=== PATIENT | male | born 1950 ===

== ENCOUNTER 2017-04-28 12:01 | Inpatient (IN) | payer MEDICARE ==
[2017-04-28] MEDS ORDERED: Ipratropium 0.02% Inhal Soln (0.5 mg/2.5 ml) UD IH STA ×2 (12:28)
[2017-04-28] MEDS ORDERED: Levalbuterol 1.25 MG/3 ML Inhal Soln UD IH STA ×2 (12:28)
[2017-04-28] MEDS ORDERED: guaiFENesin 200 mg/10 ml Syrup UD PO STA (12:29)
--- NOTE | 2017-04-28 12:30 | ED PDOC ---
Arrival/HPI - General Chief Complaint: Shortness Of Breath Time Seen by Provider: 04/28/17 12:03 Historian: Patient - History of Present Illness Narrative History of Present Illness (Text): 04/28/17 12:26 Benny Chavez is a 66 year old male, with a history of ESRD on dialysis MWF, hypertension, Colon CA in remission, diabetes and CABG, presents to the emergency department complaining of 1 month duration of shortness of breath and wheezing. Patient is also complaining of productive cough. He reports he was evaluated by PMD for similar symptoms by PMD and was started on antibiotics for bronchitis. His symptoms are now worse over the past few days. Reports of minimal symptomatic relief following medication. Denies any fever, chills, headache, chest pain, abdominal pain, nausea, vomiting, diarrhea, or any other complaints at this time. Time/Duration: Other (1 month ) Symptom Onset: Gradual Symptom Course: Unchanged Activities at Onset: Light Context: Home Past Medical History - Provider Review Nursing Documentation Reviewed: Yes - Cardiac Hx Hypertension: Yes Hx Pacemaker: Yes - Renal Hx Dialysis: Yes (M-W-F) - Endocrine/Metabolic Hx Diabetes Mellitus Type 2: Yes - Hematological/Oncological Hx Cancer: Yes (colon) - Musculoskeletal/Rheumatological Hx Unsteady Gait: Yes - Psychiatric Hx Substance Use: No - Surgical History Hx Open Heart Surgery: Yes Other/Comment: Pacemaker/defib, colon removal(1 F) - Anesthesia Hx Anesthesia: Yes Hx Anesthesia Reactions: No Hx Malignant Hyperthermia: No Family/Social History - Physician Review Nursing Documentation Reviewed: Yes Family/Social History: No Known Family HX Smoking Status: Never Smoked Hx Alcohol Use: No Hx Substance Use: No Allergies/Home Meds Allergies/Adverse Reactions: Allergies No Known Allergies Allergy (Verified 04/28/17 12:13) Home Medications: Home Meds Medication Instructions Recorded Confirmed Amiodarone HCl [Pacerone] 200 mg PO BID 04/28/17 04/28/17 Apixaban [Eliquis] 2.5 mg PO BID 04/28/17 04/28/17 Aspirin [Ecotrin] 81 mg PO DAILY 04/28/17 04/28/17 Azithromycin [Zithromax] 250 mg PO DAILY 04/28/17 04/28/17 Cinacalcet [Sensipar] 90 mg PO BID 04/28/17 04/28/17 Enalapril Maleate [Vasotec] 10 mg PO TID 04/28/17 04/28/17 Insulin Lispro Protamin/Lispro 10 units SC TID 04/28/17 04/28/17 [Humalog Mix 75-25 Kwikpen] Metoprolol Succinate [Toprol XL] 50 mg PO DAILY 04/28/17 04/28/17 Sevelamer Carbonate [Renvela] 7 tab PO TID 04/28/17 04/28/17 Zolpidem [Ambien] 10 mg PO DAILY 04/28/17 04/28/17 Review of Systems - Physician Review All systems were reviewed & negative as marked: Yes - Review of Systems Constitutional: Normal. absent: Fatigue, Fevers Respiratory: SOB, Cough, Sputum, Wheezing Cardiovascular: Normal. absent: Chest Pain, Palpitations Gastrointestinal: Normal. absent: Abdominal Pain, Diarrhea, Nausea, Vomiting Neurological: Normal. absent: Headache, Dizziness Psychiatric: Normal Physical Exam Vital Signs Reviewed: Yes Vital Signs Temp Pulse Resp BP Pulse Ox 04/28/17 14:23 73 20 122/66 98 04/28/17 12:41 99.2 F 04/28/17 12:02 99.1 F 67 22 144/74 99 Temperature: Afebrile Blood Pressure: Normal Pulse: Regular Respiratory Rate: Normal Appearance: Positive for: Uncomfortable Pain Distress: None Mental Status: Positive for: Alert and Oriented X 3 - Systems Exam Head: Present: Atraumatic, Normocephalic Pupils: Present: PERRL Conjunctiva: Present: Normal Mouth: Present: Moist Mucous Membranes Pharnyx: Present: Normal. No: ERYTHEMA, EXUDATE, TONSILS ENLARGED Neck: Present: Normal Range of Motion. No: JVD Respiratory/Chest: Present: Wheezes (Diffuse wheezing ), Tachypneic. No: Respiratory Distress, Accessory Muscle Use Cardiovascular: Present: Regular Rate and Rhythm, Normal S1, S2. No: Murmurs Abdomen: Present: Normal Bowel Sounds. No: Tenderness, Distention, Peritoneal Signs Upper Extremity: Present: Normal Inspection, Other (+ Bruit Left AV graft ). No : Cyanosis, Edema Lower Extremity: Present: Normal Inspection, Neurovascularly Intact, Capillary Refill < 2 s. No: Edema, CALF TENDERNESS, Swelling Neurological: Present: GCS=15, CN II-XII Intact, Speech Normal, Motor Func Grossly Intact, Normal Sensory Function Skin: Present: Warm, Dry, Normal Color. No: Rashes Psychiatric: Present: Alert, Oriented x 3, Normal Insight, Normal Concentration Medical Decision Making ED Course and Treatment: 04/28/17 12:33 Impression: A 66 year old male complaining of shortness of breath and wheezing for past month. Differential Diagnosis include but are not limited to: Asthmatic Bronchitis vs. Pneumonia vs. GERD vs. Lung mass vs. CHF Plan: -- Labs -- Chest X-ray -- Robitussin -- Atrovent -- Xopenex -- Solumedrol -- Blood Culture -- Procalcitonin -- Reassess and disposition Progress Notes: EKG interpreted by me: 04/28/17 13:20 Chest X-ray interpreted by radiologist: FINDINGS: LUNGS: No active pulmonary disease. PLEURA: No significant pleural effusion identified, no pneumothorax apparent. CARDIOVASCULAR: Mild cardiomegaly. Sternal wires are present. OSSEOUS STRUCTURES: No significant abnormalities. VISUALIZED UPPER ABDOMEN: Normal. OTHER FINDINGS: Dual lead pacemaker on the right IMPRESSION: No active disease. 04/28/17 13:47 Case discussed with who agrees with the plan to observe patient at telemetry for asthmatic bronchitis. Accepts patient under his service with Dr. Daniels on consult. 04/28/17 14:[address] Small is on the blue list, so the patient will now be admitted to Dr. Lauren's service, with whom the case was discussed. - Lab Interpretations Lab Results: 04/28/17 12:15 04/28/17 12:15 Lab Results 04/28/17 12:15: Sodium 133, Chloride 94 L, Potassium 5.7 H*, Carbon Dioxide 23, Anion Gap 22 H, BUN 46 H, Creatinine 8.5 H*, Est GFR ( Amer) 8, Est GFR ( Non-Af Amer) 6, Random Glucose 99, Calcium 10.2, Phosphorus 5.7 H, Magnesium 2.2 , Total Bilirubin 1.3, AST 32, ALT 34, Alkaline Phosphatase 92, Lactate Dehydrogenase 464, Total Creatine Kinase 305 H, CK-MB (CK-2) 4.7 H, CK-MB (CK-2 ) % Cancelled, Troponin I 0.05, Total Protein 6.9, Albumin 4.0, Globulin 2.9, Albumin/Globulin Ratio 1.4, Lipase 128 04/28/17 12:15: pO2 133 H, VBG pH 7.32, VBG pCO2 50.0, VBG HCO3 25.8, VBG Total CO2 27.3, VBG O2 Sat (Calc) 97.3 H, VBG Base Excess -0.9 L, VBG Potassium 6.4 H* , Sodium 130.0 L, Chloride 96.0 L, Glucose 99, Lactate 1.3, FiO2 21.0, Venous Blood Potassium 6.4 H* 04/28/17 12:15: PT 10.6, INR 0.98, APTT 27.2 04/28/17 12:15: WBC 6.9, RBC 3.67, Hgb 10.9 L, Hct 33.5 L, MCV 91.3, MCH 29.7, MCHC 32.5, RDW 14.1, Plt Count 174, MPV 9.2, Gran % 62.4, Lymph % (Auto) 23.0, Glynn % (Auto) 9.6 H, Eos % (Auto) 4.4, Baso % (Auto) 0.6, Gran # 4.28, Lymph # 1.6, Glynn # 0.7 H, Eos # 0.3, Baso # 0.04, ESR 16 H - RAD Interpretation Radiology Orders: 04/28/17 12:30 CHEST PORTABLE [RAD] Stat - EKG Interpretation EKG Interpretation (Text): 04/28/17 14:36 Wide QRS @ 72 with left axis deviation with LVH; LAD; QRS is 194 Interpreted by ED Physician: Yes Type: 12 lead EKG Comparison: No previous EKG avail. - Medication Orders Current Medication Orders: Levofloxacin/Dextrose (Levaquin 750mg) 750 mg in 150 mls @ 100 mls/hr IVPB STAT STA Stop: 04/28/17 15:16 Last Admin: 04/28/17 13:53 Dose: 100 mls/hr Discontinued Medications Alprazolam (Xanax) 0.25 mg PO STAT STA PRN Reason: Protocol Stop: 04/28/17 13:42 Last Admin: 04/28/17 13:53 Dose: 0.25 mg Guaifenesin (Robitussin) 400 mg PO ONCE STA Stop: 04/28/17 12:30 Last Admin: 04/28/17 12:56 Dose: 400 mg Ipratropium [place] (Atrovent) 0.5 mg IH STAT STA Stop: 04/28/17 12:29 Last Admin: 04/28/17 13:12 Dose: 0.5 mg Ipratropium [place] (Atrovent) 0.5 mg IH STAT STA Stop: 04/28/17 12:29 Last Admin: 04/28/17 12:56 Dose: 0.5 mg Levalbuterol HCl (Xopenex) 1.25 mg IH STAT STA Stop: 04/28/17 12:29 Last Admin: 04/28/17 13:12 Dose: 1.25 mg Levalbuterol HCl (Xopenex) 1.25 mg IH STAT STA Stop: 04/28/17 12:29 Last Admin: 04/28/17 12:57 Dose: 1.25 mg Methylprednisolone (Solu-Medrol) 125 mg IVP STAT STA Stop: 04/28/17 12:29 Last Admin: 04/28/17 12:57 Dose: 125 mg Pantoprazole Sodium (Protonix Inj) 40 mg IVP ONCE STA Stop: 04/28/17 13:49 Last Admin: 04/28/17 13:53 Dose: 40 mg - Scribe Statement The provider has reviewed the documentation as recorded by the Valeriy Pressley Provider Attestation: Provider Scribe Attestation: All medical record entries made by the Valeriy were at my direction and personally dictated by me. I have reviewed the chart and agree that the record accurately reflects my personal performance of the history, physical exam, medical decision making, and the department course for this patient. I have also personally directed, reviewed, and agree with the discharge instructions and disposition. Disposition/Present on Arrival - Present on Arrival Any Indicators Present on Arrival: No History of DVT/PE: No History of Uncontrolled Diabetes: No Urinary Catheter: No History of Decub. Ulcer: No History Surgical Site Infection Following: None - Disposition Have Diagnosis and Disposition been Completed?: Yes Diagnosis: Asthmatic bronchitis Disposition: HOSPITALIZED Disposition Time: 13:45 Patient Plan: Observation, Telemetry Condition: FAIR
[2017-04-28 12:51] LABS: BASO # 0.04 K/mm3 (0.0-2.0); BASO % 0.6 % (0.0-3.0); EOS # 0.3 (0.0-0.7); EOS % 4.4 % (1.5-5.0); GRAN # 4.28 (1.4-6.5); GRAN % 62.4 % (50.0-68.0); HEMOGLOBIN 10.9 gm/dL (14.0-18.0); LYMPH # 1.6 (1.2-3.4); MEAN CELL VOLUME 91.3 fL (80.0-105.0); MEAN CORPUSCULAR HEMOGLOBIN 29.7 pg (25.0-35.0); MEAN CORPUSCULAR HGB CONC 32.5 g/dl (31.0-37.0); MEAN PLATELET VOLUME 9.2 fl (7.0-11.0); MONO # 0.7 (0.1-0.6); MONO % 9.6 % (1.0-6.0); PLATELET COUNT 174 10^3/uL (120.0-450.0); RBC 3.67 10^6/uL (3.5-6.1); RED CELL DISTRIBUTION WIDTH 14.1 % (11.5-14.5); WHITE BLOOD COUNT 6.9 10^3/ul (4.5-11.0)
--- NOTE | 2017-04-28 12:58 | RAD ---
HISTORY: Sepsis Patient COMPARISON: No prior. FINDINGS: LUNGS: No active pulmonary disease. PLEURA: No significant pleural effusion identified, no pneumothorax apparent. CARDIOVASCULAR: Mild cardiomegaly. Sternal wires are present. OSSEOUS STRUCTURES: No significant abnormalities. VISUALIZED UPPER ABDOMEN: Normal. OTHER FINDINGS: Dual lead pacemaker on the right IMPRESSION: No active disease.
[2017-04-28 13:01] LABS: VENOUS BLOOD GAS BASE EXCESS -0.9 mmol/L (0.0-2.0); VENOUS BLOOD GAS PO2 133 mm/Hg (30-55); VENOUS BLOOD PH 7.32 (7.32-7.43)
[2017-04-28 13:07] LABS: ALB/GLOB RATIO 1.4 (1.1-1.8); CALCIUM 10.2 mg/dL (8.4-10.5); MAGNESIUM 2.2 mg/dL (1.7-2.2)
[2017-04-28 13:18] LABS: TROPONIN I 0.05 ng/mL
[2017-04-28 13:22] LABS: CK-MB 4.7 ng/mL (0.0-3.6)
[2017-04-28 13:41] LABS: INR 0.98 (0.93-1.08); PARTIAL THROMBOPLASTIN TIME 27.2 Seconds (23.7-30.8); PROTHROMBIN TIME 10.6 Seconds (9.9-11.8)
[2017-04-28] MEDS ORDERED: levoFLOXacin 750 mg in D5W 750 MG/150 ML BAG IVPB STA (13:47)
--- NOTE | 2017-04-28 14:45 | CT ---
PROCEDURE: CT Chest without contrast HISTORY: persistent cough, worse sob, history of colon ca COMPARISON: None. TECHNIQUE: Contiguous axial images were obtained through the chest without intravenous contrast enhancement. Sagittal and coronal reconstructions were performed. Radiation dose (DLP): mGy-cm. This CT exam was performed using one or more of the following dose reduction techniques: Automated exposure control, adjustment of the mA and/or kV according to patient size, and/or use of iterative reconstruction technique. FINDINGS: LUNGS: There is peribronchial thickening bilaterally most consistent with chronic bronchiectasis. There is no focal consolidation. MEDIASTINUM: Unremarkable thoracic aorta. No aneurysm. Heavily calcified coronary arteries. Pacemaker. Sternal wires. Main pulmonary artery unremarkable. No vascular congestion. No lymphadenopathy. PLEURA: No pleural fluid. No pneumothorax. BONES: No fracture. No destructive lesion. UPPER ABDOMEN: Grossly unremarkable. OTHER FINDINGS: None. IMPRESSION: Peribronchial thickening and bronchiectasis. No focal consolidation
[2017-04-28 15:26] VITALS: BMI 26.6
[2017-04-28] MEDS ORDERED: levoFLOXacin 750 mg in D5W 150 ML BAG IVPB ONE (20:00)
[2017-04-28] MEDS: Albuterol-Ipratrop 3 mg / 0.5 (3 ml) UD IH SCH (20:15)
[2017-04-28] MEDS: guaiFENesin DM 100 mg-10 mg/5 ml UD PO PRN (21:33)
[2017-04-28] MEDS: Insulin Reg-LOW-Coverage SC SCH (21:40)
[2017-04-28 22:31] LABS: TROPONIN I 0.05 ng/mL
[2017-04-28 22:36] LABS: CK-MB 4.6 ng/mL (0.0-3.6)
--- NOTE | 2017-04-28 22:58 | CP.PCM.PN ---
Subjective - Date & Time of Evaluation Date of Evaluation: 04/28/17 Time of Evaluation: 22:43 - Subjective Subjective: Patient was seen at bedside because his BP was 200/92. Has no complaints now. Denies chest pain, sob, headache, heaviness in the head, lightheadedness, nausea, vomiting, dizziness, paraesthesia. Medical record was reviewed. This 66 year old male was admitted with sob and wheezing of one month duration. Has PMH of HTN, ESRD,anemia, DM, colon cancer, CABG, pacemaker insertion. As per patient and , he is on lopressor and vasotec at home. Did not have had his blood pressure medications today. Objective - Vital Signs/Intake and Output Vital Signs (last 24 hours): Temp Pulse Resp BP Pulse Ox 98 F 74 18 169/85 H 96 04/28/17 17:02 04/28/17 22:00 04/28/17 17:02 04/28/17 17:02 04/28/17 17:02 - Medications Medications: Current Medications Albuterol/Ipratropium (Duoneb 3 Mg/0.5 Mg (3 Ml) Ud) 3 ml IH [id number] [facility] Last Admin: 04/28/17 20:15 Dose: 3 ml Amiodarone HCl (Cordarone) 200 mg PO BID [facility] Apixaban (Eliquis) 2.5 mg PO BID [facility] PRN Reason: Protocol Aspirin (Ecotrin) 81 mg PO DAILY [facility] Azithromycin (Zithromax) 250 mg PO DAILY [facility] PRN Reason: Protocol Cinacalcet (Sensipar) 90 mg PO BID [facility] Guaifenesin/Dextromethorphan (Robitussin Dm) 7.5 ml PO QID PRN PRN Reason: Cough Last Admin: 04/28/17 21:33 Dose: 7.5 ml Levofloxacin/Dextrose (Levaquin 500mg) 500 mg in 100 mls @ 100 mls/hr IVPB Q48H [facility] Insulin Human Regular (Humulin R Low) 0 units SC ACHS [facility] PRN Reason: Protocol Last Admin: 04/28/17 21:40 Dose: Not Given Insulin Lispro Protam/Lispro Human (Humalog Mix 75/25) 10 units SC TID [facility] Lisinopril (Zestril) 20 mg PO DAILY [facility] Methylprednisolone (Solu-Medrol) 40 mg IVP DAILY [facility] Metoprolol Succinate (Toprol Xl) 50 mg PO DAILY [facility] Sevelamer HCl (Renagel) 4,000 mg PO WM [facility] Zolpidem Tartrate (Ambien) 5 mg PO HS PRN; Protocol PRN Reason: Insomnia Last Admin: 04/28/17 21:33 Dose: 5 mg - Labs Labs: PT 10.6 Seconds (9.9-11.8) 04/28/17 12:15 INR 0.98 (0.93-1.08) 04/28/17 12:15 APTT 27.2 Seconds (23.7-30.8) 04/28/17 12:15 Most Recent Lab Values WBC 6.9 10^3/ul (4.5-11.0) 04/28/17 12:15 RBC 3.67 10^6/uL (3.5-6.1) 04/28/17 12:15 Hgb 10.9 gm/dL (14.0-18.0) L 04/28/17 12:15 Hct 33.5 % (42.0-52.0) L 04/28/17 12:15 MCV 91.3 fL (80.0-105.0) 04/28/17 12:15 MCH 29.7 pg (25.0-35.0) 04/28/17 12:15 MCHC 32.5 g/dl (31.0-37.0) 04/28/17 12:15 RDW 14.1 % (11.5-14.5) 04/28/17 12:15 Plt Count 174 10^3/uL (120.0-450.0) 04/28/17 12:15 MPV 9.2 fl (7.0-11.0) 04/28/17 12:15 Gran % 62.4 % (50.0-68.0) 04/28/17 12:15 Lymph % (Auto) 23.0 % (22.0-35.0) 04/28/17 12:15 Stanley % (Auto) 9.6 % (1.0-6.0) H 04/28/17 12:15 Eos % (Auto) 4.4 % (1.5-5.0) 04/28/17 12:15 Baso % (Auto) 0.6 % (0.0-3.0) 04/28/17 12:15 Gran # 4.28 (1.4-6.5) 04/28/17 12:15 Lymph # 1.6 (1.2-3.4) 04/28/17 12:15 Stanley # 0.7 (0.1-0.6) H 04/28/17 12:15 Eos # 0.3 (0.0-0.7) 04/28/17 12:15 Baso # 0.04 K/mm3 (0.0-2.0) 04/28/17 12:15 ESR 16 mm/hr (0.00-15.0) H 04/28/17 12:15 PT 10.6 Seconds (9.9-11.8) 04/28/17 12:15 INR 0.98 (0.93-1.08) 04/28/17 12:15 APTT 27.2 Seconds (23.7-30.8) 04/28/17 12:15 pO2 133 mm/Hg (30-55) H 04/28/17 12:15 VBG pH 7.32 (7.32-7.43) 04/28/17 12:15 VBG pCO2 50.0 (40-60) 04/28/17 12:15 VBG HCO3 25.8 mmol/l (21-28) 04/28/17 12:15 VBG Total CO2 27.3 mmol.L (22-28) 04/28/17 12:15 VBG O2 Sat (Calc) 97.3 % (40-65) H 04/28/17 12:15 VBG Base Excess -0.9 mmol/L (0.0-2.0) L 04/28/17 12:15 VBG Potassium 6.4 mmol/L (3.6-5.2) H* 04/28/17 12:15 Sodium 130.0 mmol/L (132-148) L 04/28/17 12:15 Chloride 96.0 mmol/L (98-107) L 04/28/17 12:15 Glucose 99 mg/dl (75-110) 04/28/17 12:15 Lactate 1.3 mmol/L (0.7-2.1) 04/28/17 12:15 FiO2 21.0 % 04/28/17 12:15 Sodium 133 mmol/L (132-148) 04/28/17 12:15 Potassium 5.7 mmol/L (3.6-5.0) H* 04/28/17 12:15 Chloride 94 mmol/L (98-107) L 04/28/17 12:15 Carbon Dioxide 23 mmol/L (21-33) 04/28/17 12:15 Anion Gap 22 (10-20) H 04/28/17 12:15 BUN 46 mg/dL (7-21) H 04/28/17 12:15 Creatinine 8.5 mg/dL (0.5-1.4) H* 04/28/17 12:15 Est GFR ( Amer) 8 04/28/17 12:15 Est GFR (Non-Af Amer) 6 04/28/17 12:15 POC Glucose (mg/dL) 146 mg/dL (65-110) H 04/28/17 16:07 Random Glucose 99 mg/dL (70-110) 04/28/17 12:15 Calcium 10.2 mg/dL (8.4-10.5) 04/28/17 12:15 Phosphorus 5.7 mg/dL (2.5-4.5) H 04/28/17 12:15 Magnesium 2.2 mg/dL (1.7-2.2) 04/28/17 12:15 Total Bilirubin 1.3 mg/dL (0.2-1.3) 04/28/17 12:15 AST 32 U/L (15-59) 04/28/17 12:15 ALT 34 U/L (7-56) 04/28/17 12:15 Alkaline Phosphatase 92 U/L (38-133) 04/28/17 12:15 Lactate Dehydrogenase 451 U/L (333-699) 04/28/17 21:50 Total Creatine Kinase 289 U/L (35-230) H 04/28/17 21:50 CK-MB (CK-2) 4.6 ng/mL (0.0-3.6) H 04/28/17 21:50 CK-MB (CK-2) % Cancelled 04/28/17 12:15 Troponin I 0.05 ng/mL 04/28/17 21:50 C-React Prot High Sens 5.96 mg/L (1.00-3.00) H 04/28/17 12:15 Total Protein 6.9 g/dL (5.8-8.3) 04/28/17 12:15 Albumin 4.0 g/dL (3.0-4.8) 04/28/17 12:15 Globulin 2.9 gm/dL 04/28/17 12:15 Albumin/Globulin Ratio 1.4 (1.1-1.8) 04/28/17 12:15 Lipase 128 U/L (23-300) 04/28/17 12:15 Procalcitonin 0.71 NG/ML (0.19-0.49) H 04/28/17 12:15 Venous Blood Potassium 6.4 mmol/L (3.6-5.2) H* 04/28/17 12:15 - Constitutional Appears: Well, No Acute Distress - Head Exam Head Exam: ATRAUMATIC, NORMAL INSPECTION, NORMOCEPHALIC - Eye Exam Eye Exam: Normal appearance - ENT Exam ENT Exam: Normal External Ear Exam - Neck Exam Neck Exam: Normal Inspection - Respiratory Exam Respiratory Exam: NORMAL BREATHING PATTERN - Cardiovascular Exam Cardiovascular Exam: absent: JVD - GI/Abdominal Exam GI & Abdominal Exam: absent: Distended - Rectal Exam Rectal Exam: Deferred - Exam Additional comments: Deferred. - Extremities Exam Extremities Exam: Normal Inspection - Back Exam Back Exam: NORMAL INSPECTION - Neurological Exam Neurological Exam: Alert, Oriented x3 - Psychiatric Exam Psychiatric exam: Normal Affect, Normal Mood - Skin Skin Exam: Normal Color Assessment and Plan - Assessment and Plan (Free Text) Assessment: Elevated blood pressure reading. ESRD. On hemodialysis. Anemia. CAD. Hx CABG. Hx Pacemaker/Defibrillation. DM II . Colon cancer history. Plan: Clonidine 0.2 mg PO now. Recheck BP in one hour. Continue management as planned by PMD.
[2017-04-29] MEDS: Albuterol-Ipratrop 3 mg / 0.5 (3 ml) UD IH SCH ×5 (02:20→21:40)
--- NOTE | 2017-04-29 09:53 | CARD ---
APPROVED REPORT EKG Measurement Heart [id number] <Conclusion> Edgardo Zimmer with [employer]
[2017-04-29] MEDS ORDERED: Home Med 1 UNIT PO SCH (10:00)
[2017-04-29] MEDS ORDERED: MethylPREDNISolone 40 mg Vial IVP SCH (10:00)
[2017-04-29] MEDS: Insulin Reg-LOW-Coverage SC SCH ×4 (10:03→23:08)
[2017-04-29] MEDS: Insulin Lispro (humaLOG) MIX 75/25(10 ml) SC SCH ×3 (11:21→20:39)
[2017-04-29] MEDS: guaiFENesin DM 100 mg-10 mg/5 ml UD PO PRN ×2 (11:24→20:43)
[2017-04-29] MEDS ORDERED: levoFLOXacin 500 MG TAB PO ONE ×2 (13:58→15:30)
--- NOTE | 2017-04-29 14:00 | CP.PCM.CON ---
History of Present Illness - History of Present Illness History of Present Illness: Reason for consultation: SOB, Hyperkalemia, ESRD HPI: Benny Chavez is a 66 year old male, with a history of ESRD on dialysis MWF, hypertension, Colon CA, s/p hemicolectomy 2002, in remission, diabetes and CABG 2002, AICD, L AVFpresents to the emergency department complaining of 1 month duration of shortness of breath and wheezing. Patient is also complaining of productive cough. He reports he was evaluated by PMD for similar symptoms by PMD and was started on antibiotics for bronchitis. His symptoms are now worse over the past few days. Reports of minimal symptomatic relief following medication. Denies any fever, chills, headache, chest pain, abdominal pain, nausea, vomiting, diarrhea, or any other complaints at this time. PMSHx: as mentioned in HPI FHX: DM And HTN Social Hx: No smoking, no alcohol, No IVDA All: NKDA Meds: reviewed Review of Systems - Review of Systems All systems: reviewed and no additional remarkable complaints except Past Patient History - Past Social History Smoking Status: Never Smoked - CARDIAC Hx Hypertension: Yes Hx Pacemaker: Yes - RENAL Hx Dialysis: Yes (M-W-F) - ENDOCRINE/METABOLIC Hx Diabetes Mellitus Type 2: Yes - HEMATOLOGICAL/ONCOLOGICAL Hx Cancer: Yes (colon) - MUSCULOSKELETAL/RHEUMATOLOGICAL Hx Falls: No - PSYCHIATRIC Hx Substance Use: No - SURGICAL HISTORY Hx Open Heart Surgery: Yes Other/Comment: Pacemaker/defib, colon removal(1 F) - ANESTHESIA Hx Anesthesia: Yes Hx Anesthesia Reactions: No Hx Malignant Hyperthermia: No Meds Allergies/Adverse Reactions: Allergies Allergy/AdvReac Type Severity Reaction Status Date / Time No Known Allergies Allergy Verified 04/28/17 12:13 - Medications Medications: Current Medications Albuterol/Ipratropium (Duoneb 3 Mg/0.5 Mg (3 Ml) Ud) 3 ml IH [id number] [facility] Last Admin: 04/29/17 13:28 Dose: 3 ml Amiodarone HCl (Cordarone) 200 mg PO BID [facility] Last Admin: 04/29/17 11:15 Dose: Not Given Apixaban (Eliquis) 2.5 mg PO BID [facility] PRN Reason: Protocol Last Admin: 04/29/17 11:15 Dose: 2.5 mg Aspirin (Ecotrin) 81 mg PO DAILY [facility] Last Admin: 04/29/17 11:15 Dose: 81 mg Azithromycin (Zithromax) 250 mg PO DAILY [facility] PRN Reason: Protocol Last Admin: 04/29/17 11:15 Dose: 250 mg Cinacalcet (Sensipar) 90 mg PO BID [facility] Last Admin: 04/29/17 10:06 Dose: 90 mg Guaifenesin/Dextromethorphan (Robitussin Dm) 7.5 ml PO QID PRN PRN Reason: Cough Last Admin: 04/29/17 11:24 Dose: 7.5 ml Levofloxacin/Dextrose (Levaquin 500mg) 500 mg in 100 mls @ 100 mls/hr IVPB Q48H [facility] Insulin Human Regular (Humulin R Low) 0 units SC ACHS [facility] PRN Reason: Protocol Last Admin: 04/29/17 12:45 Dose: 1 units Insulin Lispro Protam/Lispro Human (Humalog Mix 75/25) 10 units SC TID [facility] Last Admin: 04/29/17 11:21 Dose: 10 u Lisinopril (Zestril) 20 mg PO DAILY [facility] Methylprednisolone (Solu-Medrol) 40 mg IVP DAILY [facility] Last Admin: 04/29/17 11:15 Dose: 40 mg Metoprolol Succinate (Toprol Xl) 50 mg PO DAILY [facility] Sevelamer HCl (Renagel) 4,000 mg PO WM [facility] Last Admin: 04/29/17 12:44 Dose: 4,000 mg Zolpidem Tartrate (Ambien) 5 mg PO HS PRN; Protocol PRN Reason: Insomnia Last Admin: 04/28/17 21:33 Dose: 5 mg Physical Exam - Constitutional Appears: In Acute Distress, Chronically Ill - Head Exam Head Exam: NORMAL INSPECTION, NORMOCEPHALIC - Eye Exam Additional comments: corneal opacity R eye - ENT Exam ENT Exam: Mucous Membranes Moist - Neck Exam Neck exam: Positive for: Normal Inspection - Respiratory Exam Respiratory Exam: Decreased Breath Sounds, Prolonged Expiratory Phase, Rhonchi, Wheezes - Cardiovascular Exam Cardiovascular Exam: REGULAR RHYTHM, +S1, +S2 - GI/Abdominal Exam GI & Abdominal Exam: Distended, Normal Bowel Sounds, Soft - Extremities Exam Extremities exam: Positive for: normal inspection Results - Vital Signs Recent Vital Signs: Last Vital Signs Temp 97.5 F L 04/29/17 06:00 Pulse 60 07/10/17 10:00 Resp 18 04/29/17 06:00 BP 149/77 04/29/17 06:00 Pulse Ox 99 04/29/17 06:00 - Labs Result Diagrams: 04/28/17 12:15 04/28/17 12:15 Labs: Laboratory Results - last 24 hr 04/28/17 04/28/17 04/29/17 16:07 21:50 07:37 POC Glucose (mg/dL) 146 H 166 H Lactate Dehydrogenase 451 Total Creatine Kinase 289 H CK-MB (CK-2) 4.6 H CK-MB (CK-2) % Cancelled Troponin I 0.05 04/29/17 11:32 POC Glucose (mg/dL) 166 H Lactate Dehydrogenase Total Creatine Kinase CK-MB (CK-2) CK-MB (CK-2) % Troponin I Assessment & Plan - Assessment and Plan (Free Text) Assessment: 66 yr old male with NIDDM, HTN, CAD,CABG, ESRD admitted with cough, SOB, wheezing Acute Bronchitis vs cardiac asthma Hyperkalemia NIDDM HTN ESRD Respiratory treatments Urgent HD Increase UF as tolerated Con't FS and Insulin coverage Empiric Abx Renal diet Thank you for the coutesy of this consultation - Date & Time Date: 04/29/17 Time: 13:00
[2017-04-29 15:45] LABS: HEMOGLOBIN 10.4 gm/dL (14.0-18.0); MEAN CELL VOLUME 89.1 fL (80.0-105.0); MEAN CORPUSCULAR HEMOGLOBIN 29.8 pg (25.0-35.0); MEAN CORPUSCULAR HGB CONC 33.4 g/dl (31.0-37.0); MEAN PLATELET VOLUME 9.3 fl (7.0-11.0); PLATELET COUNT 160 10^3/uL (120.0-450.0); RBC 3.49 10^6/uL (3.5-6.1); RED CELL DISTRIBUTION WIDTH 13.8 % (11.5-14.5); WHITE BLOOD COUNT 11.8 10^3/ul (4.5-11.0)
[2017-04-29 15:54] LABS: ALB/GLOB RATIO 1.5 (1.1-1.8); ALBUMIN 4.1 g/dL (3.0-4.8); CALCIUM 10.1 mg/dL (8.4-10.5); MAGNESIUM 2.2 mg/dL (1.7-2.2)
[2017-04-29 16:45] LABS: ANISOCYTOSIS SLIGHT; LYMPHOCYTE 3 % (22.0-35.0); MONOCYTE 2 % (1.0-6.0); NEUTROPHIL 95 % (50.0-70.0); PLATELET ESTIMATE NORMAL (NORMAL)
--- NOTE | 2017-04-29 20:15 | CP.PCM.CON ---
History of Present Illness - History of Present Illness History of Present Illness: his 66 year old male was admitted with sob and wheezing of one month duration. H/O of HTN, ESRD dialysis dependent,anemia, DM, colon cancer, CABG, pacemaker insertion morbid obesity,He is started on antibiotics, steroids and inhale bronchodilators, admite to have load snoring and daytime sleepiness. Review of Systems - Review of Systems Systems not reviewed;Unavailable: Respiratory Distress - Constitutional Constitutional: Daytime Sleepiness, Fatigue, Snoring, Sleep Apnea - EENT Eyes: absent: Discharge, Itchy Eyes Ears: absent: Ear Discharge Nose/Mouth/Throat: Dry Mouth, Other Additional comments: malamparti score plus four - Cardiovascular Cardiovascular: Dyspnea, Orthopnea - Respiratory Respiratory: Cough, Dyspnea, Wheezing, Snoring, Chest Congestion, Excessive Mucous Production. absent: Hemoptysis, Stridor, Pain on Inspiration - Gastrointestinal Gastrointestinal: absent: Abdominal Pain, Bloating, Change in Stool Character, Coffee Ground Emesis - Genitourinary Additional comments: does not make urine - Musculoskeletal Musculoskeletal: absent: Arthralgias, Back Pain, Joint Swelling - Integumentary Integumentary: absent: Bleeding Lesions, Lesions - Endocrine Endocrine: Fatigue. absent: Excessive Sweating - Hematologic/Lymphatic Hematologic: absent: Easy Bruising Past Patient History - Past Social History Smoking Status: Never Smoked - CARDIAC Hx Hypertension: Yes Hx Pacemaker: Yes - PULMONARY Hx Lung Cancer: No Hx Pulmonary Embolism: No - RENAL Hx Dialysis: Yes (M-W-F) - ENDOCRINE/METABOLIC Hx Diabetes Mellitus Type 2: Yes - HEMATOLOGICAL/ONCOLOGICAL Hx Cancer: Yes (colon) - MUSCULOSKELETAL/RHEUMATOLOGICAL Hx Falls: No - PSYCHIATRIC Hx Substance Use: No - SURGICAL HISTORY Hx Open Heart Surgery: Yes Other/Comment: Pacemaker/defib, colon removal(1 F) - ANESTHESIA Hx Anesthesia: Yes Hx Anesthesia Reactions: No Hx Malignant Hyperthermia: No Meds Allergies/Adverse Reactions: Allergies Allergy/AdvReac Type Severity Reaction Status Date / Time No Known Allergies Allergy Verified 04/28/17 12:13 - Medications Medications: Current Medications Albuterol/Ipratropium (Duoneb 3 Mg/0.5 Mg (3 Ml) Ud) 3 ml IH [id number] [facility] Last Admin: 04/29/17 19:31 Dose: Not Given Amiodarone HCl (Cordarone) 200 mg PO BID [facility] Last Admin: 04/29/17 11:15 Dose: Not Given Apixaban (Eliquis) 2.5 mg PO BID [facility] PRN Reason: Protocol Last Admin: 04/29/17 11:15 Dose: 2.5 mg Aspirin (Ecotrin) 81 mg PO DAILY [facility] Last Admin: 04/29/17 11:15 Dose: 81 mg Azithromycin (Zithromax) 250 mg PO DAILY [facility] PRN Reason: Protocol Last Admin: 04/29/17 11:15 Dose: 250 mg Cinacalcet (Sensipar) 90 mg PO BID [facility] Last Admin: 04/29/17 10:06 Dose: 90 mg Guaifenesin/Dextromethorphan (Robitussin Dm) 7.5 ml PO QID PRN PRN Reason: Cough Last Admin: 04/29/17 11:24 Dose: 7.5 ml Insulin Human Regular (Humulin R Low) 0 units SC ACHS [facility] PRN Reason: Protocol Last Admin: 04/29/17 12:45 Dose: 1 units Insulin Lispro Protam/Lispro Human (Humalog Mix 75/25) 10 units SC TID [facility] Last Admin: 04/29/17 14:17 Dose: Not Given Levofloxacin (Levaquin) 250 mg PO Q48H [facility] Lisinopril (Zestril) 20 mg PO DAILY [facility] Methylprednisolone (Solu-Medrol) 60 mg IVP BID [facility] Metoprolol Succinate (Toprol Xl) 50 mg PO DAILY [facility] Sevelamer HCl (Renagel) 4,000 mg PO WM [facility] Last Admin: 04/29/17 12:44 Dose: 4,000 mg Zolpidem Tartrate (Ambien) 5 mg PO HS PRN; Protocol PRN Reason: Insomnia Last Admin: 04/28/17 21:33 Dose: 5 mg Physical Exam - Constitutional Appears: Chronically Ill - Head Exam Head Exam: ATRAUMATIC, NORMAL INSPECTION, NORMOCEPHALIC - ENT Exam ENT Exam: Mucous Membranes Moist Additional comments: malamparti plus four - Neck Exam Additional comments: short thick neck - Respiratory Exam Respiratory Exam: Prolonged Expiratory Phase, Rhonchi, Wheezes - Cardiovascular Exam Cardiovascular Exam: +S1, +S2 - GI/Abdominal Exam GI & Abdominal Exam: Normal Bowel Sounds, Soft. absent: Tenderness - Psychiatric Exam Psychiatric exam: Flat Affect - Skin Skin Exam: Dry, Intact, Normal Color Results - Vital Signs Recent Vital Signs: Last Vital Signs Temp 97.8 F 04/29/17 12:00 Pulse 76 04/29/17 18:00 Resp 21 04/29/17 12:00 BP 171/76 H 04/29/17 12:00 Pulse Ox 99 04/29/17 06:00 - Labs Result Diagrams: 04/29/17 15:15 04/29/17 15:15 Labs: Laboratory Results - last 24 hr 04/28/17 04/28/17 04/29/17 16:07 21:50 07:37 WBC RBC Hgb Hct MCV MCH MCHC RDW Plt Count MPV Neutrophils % (Manual) Lymphocytes % (Manual) Monocytes % (Manual) Platelet Evaluation Anisocytosis (manual) Sodium Potassium Chloride Carbon Dioxide Anion Gap BUN Creatinine Est GFR ( Amer) Est GFR (Non-Af Amer) POC Glucose (mg/dL) 146 H 166 H Random Glucose Calcium Phosphorus Magnesium Total Bilirubin AST ALT Alkaline Phosphatase Lactate Dehydrogenase 451 Total Creatine Kinase 289 H CK-MB (CK-2) 4.6 H CK-MB (CK-2) % Cancelled Troponin I 0.05 Total Protein Albumin Globulin Albumin/Globulin Ratio 04/29/17 04/29/17 04/29/17 11:32 15:15 15:15 WBC 11.8 H D RBC 3.49 L Hgb 10.4 L Hct 31.1 L MCV 89.1 MCH 29.8 MCHC 33.4 RDW 13.8 Plt Count 160 MPV 9.3 Neutrophils % (Manual) 95 H Lymphocytes % (Manual) 3 L Monocytes % (Manual) 2 Platelet Evaluation Normal Anisocytosis (manual) Slight Sodium 128 L Potassium 6.5 H* Chloride 91 L Carbon Dioxide 19 L Anion Gap 25 H BUN 73 H Creatinine 10.6 H* Est GFR ( Amer) 6 Est GFR (Non-Af Amer) 5 POC Glucose (mg/dL) 166 H Random Glucose 118 H Calcium 10.1 Phosphorus 7.0 H Magnesium 2.2 Total Bilirubin 1.2 AST 36 ALT 29 Alkaline Phosphatase 86 Lactate Dehydrogenase Total Creatine Kinase CK-MB (CK-2) CK-MB (CK-2) % Troponin I Total Protein 6.8 Albumin 4.1 Globulin 2.7 Albumin/Globulin Ratio 1.5 - Imaging and Cardiology CT scan - chest Additional comment: bronchiactesis and bronchiolitis Assessment & Plan (1) MARCELLO (obstructive sleep apnea) Status: Acute (2) Cardiomyopathy Status: Acute (3) Obesity (BMI 30.0-34.9) Status: Acute (4) HTN (hypertension) Status: Acute - Assessment and Plan (Free Text) Assessment: Morbid obesity, with probably MARCELLO, need to R/O chronic aspiration ESRD, uncontrole HTN, acute bronchitis with chronic aspiration - Date & Time Date: 04/29/17 Time: 16:00
[2017-04-29] MEDS: Metoprolol Succinate 50 mg XL Tab PO SCH (20:43)
--- NOTE | 2017-04-29 22:37 | CP.PCM.HP ---
History of Present Illness - History of Present Illness History of Present Illness: A 66 yr old male with hx of IDDM, HTN, ESRD on HD, CAD S\P CABG , obesity on meds came with c\o SOB, chest congestion, cold and cough symptoms for 2 weeks , took abx for 2 weeks ,still not helping . ct CHEST showed bronchectasis as per he gets this attacks 1-2\year. not on inhalers at home. Present on Admission - Present on Admission Any Indicators Present on Admission: No Review of Systems - Review of Systems Systems not reviewed;Unavailable: Respiratory Distress - Constitutional Constitutional: Fatigue, Snoring. absent: Chills, Fever, Night Sweats - EENT Eyes: Other Visual Disturbances Nose/Mouth/Throat: Dry Mouth, Hoarsness, Sore Throat. absent: Nasal Congestion , Post Nasal Drip, Sinus Pain, Neck Pain - Cardiovascular Cardiovascular: Rapid Heart Rate. absent: Chest Pain, Dyspnea, Leg Edema, Pedal Edema - Respiratory Respiratory: Cough, Dyspnea, Snoring, Chest Congestion, Excessive Mucous Production, Change in Mucous Color, Pain with Coughing. absent: Hemoptysis - Gastrointestinal Gastrointestinal: absent: Abdominal Pain, Constipation, Dysphagia, Nausea, Vomiting - Musculoskeletal Musculoskeletal: Arthralgias, Limited Range of Motion, Myalgias - Neurological Neurological: absent: Dizziness, Paresthesias - Psychiatric Psychiatric: absent: Change in Appetite, Depression, Mood Swings Past Patient History - Past Social History Smoking Status: Never Smoked - CARDIAC Hx Hypertension: Yes Hx Pacemaker: Yes - PULMONARY Hx Lung Cancer: No Hx Pulmonary Embolism: No - RENAL Hx Dialysis: Yes (M-W-F) - ENDOCRINE/METABOLIC Hx Diabetes Mellitus Type 2: Yes - HEMATOLOGICAL/ONCOLOGICAL Hx Cancer: Yes (colon) - MUSCULOSKELETAL/RHEUMATOLOGICAL Hx Falls: No - PSYCHIATRIC Hx Substance Use: No - SURGICAL HISTORY Hx Open Heart Surgery: Yes Other/Comment: Pacemaker/defib, colon removal(1 F) - ANESTHESIA Hx Anesthesia: Yes Hx Anesthesia Reactions: No Hx Malignant Hyperthermia: No Meds Allergies/Adverse Reactions: Allergies Allergy/AdvReac Type Severity Reaction Status Date / Time No Known Allergies Allergy Verified 04/28/17 12:13 Physical Exam - Constitutional Appears: In Acute Distress - Head Exam Head Exam: ATRAUMATIC, NORMAL INSPECTION, NORMOCEPHALIC - Eye Exam Eye Exam: Normal 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 absent: Tenderness Additional comments: obese - Extremities Exam Extremities exam: Positive for: full ROM. Negative for: pedal edema, pedal pulses present Additional comments: b\l leg scars right arm- bruise left arm bruit\A-F fistula - Back Exam Back exam: absent: paraspinal tenderness, vertebral tenderness - Neurological Exam Neurological exam: Alert, Normal Gait, Oriented x3 - Psychiatric Exam Psychiatric exam: Normal Mood - Skin Skin Exam: Intact, Petechiae - Additional Findings Additional findings: PM om chest wall Results - Vital Signs Recent Vital Signs: Last Vital Signs Temp 97.8 F 04/29/17 12:00 Pulse 76 04/29/17 18:00 Resp 21 04/29/17 12:00 BP 96/60 L 04/29/17 20:44 Pulse Ox 99 04/29/17 06:00 - Labs Result Diagrams: 05/01/17 09:18 05/01/17 09:18 Labs: Laboratory Results - last 24 hr 04/29/17 04/29/17 04/29/17 07:37 11:32 15:15 WBC 11.8 H D RBC 3.49 L Hgb 10.4 L Hct 31.1 L MCV 89.1 MCH 29.8 MCHC 33.4 RDW 13.8 Plt Count 160 MPV 9.3 Neutrophils % (Manual) 95 H Lymphocytes % (Manual) 3 L Monocytes % (Manual) 2 Platelet Evaluation Normal Anisocytosis (manual) Slight Sodium Potassium Chloride Carbon Dioxide Anion Gap BUN Creatinine Est GFR ( Amer) Est GFR (Non-Af Amer) POC Glucose (mg/dL) 166 H 166 H Random Glucose Calcium Phosphorus Magnesium Total Bilirubin AST ALT Alkaline Phosphatase Total Protein Albumin Globulin Albumin/Globulin Ratio 04/29/17 04/29/17 04/29/17 15:15 20:24 21:22 WBC RBC Hgb Hct MCV MCH MCHC RDW Plt Count MPV Neutrophils % (Manual) Lymphocytes % (Manual) Monocytes % (Manual) Platelet Evaluation Anisocytosis (manual) Sodium 128 L Potassium 6.5 H* Chloride 91 L Carbon Dioxide 19 L Anion Gap 25 H BUN 73 H Creatinine 10.6 H* Est GFR ( Amer) 6 Est GFR (Non-Af Amer) 5 POC Glucose (mg/dL) 173 H 242 H Random Glucose 118 H Calcium 10.1 Phosphorus 7.0 H Magnesium 2.2 Total Bilirubin 1.2 AST 36 ALT 29 Alkaline Phosphatase 86 Total Protein 6.8 Albumin 4.1 Globulin 2.7 Albumin/Globulin Ratio 1.5 - EKG Data EKG Interpreted by: Myself - Imaging and Cardiology Chest x-ray Status: Report reviewed by me CT scan - chest Status: Report reviewed by me Assessment & Plan (1) Stridor Status: Acute Priority: High Comment: iv steroids. nebs. monitor closely. (2) Asthmatic bronchitis Status: Acute Comment: iv solumedrol. o2 NC 2lit. nebs RTC (3) Bronchiectasis Status: Chronic Comment: WILL START ON ABX (4) A-fib Status: Chronic Comment: continue meds (5) HTN (hypertension) Status: Chronic Comment: continue meds (6) MARCELLO (obstructive sleep apnea) Status: Acute Comment: likley MARCELLO due to body nabiyus,benifit from BIPAP. pulmnology consult. Decision To Admit - Pt Status Changed To: Hospital Disposition Of: Inpatient Admission - Admit Certification Admit to Inpatient:: After my assessment, the patient will require hospitalization for at least two midnights. This is because of the severity of symptoms shown, intensity of services needed, and/or the medical risk in this patient being treated as an outpatient. - . Bed Request Type: Telemetry Admitting Physician: Arlin Lauren
[2017-04-30] MEDS: Albuterol-Ipratrop 3 mg / 0.5 (3 ml) UD IH SCH ×4 (02:40→20:23)
[2017-04-30] MEDS: Arformoterol 15 mcg/2 ml Inh Sol IH SCH ×2 (07:53→20:22)
[2017-04-30] MEDS: Budesonide 0.5 mg/2 ml Inhal Susp UD IH SCH ×2 (07:53→20:22)
[2017-04-30] MEDS: Insulin Reg-LOW-Coverage SC SCH ×4 (07:57→22:08)
--- NOTE | 2017-04-30 09:28 | CP.PCM.PN ---
Subjective - Date & Time of Evaluation Date of Evaluation: 04/30/17 Time of Evaluation: 08:15 - Subjective Subjective: Still with cough, wheezing Objective - Vital Signs/Intake and Output Vital Signs (last 24 hours): Temp Pulse Resp BP Pulse Ox 97.8 F 100 H 18 162/90 H 98 04/30/17 05:47 04/30/17 05:47 04/30/17 05:47 04/30/17 05:47 04/30/17 05:47 Intake and Output: 04/30/17 04/30/17 06:59 18:59 Intake Total 780 Output Total 0 Balance 780 - Medications Medications: Current Medications Acetylcysteine (Acetylcysteine 20%) 3 ml INH BID [facility] Albuterol/Ipratropium (Duoneb 3 Mg/0.5 Mg (3 Ml) Ud) 3 ml IH [id number] [facility] Last Admin: 04/30/17 07:53 Dose: 3 ml Amiodarone HCl (Cordarone) 200 mg PO BID [facility] Last Admin: 04/29/17 20:37 Dose: Not Given Apixaban (Eliquis) 2.5 mg PO BID [facility] PRN Reason: Protocol Last Admin: 04/29/17 20:38 Dose: 2.5 mg Arformoterol Tartrate (Brovana) 15 mcg IH [id number] [facility] Last Admin: 04/30/17 07:53 Dose: 15 mcg Aspirin (Ecotrin) 81 mg PO DAILY [facility] Last Admin: 04/29/17 11:15 Dose: 81 mg Azithromycin (Zithromax) 250 mg PO DAILY [facility] PRN Reason: Protocol Last Admin: 04/29/17 11:15 Dose: 250 mg Budesonide (Pulmicort Respules) 0.5 mg IH [id number] [facility] Last Admin: 04/30/17 07:53 Dose: 0.5 mg Cinacalcet (Sensipar) 90 mg PO BID [facility] Last Admin: 04/29/17 20:43 Dose: 90 mg Clindamycin HCl (Cleocin) 600 mg PO Q8 [facility] PRN Reason: Protocol Last Admin: 04/30/17 05:26 Dose: 600 mg Guaifenesin/Dextromethorphan (Robitussin Dm) 7.5 ml PO QID PRN PRN Reason: Cough Last Admin: 04/29/17 20:43 Dose: 7.5 ml Insulin Human Regular (Humulin R Low) 0 units SC ACHS [facility] PRN Reason: Protocol Last Admin: 04/30/17 07:57 Dose: 2 units Insulin Lispro Protam/Lispro Human (Humalog Mix 75/25) 10 units SC TID [facility] Last Admin: 04/29/17 20:39 Dose: Not Given Lisinopril (Zestril) 20 mg PO DAILY [facility] Last Admin: 04/29/17 20:44 Dose: 20 mg Methylprednisolone (Solu-Medrol) 60 mg IVP BID [facility] Last Admin: 04/29/17 21:26 Dose: 60 mg Metoprolol Succinate (Toprol Xl) 50 mg PO DAILY [facility] Last Admin: 04/29/17 20:43 Dose: Not Given Sevelamer HCl (Renagel) 4,000 mg PO WM [facility] Last Admin: 04/30/17 07:58 Dose: 4,000 mg Zolpidem Tartrate (Ambien) 5 mg PO HS PRN; Protocol PRN Reason: Insomnia Last Admin: 04/30/17 00:56 Dose: 5 mg - Labs Labs: 04/29/17 15:15 04/29/17 15:15 PT 10.6 Seconds (9.9-11.8) 04/28/17 12:15 INR 0.98 (0.93-1.08) 04/28/17 12:15 APTT 27.2 Seconds (23.7-30.8) 04/28/17 12:15 - Constitutional Appears: In Acute Distress, Older Than Stated Age - Head Exam Head Exam: NORMAL INSPECTION, NORMOCEPHALIC - Eye Exam Pupil Exam: Unequal Additional comments: corneal opacity R eye - ENT Exam ENT Exam: Mucous Membranes Moist - Respiratory Exam Respiratory Exam: Rhonchi, Wheezes, Respiratory Distress - Cardiovascular Exam Cardiovascular Exam: REGULAR RHYTHM, +S1, +S2 - GI/Abdominal Exam GI & Abdominal Exam: Distended, Soft, Normal Bowel Sounds - Extremities Exam Additional comments: deformed feet - Neurological Exam Neurological Exam: Alert, Awake Assessment and Plan - Assessment and Plan (Free Text) Assessment: 66 yr old male with NIDDM, HTN, CAD,CABG, ESRD admitted with cough, SOB, wheezing Acute Bronchitis vs cardiac asthma Hyperkalemia, K 6.5 pre HD 04/29 NIDDM HTN ESRD Respiratory treatments s/p HD 04/29 Stat BMP, Phos May need HD again Con't FS and Insulin coverage Empiric Abx Renal diet
[2017-04-30] MEDS ORDERED: Acetylcysteine 20% Inhal Soln (4ml) INH SCH (10:00)
[2017-04-30] MEDS: Insulin Lispro (humaLOG) MIX 75/25(10 ml) SC SCH ×3 (10:00→17:56)
[2017-04-30] MEDS: Metoprolol Succinate 50 mg XL Tab PO SCH (10:33)
[2017-04-30] MEDS: guaiFENesin DM 100 mg-10 mg/5 ml UD PO PRN (10:34)
[2017-04-30 13:25] LABS: GRAN # 7.98 (1.4-6.5); GRAN % 89.4 % (50.0-68.0); HEMOGLOBIN 10.2 gm/dL (14.0-18.0); LYMPH # 0.6 (1.2-3.4); LYMPH % 6.6 % (22.0-35.0); MEAN CELL VOLUME 91.5 fL (80.0-105.0); MEAN CORPUSCULAR HEMOGLOBIN 29.8 pg (25.0-35.0); MEAN CORPUSCULAR HGB CONC 32.6 g/dl (31.0-37.0); MEAN PLATELET VOLUME 9.8 fl (7.0-11.0); MONO # 0.4 (0.1-0.6); PLATELET COUNT 172 10^3/uL (120.0-450.0); RBC 3.42 10^6/uL (3.5-6.1); RED CELL DISTRIBUTION WIDTH 14.1 % (11.5-14.5); WHITE BLOOD COUNT 8.9 10^3/ul (4.5-11.0)
[2017-04-30] MEDS ORDERED: levoFLOXacin 500 MG TAB PO SCH (13:58)
[2017-04-30] MEDS ORDERED: levoFLOXacin 500 mg in D5W 500 MG/100 ML BAG IVPB SCH (20:00)
[2017-04-30] MEDS: Acetylcysteine 20% Inhal Soln (4ml) INH SCH (20:23)
--- NOTE | 2017-04-30 21:53 | CP.PCM.PN ---
Subjective - Date & Time of Evaluation Date of Evaluation: 04/30/17 Time of Evaluation: 16:00 - Subjective Subjective: his 66 year old male was admitted with sob and wheezing of one month duration. H/O of HTN, ESRD dialysis dependent,anemia, DM, colon cancer, CABG, pacemaker insertion morbid obesity,He is started on antibiotics, steroids and inhale bronchodilators, admite to have load snoring and daytime sleepiness. at bed side, will be started on B PAP tonight, feels little better, with decrease cough and SOB Objective - Vital Signs/Intake and Output Vital Signs (last 24 hours): Temp Pulse Resp BP Pulse Ox 97.4 F L 69 20 173/95 H 98 04/30/17 18:00 04/30/17 18:00 04/30/17 18:00 04/30/17 18:00 04/30/17 05:47 - Medications Medications: Current Medications Acetylcysteine (Acetylcysteine 20%) 3 ml INH 0800,1999 [facility] Last Admin: 04/30/17 20:23 Dose: 3 ml Albuterol/Ipratropium (Duoneb 3 Mg/0.5 Mg (3 Ml) Ud) 3 ml IH [id number] [facility] Last Admin: 04/30/17 20:23 Dose: 3 ml Amiodarone HCl (Cordarone) 200 mg PO BID [facility] Last Admin: 04/30/17 17:55 Dose: 200 mg Apixaban (Eliquis) 2.5 mg PO BID [facility] PRN Reason: Protocol Last Admin: 04/30/17 17:55 Dose: 2.5 mg Arformoterol Tartrate (Brovana) 15 mcg IH [id number] [facility] Last Admin: 04/30/17 20:22 Dose: 15 mcg Aspirin (Ecotrin) 81 mg PO DAILY [facility] Last Admin: 04/30/17 10:31 Dose: 81 mg Azithromycin (Zithromax) 250 mg PO DAILY [facility] PRN Reason: Protocol Last Admin: 04/30/17 10:34 Dose: 250 mg Budesonide (Pulmicort Respules) 0.5 mg IH [id number] [facility] Last Admin: 04/30/17 20:22 Dose: 0.5 mg Cinacalcet (Sensipar) 90 mg PO BID [facility] Last Admin: 04/30/17 17:57 Dose: 90 mg Clindamycin HCl (Cleocin) 600 mg PO Q8 [facility] PRN Reason: Protocol Last Admin: 04/30/17 17:54 Dose: 600 mg Guaifenesin/Dextromethorphan (Robitussin Dm) 7.5 ml PO QID PRN PRN Reason: Cough Last Admin: 04/30/17 10:34 Dose: 7.5 ml Insulin Human Regular (Humulin R Low) 0 units SC ACHS [facility] PRN Reason: Protocol Last Admin: 04/30/17 17:00 Dose: 2 units Insulin Lispro Protam/Lispro Human (Humalog Mix 75/25) 10 units SC TID [facility] Last Admin: 04/30/17 17:56 Dose: 10 u Lisinopril (Zestril) 20 mg PO DAILY [facility] Last Admin: 04/30/17 10:33 Dose: 20 mg Methylprednisolone (Solu-Medrol) 60 mg IVP BID [facility] Last Admin: 04/30/17 17:58 Dose: 60 mg Metoprolol Succinate (Toprol Xl) 50 mg PO DAILY [facility] Last Admin: 04/30/17 10:33 Dose: 50 mg Sevelamer HCl (Renagel) 4,000 mg PO WM [facility] Last Admin: 04/30/17 17:01 Dose: 4,000 mg Zolpidem Tartrate (Ambien) 5 mg PO HS PRN; Protocol PRN Reason: Insomnia Last Admin: 04/30/17 00:56 Dose: 5 mg - Labs Labs: PT 10.6 Seconds (9.9-11.8) 04/28/17 12:15 INR 0.98 (0.93-1.08) 04/28/17 12:15 APTT 27.2 Seconds (23.7-30.8) 04/28/17 12:15 - Constitutional Appears: Chronically Ill - Head Exam Head Exam: ATRAUMATIC, NORMAL INSPECTION, NORMOCEPHALIC - ENT Exam Additional comments: crouded air way - Neck Exam Additional comments: short thick neck - Respiratory Exam Respiratory Exam: Rhonchi, Wheezes - Cardiovascular Exam Cardiovascular Exam: REGULAR RHYTHM, +S1, +S2. absent: Murmur - GI/Abdominal Exam GI & Abdominal Exam: Soft, Normal Bowel Sounds. absent: Tenderness - Extremities Exam Extremities Exam: Full ROM, Normal Capillary Refill, Normal Inspection. absent : Joint Swelling, Pedal Edema - Neurological Exam Neurological Exam: Alert, Awake, CN II-XII Intact, Normal Gait, Oriented x3 - Psychiatric Exam Psychiatric exam: Flat Affect Assessment and Plan (1) MARCELLO (obstructive sleep apnea) Assessment & Plan: will be started on B PAP tonight, sleep apnea precaution, avoid sedation, out patient sleep study Status: Acute (2) Cardiomyopathy Assessment & Plan: cardiology follow up Status: Acute (3) Obesity (BMI 30.0-34.9) Assessment & Plan: diet modification and weight loss program Status: Acute (4) HTN (hypertension) Assessment & Plan: continue vasodilators Status: Acute - Assessment and Plan (Free Text) Assessment: spoke to patient and at bed side, educated about sleep apnea and it,s consequences, will use B PAP tonight, aspiration precaution, bronchodilators
--- NOTE | 2017-04-30 22:23 | CP.PCM.PN ---
Subjective - Date & Time of Evaluation Date of Evaluation: 04/30/17 Time of Evaluation: 20:00 - Subjective Subjective: feeling better, BIPAP for trial to night . able to breath better. at bed side HD in am labs reviewed. no new issues. last night events noted, pacing Objective - Vital Signs/Intake and Output Vital Signs (last 24 hours): Temp Pulse Resp BP Pulse Ox 97.4 F L 69 20 173/95 H 98 04/30/17 18:00 04/30/17 18:00 04/30/17 18:00 04/30/17 18:00 04/30/17 05:47 - Medications Medications: Current Medications Acetylcysteine (Acetylcysteine 20%) 3 ml INH 0800,1999 [facility] Last Admin: 04/30/17 20:23 Dose: 3 ml Albuterol/Ipratropium (Duoneb 3 Mg/0.5 Mg (3 Ml) Ud) 3 ml IH [id number] [facility] Last Admin: 04/30/17 20:23 Dose: 3 ml Amiodarone HCl (Cordarone) 200 mg PO BID [facility] Last Admin: 04/30/17 17:55 Dose: 200 mg Apixaban (Eliquis) 2.5 mg PO BID [facility] PRN Reason: Protocol Last Admin: 04/30/17 17:55 Dose: 2.5 mg Arformoterol Tartrate (Brovana) 15 mcg IH [id number] [facility] Last Admin: 04/30/17 20:22 Dose: 15 mcg Aspirin (Ecotrin) 81 mg PO DAILY [facility] Last Admin: 04/30/17 10:31 Dose: 81 mg Azithromycin (Zithromax) 250 mg PO DAILY [facility] PRN Reason: Protocol Last Admin: 04/30/17 10:34 Dose: 250 mg Budesonide (Pulmicort Respules) 0.5 mg IH [id number] [facility] Last Admin: 04/30/17 20:22 Dose: 0.5 mg Cinacalcet (Sensipar) 90 mg PO BID [facility] Last Admin: 04/30/17 17:57 Dose: 90 mg Clindamycin HCl (Cleocin) 600 mg PO Q8 [facility] PRN Reason: Protocol Last Admin: 04/30/17 21:50 Dose: 600 mg Guaifenesin/Dextromethorphan (Robitussin Dm) 7.5 ml PO QID PRN PRN Reason: Cough Last Admin: 04/30/17 10:34 Dose: 7.5 ml Insulin Human Regular (Humulin R Low) 0 units SC ACHS [facility] PRN Reason: Protocol Last Admin: 04/30/17 17:00 Dose: 2 units Insulin Lispro Protam/Lispro Human (Humalog Mix 75/25) 10 units SC TID [facility] Last Admin: 04/30/17 17:56 Dose: 10 u Lisinopril (Zestril) 20 mg PO DAILY [facility] Last Admin: 04/30/17 10:33 Dose: 20 mg Methylprednisolone (Solu-Medrol) 60 mg IVP BID [facility] Last Admin: 04/30/17 17:58 Dose: 60 mg Metoprolol Succinate (Toprol Xl) 50 mg PO DAILY [facility] Last Admin: 04/30/17 10:33 Dose: 50 mg Sevelamer HCl (Renagel) 4,000 mg PO WM [facility] Last Admin: 04/30/17 17:01 Dose: 4,000 mg Zolpidem Tartrate (Ambien) 5 mg PO HS PRN; Protocol PRN Reason: Insomnia Last Admin: 04/30/17 21:50 Dose: 5 mg - Labs Labs: PT 10.6 Seconds (9.9-11.8) 04/28/17 12:15 INR 0.98 (0.93-1.08) 04/28/17 12:15 APTT 27.2 Seconds (23.7-30.8) 04/28/17 12:15 - Constitutional Appears: No Acute Distress, Chronically Ill - Additional Findings Additional findings: - Head Exam Head Exam: ATRAUMATIC, NORMAL INSPECTION, NORMOCEPHALIC - Eye Exam Eye Exam: 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 absent: Tenderness Additional comments: obese - Extremities Exam Extremities exam: Positive for: full ROM. Negative for: pedal edema, pedal pulses present Additional comments: b\l leg scars right arm- bruise left arm bruit\A-F fistula - Back Exam Back exam: absent: paraspinal tenderness, vertebral tenderness - Neurological Exam Neurological exam: Alert, Normal Gait, Oriented x3 - Psychiatric Exam Psychiatric exam: Normal Mood - Skin Skin Exam: Intact, Petechiae - Additional Findings Additional findings: PM om chest wall Assessment and Plan (1) Asthmatic bronchitis Assessment & Plan: 1. continue meds will decrease solumedrol Status: Acute (2) MARCELLO (obstructive sleep apnea) Assessment & Plan: assessed by pulmnology- BIPAP at bed side Status: Acute (3) Stridor Status: Resolved (4) A-fib Assessment & Plan: for PM interrogation called cardiology Status: Chronic (5) HTN (hypertension) Status: Chronic
--- NOTE | 2017-04-30 22:51 | CP.PCM.PN ---
Subjective - Date & Time of Evaluation Date of Evaluation: 04/30/17 Time of Evaluation: 22:51 - Subjective Subjective: S: patient was seen at bedside. He requested more Ambien.He already had received Ambien 5 mg . States that he takes Ambien 10 mg at home. Has no other complaints now. Denies chest pain, sob. O: Last Vital Signs 3 Temp 98.4 F 05/01/17 00:01 Pulse 98 H 05/01/17 00:30 Resp 20 05/01/17 00:01 BP 163/77 H 05/01/17 00:01 Pulse Ox 98 05/01/17 00:01 Awake, alert, not in distress. LUNGS:Normal breathing pattern. NEURO: Speech normal. A: Adjustment insomnia. P:Ambien 5 mg PO now. Objective - Vital Signs/Intake and Output Vital Signs (last 24 hours): Temp Pulse Resp BP Pulse Ox 97.4 F L 69 20 173/95 H 98 04/30/17 18:00 04/30/17 18:00 04/30/17 18:00 04/30/17 18:00 04/30/17 05:47 - Medications Medications: Current Medications Acetylcysteine (Acetylcysteine 20%) 3 ml INH 0800,1999 [facility] Last Admin: 04/30/17 20:23 Dose: 3 ml Albuterol/Ipratropium (Duoneb 3 Mg/0.5 Mg (3 Ml) Ud) 3 ml IH [id number] [facility] Last Admin: 04/30/17 20:23 Dose: 3 ml Amiodarone HCl (Cordarone) 200 mg PO BID [facility] Last Admin: 04/30/17 17:55 Dose: 200 mg Apixaban (Eliquis) 2.5 mg PO BID [facility] PRN Reason: Protocol Last Admin: 04/30/17 17:55 Dose: 2.5 mg Arformoterol Tartrate (Brovana) 15 mcg IH [id number] [facility] Last Admin: 04/30/17 20:22 Dose: 15 mcg Aspirin (Ecotrin) 81 mg PO DAILY [facility] Last Admin: 04/30/17 10:31 Dose: 81 mg Azithromycin (Zithromax) 250 mg PO DAILY [facility] PRN Reason: Protocol Last Admin: 04/30/17 10:34 Dose: 250 mg Budesonide (Pulmicort Respules) 0.5 mg IH [id number] [facility] Last Admin: 04/30/17 20:22 Dose: 0.5 mg Cinacalcet (Sensipar) 90 mg PO BID [facility] Last Admin: 04/30/17 17:57 Dose: 90 mg Clindamycin HCl (Cleocin) 600 mg PO Q8 [facility] PRN Reason: Protocol Last Admin: 04/30/17 21:50 Dose: 600 mg Guaifenesin/Dextromethorphan (Robitussin Dm) 7.5 ml PO QID PRN PRN Reason: Cough Last Admin: 04/30/17 10:34 Dose: 7.5 ml Insulin Human Regular (Humulin R Low) 0 units SC ACHS [facility] PRN Reason: Protocol Last Admin: 04/30/17 17:00 Dose: 2 units Insulin Lispro Protam/Lispro Human (Humalog Mix 75/25) 10 units SC TID [facility] Last Admin: 04/30/17 17:56 Dose: 10 u Lisinopril (Zestril) 20 mg PO DAILY [facility] Last Admin: 04/30/17 10:33 Dose: 20 mg Methylprednisolone (Solu-Medrol) 60 mg IVP BID [facility] Last Admin: 04/30/17 17:58 Dose: 60 mg Metoprolol Succinate (Toprol Xl) 50 mg PO DAILY [facility] Last Admin: 04/30/17 10:33 Dose: 50 mg Sevelamer HCl (Renagel) 4,000 mg PO WM [facility] Last Admin: 04/30/17 17:01 Dose: 4,000 mg Zolpidem Tartrate (Ambien) 5 mg PO HS PRN; Protocol PRN Reason: Insomnia Last Admin: 04/30/17 21:50 Dose: 5 mg - Labs Labs: PT 10.6 Seconds (9.9-11.8) 04/28/17 12:15 INR 0.98 (0.93-1.08) 04/28/17 12:15 APTT 27.2 Seconds (23.7-30.8) 04/28/17 12:15
[2017-05-01] MEDS: Albuterol-Ipratrop 3 mg / 0.5 (3 ml) UD IH SCH ×5 (01:33→19:28)
[2017-05-01] MEDS: Metoprolol Succinate 50 mg XL Tab PO SCH ×2 (05:29→10:43)
[2017-05-01] MEDS: Acetylcysteine 20% Inhal Soln (4ml) INH SCH ×2 (08:00→19:28)
[2017-05-01] MEDS: Budesonide 0.5 mg/2 ml Inhal Susp UD IH SCH ×2 (08:01→19:28)
[2017-05-01] MEDS: Arformoterol 15 mcg/2 ml Inh Sol IH SCH ×2 (08:01→19:28)
[2017-05-01] MEDS: Insulin Reg-LOW-Coverage SC SCH ×4 (08:19→22:21)
[2017-05-01 09:44] LABS: HEMOGLOBIN 10.4 gm/dL (14.0-18.0); MEAN CELL VOLUME 88.7 fL (80.0-105.0); MEAN CORPUSCULAR HEMOGLOBIN 30.1 pg (25.0-35.0); MEAN PLATELET VOLUME 9.7 fl (7.0-11.0); RBC 3.45 10^6/uL (3.5-6.1); RED CELL DISTRIBUTION WIDTH 14.1 % (11.5-14.5)
[2017-05-01 09:53] LABS: ALB/GLOB RATIO 1.4 (1.1-1.8); ALBUMIN 3.8 g/dL (3.0-4.8); CALCIUM 10.3 mg/dL (8.4-10.5); MAGNESIUM 2.2 mg/dL (1.7-2.2)
[2017-05-01] MEDS: Insulin Lispro (humaLOG) MIX 75/25(10 ml) SC SCH ×3 (10:43→17:29)
--- NOTE | 2017-05-01 11:12 | CP.PCM.CON ---
History of Present Illness - History of Present Illness History of Present Illness: 66 year old male, with a history of ESRD on dialysis for the past 18 years MWF, hypertension, Colon CA S/P partial colectomy 2002, diabetes and CABG 2002 at [facility] with ICD palcement at that time H/O Cardiac arrest in 09/2015 in [place] with discharge of ICD, underwent Cath at that time a required no intervention presents to the emergency department complaining of 1 month duration of shortness of breath and wheezing. Patient is also complaining of productive cough. He reports he was evaluated by PMD for similar symptoms by PMD and was started on antibiotics for bronchitis. His symptoms are now worse over the past few days. Reports of minimal symptomatic relief following medication. Denies any fever, chills, headache, chest pain, abdominal pain, nausea, vomiting , diarrhea, or Past Patient History - Past Social History Smoking Status: Never Smoked - CARDIAC Hx Cardiac Disorders: Yes Hx Hypertension: Yes - PULMONARY Hx Lung Cancer: No Hx Pulmonary Embolism: No - RENAL Hx Renal Failure: Yes (HD MWF) - ENDOCRINE/METABOLIC Hx Diabetes Mellitus Type 2: Yes - HEMATOLOGICAL/ONCOLOGICAL Hx Cancer: Yes (colon) - MUSCULOSKELETAL/RHEUMATOLOGICAL Hx Falls: No - GASTROINTESTINAL Hx Gastroesophageal Reflux: Yes - PSYCHIATRIC Hx Substance Use: No - SURGICAL HISTORY Hx Open Heart Surgery: Yes Other/Comment: Pacemaker/defib, colon removal(1 F) - ANESTHESIA Hx Anesthesia: Yes Hx Anesthesia Reactions: No Hx Malignant Hyperthermia: No Meds Allergies/Adverse Reactions: Allergies Allergy/AdvReac Type Severity Reaction Status Date / Time No Known Allergies Allergy Verified 04/28/17 12:13 - Medications Medications: Current Medications Acetylcysteine (Acetylcysteine 20%) 3 ml INH 0800,2000 [facility] Last Admin: 05/01/17 08:00 Dose: 3 ml Albuterol/Ipratropium (Duoneb 3 Mg/0.5 Mg (3 Ml) Ud) 3 ml IH [id number] [facility] Last Admin: 05/01/17 08:01 Dose: 3 ml Amiodarone HCl (Cordarone) 200 mg PO BID [facility] Last Admin: 05/01/17 10:42 Dose: Not Given Apixaban (Eliquis) 2.5 mg PO BID [facility] PRN Reason: Protocol Last Admin: 05/01/17 10:43 Dose: Not Given Arformoterol Tartrate (Brovana) 15 mcg IH [id number] [facility] Last Admin: 05/01/17 08:01 Dose: 15 mcg Aspirin (Ecotrin) 81 mg PO DAILY [facility] Last Admin: 04/30/17 10:31 Dose: 81 mg Azithromycin (Zithromax) 250 mg PO DAILY [facility] PRN Reason: Protocol Last Admin: 04/30/17 10:34 Dose: 250 mg Budesonide (Pulmicort Respules) 0.5 mg IH [id number] [facility] Last Admin: 05/01/17 08:01 Dose: 0.5 mg Cinacalcet (Sensipar) 90 mg PO BID [facility] Last Admin: 05/01/17 10:43 Dose: Not Given Clindamycin HCl (Cleocin) 600 mg PO Q8 [facility] PRN Reason: Protocol Last Admin: 05/01/17 05:29 Dose: 600 mg Guaifenesin/Dextromethorphan (Robitussin Dm) 7.5 ml PO QID PRN PRN Reason: Cough Last Admin: 04/30/17 10:34 Dose: 7.5 ml Insulin Human Regular (Humulin R Low) 0 units SC ACHS [facility] PRN Reason: Protocol Last Admin: 05/01/17 08:19 Dose: 1 units Insulin Lispro Protam/Lispro Human (Humalog Mix 75/25) 10 units SC TID [facility] Last Admin: 05/01/17 10:43 Dose: Not Given Lisinopril (Zestril) 20 mg PO DAILY [facility] Last Admin: 04/30/17 10:33 Dose: 20 mg Methylprednisolone (Solu-Medrol) 60 mg IVP BID [facility] Last Admin: 05/01/17 10:43 Dose: Not Given Metoprolol Succinate (Toprol Xl) 50 mg PO DAILY [facility] Last Admin: 05/01/17 10:43 Dose: Not Given Sevelamer HCl (Renagel) 4,000 mg PO WM [facility] Last Admin: 05/01/17 08:20 Dose: 4,000 mg Zolpidem Tartrate (Ambien) 5 mg PO HS PRN; Protocol PRN Reason: Insomnia Last Admin: 04/30/17 21:50 Dose: 5 mg Physical Exam - Head Exam Additional comments: Atropic Rt. eye - Respiratory Exam Respiratory Exam: Rhonchi - Cardiovascular Exam Cardiovascular Exam: Irregular Rhythm - GI/Abdominal Exam GI & Abdominal Exam: Normal Bowel Sounds - Extremities Exam Additional comments: Muscle atrophy Results - Vital Signs Recent Vital Signs: Last Vital Signs Temp 97.7 F 05/01/17 06:00 Pulse 77 05/01/17 06:00 Resp 22 05/01/17 06:00 BP 179/97 H 05/01/17 05:29 Pulse Ox 94 L 05/01/17 06:00 - Labs Result Diagrams: 05/01/17 09:18 05/01/17 09:18 Labs: Laboratory Results - last 24 hr 04/30/17 04/30/17 04/30/17 11:15 16:09 21:11 WBC RBC Hgb Hct MCV MCH MCHC RDW Plt Count MPV Sodium Potassium Chloride Carbon Dioxide Anion Gap BUN Creatinine Est GFR ( Amer) Est GFR (Non-Af Amer) POC Glucose (mg/dL) 247 H 238 H 183 H Random Glucose Calcium Phosphorus Magnesium Total Bilirubin AST ALT Alkaline Phosphatase Total Protein Albumin Globulin Albumin/Globulin Ratio 05/01/17 05/01/17 09:18 09:18 WBC 14.0 H D RBC 3.45 L Hgb 10.4 L Hct 30.6 L MCV 88.7 MCH 30.1 MCHC 34.0 RDW 14.1 Plt Count 183 MPV 9.7 Sodium 128 L Potassium 5.9 H* Chloride 93 L Carbon Dioxide 20 L Anion Gap 21 H BUN 79 H Creatinine 8.6 H* Est GFR ( Amer) 8 Est GFR (Non-Af Amer) 6 POC Glucose (mg/dL) Random Glucose 101 Calcium 10.3 Phosphorus 6.2 H Magnesium 2.2 Total Bilirubin 0.8 AST 86 H ALT 55 Alkaline Phosphatase 104 Total Protein 6.5 Albumin 3.8 Globulin 2.7 Albumin/Globulin Ratio 1.4 Assessment & Plan - Assessment and Plan (Free Text) Assessment: CHF Pneumonia A Fib/ Flutter ESRD CAD S/P CABG ICD DM H/O Cardiac arrest in 2014 Colonic CA 2002 Plan: I reviewed EKG, CXR, Chest CT scan and Labs Cont (Duoneb 3 Mg/0.5 Mg (3 Ml) Ud) 3 ml IH [id number] [facility] (Cordarone) 200 mg PO BID [facility] (Eliquis) 2.5 mg PO BID [facility] (Brovana) 15 mcg IH [id number] [facility] (Ecotrin) 81 mg PO DAILY [facility] (Zithromax) 250 mg PO DAILY [facility] (Cleocin) 600 mg PO Q8 [facility] (Robitussin Dm) 7.5 ml PO QID PRN (Zestril) 20 mg PO DAILY [facility] (Solu-Medrol) 60 mg IVP BID [facility] (Toprol Xl) 50 mg PO DAILY [facility] ICD interrogated My review of rhythm strips revealed A Fib/ AFL withe Demand Ventricular pacemaker rhythm
[2017-05-01] MEDS ORDERED: DiphenhydrAMINE 50 mg/ml Inj IVP STA (12:24)
--- NOTE | 2017-05-01 12:59 | CP.PCM.PN ---
Subjective - Date & Time of Evaluation Date of Evaluation: 05/01/17 Time of Evaluation: 11:50 - Subjective Subjective: C/o itching R side of neck, IV line Seen on dialysis 66 yr old male with NIDDM, HTN, CAD,CABG, ESRD admitted with cough, SOB, wheezing Acute Bronchitis vs cardiac asthma Hyperkalemia, K 5.9 pre NIDDM HTN ESRD Respiratory treatments, steroids stable HD K1 bath last hour Con't FS and Insulin coverage Empiric Abx Renal diet Benadryl 25mg IVP X1 Objective - Vital Signs/Intake and Output Vital Signs (last 24 hours): Temp Pulse Resp BP Pulse Ox 97.7 F 76 22 179/97 H 94 L 05/01/17 06:00 05/01/17 10:00 05/01/17 06:00 05/01/17 05:29 05/01/17 06:00 Intake and Output: 05/01/17 05/01/17 06:59 18:59 Intake Total 120 Balance 120 - Medications Medications: Current Medications Acetylcysteine (Acetylcysteine 20%) 3 ml INH 799,1999 [facility] Last Admin: 05/01/17 08:00 Dose: 3 ml Albuterol/Ipratropium (Duoneb 3 Mg/0.5 Mg (3 Ml) Ud) 3 ml IH [id number] [facility] Last Admin: 05/01/17 08:01 Dose: 3 ml Amiodarone HCl (Cordarone) 200 mg PO BID [facility] Last Admin: 05/01/17 10:42 Dose: Not Given Apixaban (Eliquis) 2.5 mg PO BID [facility] PRN Reason: Protocol Last Admin: 05/01/17 10:43 Dose: Not Given Arformoterol Tartrate (Brovana) 15 mcg IH [id number] [facility] Last Admin: 05/01/17 08:01 Dose: 15 mcg Aspirin (Ecotrin) 81 mg PO DAILY [facility] Last Admin: 04/30/17 10:31 Dose: 81 mg Azithromycin (Zithromax) 250 mg PO DAILY [facility] PRN Reason: Protocol Last Admin: 04/30/17 10:34 Dose: 250 mg Budesonide (Pulmicort Respules) 0.5 mg IH [id number] [facility] Last Admin: 05/01/17 08:01 Dose: 0.5 mg Cinacalcet (Sensipar) 90 mg PO BID [facility] Last Admin: 05/01/17 10:43 Dose: Not Given Clindamycin HCl (Cleocin) 600 mg PO Q8 [facility] PRN Reason: Protocol Last Admin: 05/01/17 05:29 Dose: 600 mg Guaifenesin/Dextromethorphan (Robitussin Dm) 7.5 ml PO QID PRN PRN Reason: Cough Last Admin: 04/30/17 10:34 Dose: 7.5 ml Insulin Human Regular (Humulin R Low) 0 units SC ACHS [facility] PRN Reason: Protocol Last Admin: 05/01/17 12:28 Dose: Not Given Insulin Lispro Protam/Lispro Human (Humalog Mix 75/25) 10 units SC TID [facility] Last Admin: 05/01/17 10:43 Dose: Not Given Lisinopril (Zestril) 20 mg PO DAILY [facility] Last Admin: 04/30/17 10:33 Dose: 20 mg Methylprednisolone (Solu-Medrol) 60 mg IVP BID [facility] Last Admin: 05/01/17 10:43 Dose: Not Given Metoprolol Succinate (Toprol Xl) 50 mg PO DAILY [facility] Last Admin: 05/01/17 10:43 Dose: Not Given Sevelamer HCl (Renagel) 4,000 mg PO WM [facility] Last Admin: 05/01/17 08:20 Dose: 4,000 mg Zolpidem Tartrate (Ambien) 5 mg PO HS PRN; Protocol PRN Reason: Insomnia Last Admin: 04/30/17 21:50 Dose: 5 mg - Labs Labs: 05/01/17 09:18 05/01/17 09:18 PT 10.6 Seconds (9.9-11.8) 04/28/17 12:15 INR 0.98 (0.93-1.08) 04/28/17 12:15 APTT 27.2 Seconds (23.7-30.8) 04/28/17 12:15 - Constitutional Appears: Chronically Ill - Head Exam Head Exam: NORMAL INSPECTION - Eye Exam Eye Exam: PERRL - ENT Exam ENT Exam: Mucous Membranes Moist - Respiratory Exam Respiratory Exam: Prolonged Expiratory Phase, Rhonchi, NORMAL BREATHING PATTERN - Cardiovascular Exam Cardiovascular Exam: JVD, +S1, +S2, Murmur - GI/Abdominal Exam GI & Abdominal Exam: Soft, Normal Bowel Sounds - Extremities Exam Extremities Exam: Pedal Edema
[2017-05-01] MEDS ORDERED: MethylPREDNISolone 40 mg Vial IVP SCH (13:30)
--- NOTE | 2017-05-01 13:30 | CP.PCM.PN ---
Subjective - Date & Time of Evaluation Date of Evaluation: 05/01/17 Time of Evaluation: 12:00 - Subjective Subjective: 66 year old male was admitted with sob and wheezing of one month duration. H/O of HTN, ESRD dialysis dependent,anemia, DM, colon cancer, CABG, pacemaker insertion morbid obesity,He is started on antibiotics, steroids and inhale bronchodilators, admite to have load snoring and daytime sleepiness. at bed side, feels little better, with decrease cough and SOB, could not use B PAP last night Objective - Vital Signs/Intake and Output Vital Signs (last 24 hours): Temp Pulse Resp BP Pulse Ox 97.7 F 76 22 179/97 H 94 L 05/01/17 06:00 05/01/17 10:00 05/01/17 06:00 05/01/17 05:29 05/01/17 06:00 Intake and Output: 05/01/17 05/01/17 06:59 18:59 Intake Total 120 Balance 120 - Medications Medications: Current Medications Acetylcysteine (Acetylcysteine 20%) 3 ml INH 799,1999 [facility] Last Admin: 05/01/17 08:00 Dose: 3 ml Albuterol/Ipratropium (Duoneb 3 Mg/0.5 Mg (3 Ml) Ud) 3 ml IH [id number] [facility] Last Admin: 05/01/17 08:01 Dose: 3 ml Amiodarone HCl (Cordarone) 200 mg PO BID [facility] Last Admin: 05/01/17 10:42 Dose: Not Given Apixaban (Eliquis) 2.5 mg PO BID [facility] PRN Reason: Protocol Last Admin: 05/01/17 10:43 Dose: Not Given Arformoterol Tartrate (Brovana) 15 mcg IH [id number] [facility] Last Admin: 05/01/17 08:01 Dose: 15 mcg Aspirin (Ecotrin) 81 mg PO DAILY [facility] Last Admin: 04/30/17 10:31 Dose: 81 mg Azithromycin (Zithromax) 250 mg PO DAILY [facility] PRN Reason: Protocol Last Admin: 04/30/17 10:34 Dose: 250 mg Budesonide (Pulmicort Respules) 0.5 mg IH [id number] [facility] Last Admin: 05/01/17 08:01 Dose: 0.5 mg Cinacalcet (Sensipar) 90 mg PO BID [facility] Last Admin: 05/01/17 10:43 Dose: Not Given Clindamycin HCl (Cleocin) 600 mg PO Q8 [facility] PRN Reason: Protocol Last Admin: 05/01/17 05:29 Dose: 600 mg Guaifenesin/Dextromethorphan (Robitussin Dm) 7.5 ml PO QID PRN PRN Reason: Cough Last Admin: 04/30/17 10:34 Dose: 7.5 ml Insulin Human Regular (Humulin R Low) 0 units SC ACHS [facility] PRN Reason: Protocol Last Admin: 05/01/17 12:28 Dose: Not Given Insulin Lispro Protam/Lispro Human (Humalog Mix 75/25) 10 units SC TID [facility] Last Admin: 05/01/17 10:43 Dose: Not Given Lisinopril (Zestril) 20 mg PO DAILY [facility] Last Admin: 04/30/17 10:33 Dose: 20 mg Methylprednisolone (Solu-Medrol) 60 mg IVP BID [facility] Last Admin: 05/01/17 10:43 Dose: Not Given Metoprolol Succinate (Toprol Xl) 50 mg PO DAILY [facility] Last Admin: 05/01/17 10:43 Dose: Not Given Sevelamer HCl (Renagel) 4,000 mg PO WM [facility] Last Admin: 05/01/17 08:20 Dose: 4,000 mg Zolpidem Tartrate (Ambien) 5 mg PO HS PRN; Protocol PRN Reason: Insomnia Last Admin: 04/30/17 21:50 Dose: 5 mg - Labs Labs: 05/01/17 09:18 05/01/17 09:18 PT 10.6 Seconds (9.9-11.8) 04/28/17 12:15 INR 0.98 (0.93-1.08) 04/28/17 12:15 APTT 27.2 Seconds (23.7-30.8) 04/28/17 12:15 - Constitutional Appears: No Acute Distress - Head Exam Head Exam: ATRAUMATIC, NORMAL INSPECTION, NORMOCEPHALIC - Neck Exam Additional comments: short thick - Respiratory Exam Respiratory Exam: Accessory Muscle Use, Rhonchi, Wheezes - Cardiovascular Exam Cardiovascular Exam: REGULAR RHYTHM, +S1, +S2. absent: Murmur - GI/Abdominal Exam GI & Abdominal Exam: Soft, Normal Bowel Sounds. absent: Tenderness - Extremities Exam Extremities Exam: Full ROM, Normal Capillary Refill, Normal Inspection. absent : Joint Swelling, Pedal Edema - Neurological Exam Neurological Exam: Alert, Awake, CN II-XII Intact, Normal Gait, Oriented x3 - Psychiatric Exam Psychiatric exam: Anxious - Skin Skin Exam: Dry, Intact, Normal Color, Warm Assessment and Plan (1) MARCELLO (obstructive sleep apnea) Assessment & Plan: spoke to patient and encourage to use B PAP tonight, sleep apnea precaution , Status: Acute (2) Cardiomyopathy Assessment & Plan: on amio and anticoagulation Status: Acute (3) Obesity (BMI 30.0-34.9) Assessment & Plan: diet modification Status: Acute (4) HTN (hypertension) Assessment & Plan: continue vasodilators Status: Acute (5) Asthmatic bronchitis Assessment & Plan: iv and inhale bronchodilators Status: Acute
--- NOTE | 2017-05-02 00:22 | CP.PCM.PN ---
Subjective - Date & Time of Evaluation Date of Evaluation: 05/01/17 Time of Evaluation: 10:00 - Subjective Subjective: improving. tolerated BIPAP. labs-reviewed breathing improved feels tired ,for rehab evaluation. Objective - Vital Signs/Intake and Output Vital Signs (last 24 hours): Temp Pulse Resp BP Pulse Ox 97.8 F 78 20 144/74 94 L 05/01/17 18:00 05/01/17 18:16 05/01/17 18:00 05/01/17 18:16 05/01/17 15:00 - Medications Medications: Current Medications Acetylcysteine (Acetylcysteine 20%) 3 ml INH 0800,2000 [facility] Last Admin: 05/01/17 19:28 Dose: 3 ml Albuterol/Ipratropium (Duoneb 3 Mg/0.5 Mg (3 Ml) Ud) 3 ml IH [id number] [facility] Last Admin: 05/01/17 19:28 Dose: 3 ml Amiodarone HCl (Cordarone) 200 mg PO BID [facility] Last Admin: 05/01/17 18:16 Dose: 200 mg Apixaban (Eliquis) 2.5 mg PO BID [facility] PRN Reason: Protocol Last Admin: 05/01/17 18:16 Dose: 2.5 mg Arformoterol Tartrate (Brovana) 15 mcg IH [id number] [facility] Last Admin: 05/01/17 19:28 Dose: 15 mcg Aspirin (Ecotrin) 81 mg PO DAILY [facility] Last Admin: 05/01/17 14:33 Dose: 81 mg Azithromycin (Zithromax) 250 mg PO DAILY [facility] PRN Reason: Protocol Last Admin: 05/01/17 14:35 Dose: 250 mg Budesonide (Pulmicort Respules) 0.5 mg IH [id number] [facility] Last Admin: 05/01/17 19:28 Dose: 0.5 mg Cinacalcet (Sensipar) 90 mg PO BID [facility] Last Admin: 05/01/17 18:16 Dose: 90 mg Clindamycin HCl (Cleocin) 600 mg PO Q8 [facility] PRN Reason: Protocol Last Admin: 05/01/17 22:20 Dose: 600 mg Guaifenesin/Dextromethorphan (Robitussin Dm) 7.5 ml PO QID PRN PRN Reason: Cough Last Admin: 04/30/17 10:34 Dose: 7.5 ml Insulin Human Regular (Humulin R Low) 0 units SC ACHS [facility] PRN Reason: Protocol Last Admin: 05/01/17 22:21 Dose: Not Given Insulin Lispro Protam/Lispro Human (Humalog Mix 75/25) 10 units SC TID [facility] Last Admin: 05/01/17 17:29 Dose: Not Given Lisinopril (Zestril) 20 mg PO DAILY [facility] Last Admin: 05/01/17 14:35 Dose: 20 mg Methylprednisolone (Solu-Medrol) 40 mg IVP BID [facility] Last Admin: 05/01/17 18:17 Dose: 40 mg Metoprolol Succinate (Toprol Xl) 50 mg PO DAILY [facility] Last Admin: 05/01/17 10:43 Dose: Not Given Sevelamer HCl (Renagel) 4,000 mg PO WM [facility] Last Admin: 05/01/17 17:29 Dose: 4,000 mg Zolpidem Tartrate (Ambien) 5 mg PO HS PRN; Protocol PRN Reason: Insomnia Last Admin: 05/01/17 22:20 Dose: 5 mg - Labs Labs: 05/01/17 09:18 05/01/17 09:18 PT 10.6 Seconds (9.9-11.8) 04/28/17 12:15 INR 0.98 (0.93-1.08) 04/28/17 12:15 APTT 27.2 Seconds (23.7-30.8) 04/28/17 12:15 - Additional Findings Additional findings: - Constitutional Appears: No Acute Distress, Chronically Ill - Additional Findings Additional findings: - Head Exam Head Exam: ATRAUMATIC, NORMAL INSPECTION, NORMOCEPHALIC - Eye Exam Eye Exam: 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 absent: Tenderness Additional comments: obese - Extremities Exam Extremities exam: Positive for: full ROM. Negative for: pedal edema, pedal pulses present Additional comments: b\l leg scars right arm- bruise left arm bruit\A-F fistula - Back Exam Back exam: absent: paraspinal tenderness, vertebral tenderness - Neurological Exam Neurological exam: Alert, Normal Gait, Oriented x3 - Psychiatric Exam Psychiatric exam: Normal Mood - Skin Skin Exam: Intact, Petechiae - Additional Findings Additional findings: PM om chest wall Assessment and Plan (1) Asthmatic bronchitis Status: Acute (2) MARCELLO (obstructive sleep apnea) Status: Acute (3) A-fib Status: Chronic (4) HTN (hypertension) Status: Chronic (5) Bronchiectasis Status: Chronic - Assessment and Plan (Free Text) Plan: continue all meds steroids tapering for rehab evaluvation.
[2017-05-02] MEDS: Albuterol-Ipratrop 3 mg / 0.5 (3 ml) UD IH SCH ×3 (01:24→13:22)
[2017-05-02 06:29] VITALS: O2SAT 96
[2017-05-02] MEDS: guaiFENesin DM 100 mg-10 mg/5 ml UD PO PRN (06:43)
[2017-05-02] MEDS: Acetylcysteine 20% Inhal Soln (4ml) INH SCH (07:32)
[2017-05-02] MEDS: Arformoterol 15 mcg/2 ml Inh Sol IH SCH (07:32)
[2017-05-02] MEDS: Budesonide 0.5 mg/2 ml Inhal Susp UD IH SCH (07:33)
[2017-05-02] MEDS: Insulin Reg-LOW-Coverage SC SCH ×3 (08:05→17:38)
[2017-05-02] MEDS: Metoprolol Succinate 50 mg XL Tab PO SCH (09:46)
--- NOTE | 2017-05-02 12:21 | RAD ---
HISTORY: crackles on right lung base COMPARISON: No prior. TECHNIQUE: Chest PA and lateral FINDINGS: LUNGS: No active pulmonary disease. PLEURA: No significant pleural effusion identified. No pneumothorax apparent. CARDIOVASCULAR: Mild cardiomegaly OSSEOUS STRUCTURES: Sternal wires VISUALIZED UPPER ABDOMEN: Normal. OTHER FINDINGS: Dual lead pacemaker IMPRESSION: No active disease.
[2017-05-02 12:39] VITALS: RESP 19
[2017-05-02] MEDS: Insulin Lispro (humaLOG) MIX 75/25(10 ml) SC SCH ×3 (12:42→17:40)
[2017-05-02 17:44] VITALS: BP 146/88; PULSE 67
[2017-05-02 18:16] VITALS: TEMP 97.4
--- NOTE | 2017-05-03 09:23 | PN ---
DATE OF SERVICE: 05/02/2017 SUBJECTIVE: The patient is seen sitting in bed. He is awake, he is alert, he is comfortable. He reports his breathing is better. He wants to go home. PHYSICAL EXAMINATION: GENERAL: Elderly male, sitting in bed. VITAL SIGNS: Blood pressure 141/72, heart rate 69, respiratory rate 20, temperature 97.6. HEENT: Normocephalic; corneal opacity, right eye; pupil reactive to light, left eye. NECK: Supple, no JVD. LUNGS: Bilateral equal air entry, crackles, right base. CARDIAC: S1, S2, positive murmur, no rub. ABDOMEN: Obese, distended, soft, nontender, bowel sounds present. EXTREMITIES: No lower extremity edema. INTAKE AND OUTPUT: Not charted. LABORATORY DATA: No new labs today, potassium pre-dialysis 5.9 yesterday. CURRENT MEDICATIONS: Mucomyst, Ambien, Brovana, Cleocin, Cordarone, DuoNeb, Ecotrin, Eliquis, insulin, prednisone, Sensipar 90 b.i.d, Toprol-XL 50, Zestril 20, Zithromax 250 daily. ASSESSMENT: 1. Asthmatic bronchitis, resolving. 2. Hyperkalemia. 3. End-stage renal disease. 4. Coronary artery disease. 5. Puj-fdcwykj-dujoocgzj diabetes mellitus. 6. Hypertension. PLAN: 1. Status post dialysis yesterday, he was dialyzed with a potassium 1 bath at the end of the treatment. 2. Chest x-ray today to evaluate crackles, right base. 3. No objection to discharge if chest x-ray is unremarkable. Virginia Rios MD
--- NOTE | 2017-05-03 09:43 | PN ---
DATE: 05/02/2017 SUBJECTIVE: The patient's shortness of breath has improved. No reported ventricular tachycardia on the monitor. PHYSICAL EXAMINATION VITAL SIGNS: Blood pressure 182/67, heart rate 74, temperature 98.5, respirations 19. HEENT: Pale conjunctivae as well as right corneal opacity and very poor visual acuity. NECK: No JVD. CHEST: Minimal rhonchi. HEART: S1, S2 regular. ABDOMEN: Soft. EXTREMITIES: Significant muscle wasting. LABORATORY DATA: Today's blood sugar is 162 and 138. Today's chest x-ray revealed cardiomegaly with mild CHF. ASSESSMENT: 1. Status post volume overload. 2. End-stage renal disease on hemodialysis. 3. Uncontrolled hypertension. 4. Uncontrolled diabetes mellitus. 5. Coronary artery disease status post coronary artery bypass surgery and implantable cardioverter-defibrillator placement in 2002. 6. Atrial flutter/fibrillation. RECOMMENDATIONS: Continue chronic amiodarone 200 mg p.o. twice a day, aspirin 81 mg once a day, Eliquis at 2.5 mg twice a day, prednisone at 40 mg once a day, Robitussin 7.5 mg q.i.d., Zestril 20 mg once a day, Zithromax at 250 mg daily. 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 David Varela MD
--- NOTE | 2017-05-03 12:39 | PN ---
DATE: REFERRING PHYSICIAN: Arlin Lauren MD SUBJECTIVE: He is lying in the bed, head up 45 degrees, is at bedside, feels much better on supplemental oxygen, being discharged home today. Cough is much better. Shortness of breath is better. Admits to have loud snoring, daytime sleeping, and tired. No nausea, no vomiting, no diarrhea, no leg pain or leg swelling. PHYSICAL EXAMINATION: GENERAL: No acute distress. VITAL SIGNS: Temp is 98, heart rate 74, respiratory rate is 20, blood pressure 187/77. His pulse ox is 96% on nasal cannula. HEENT: Small oral cavity. *------*. Mallampati score is 4. NECK: Short thick neck. LUNGS: Scattered rhonchi. He is overall better. HEART: S1 and S2. ABDOMEN: Soft, nontender, nondistended. EXTREMITIES: There is no edema. NEUROLOGICAL: He is awake, alert, follows simple commands. MEDICATIONS: He is on Mucomyst 20% inhaled twice a day, Ambien 5 mg at bedtime p.r.n,, Brovana inhaled twice a day, Cleocin 600 mg q. 8 hour, amiodarone 200 mg twice a day, albuterol, Atrovent nebulizer q. 6 hours p.r.n. basis, Ecotrin 81 mg daily, Eliquis 2.5 mg twice daily, insulin coverage, prednisone 40 mg daily, Pulmicort inhaled twice a day, Renagel with the meals, Robitussin p.r.n. basis, Sensipar 90 mg twice a day, Toprol-XL 50 mg daily, Zestril 20 mg daily, Zithromax 500 mg daily. LABORATORY DATA: Reviewed, shows blood sugar this morning 138. Microbiology blood culture has been negative. Chest x-ray done this morning shows no active pulmonary disease. CAT scan on admission shows bronchiectasis and bronchiolitis. IMPRESSION AND PLAN: Chronic obstructive lung disease, bronchiectasis, bronchiolitis, oropharyngeal dysphagia, may have a chronic aspiration, hypertension, renal failure, dialysis dependent, diabetes, history of colon cancer, coronary artery disease, history of coronary bypass surgery, history of cardiac arrhythmia requiring pacemaker, may be sleep apnea syndrome; while in the hospital, was placed on BiPAP and doing okay. Spoke to nursing staff, also spoke to the patient's at bedside. All the questions answered. May go home on p.o. antibiotics and p.o. tapered dose of prednisone. We will give him Breo 200/25 one puff daily, Ventolin HFA q. 4 hours p.r.n. We will schedule him outpatient *------* CPAP. We will need to get him BiPAP as soon as possible. PFT as outpatient. Aspiration precautions. The patient and expressed understanding of his disease and will follow up. Crescencio Daniels MD
--- NOTE | 2017-05-05 13:27 | CP.PCM.DIS ---
Provider - Provider Date of Admission: 04/30/17 10:35 Attending physician: Arlin Lauren MD Primary care physician: NO PRIMARY CARE PROVIDER Time Spent in preparation of Discharge (in minutes): 30 Diagnosis - Discharge Diagnosis (1) Asthmatic bronchitis Status: Acute (2) MARCELLO (obstructive sleep apnea) Status: Acute (3) Stridor Status: Resolved Priority: High (4) A-fib Status: Chronic (5) HTN (hypertension) Status: Chronic (6) Bronchiectasis Status: Chronic Hospital Course - Lab Results Lab Results: Most Recent Lab Values WBC 14.0 10^3/ul (4.5-11.0) H D 05/01/17 09:18 RBC 3.45 10^6/uL (3.5-6.1) L 05/01/17 09:18 Hgb 10.4 gm/dL (14.0-18.0) L 05/01/17 09:18 Hct 30.6 % (42.0-52.0) L 05/01/17 09:18 MCV 88.7 fL (80.0-105.0) 05/01/17 09:18 MCH 30.1 pg (25.0-35.0) 05/01/17 09:18 MCHC 34.0 g/dl (31.0-37.0) 05/01/17 09:18 RDW 14.1 % (11.5-14.5) 05/01/17 09:18 Plt Count 183 10^3/uL (120.0-450.0) 05/01/17 09:18 MPV 9.7 fl (7.0-11.0) 05/01/17 09:18 Gran % 89.4 % (50.0-68.0) H 04/30/17 10:00 Lymph % (Auto) 6.6 % (22.0-35.0) L 04/30/17 10:00 Weld % (Auto) 4.0 % (1.0-6.0) 04/30/17 10:00 Eos % (Auto) 0.0 % (1.5-5.0) L 04/30/17 10:00 Baso % (Auto) 0.0 % (0.0-3.0) 04/30/17 10:00 Gran # 7.98 (1.4-6.5) H 04/30/17 10:00 Lymph # 0.6 (1.2-3.4) L 04/30/17 10:00 Weld # 0.4 (0.1-0.6) 04/30/17 10:00 Eos # 0.0 (0.0-0.7) 04/30/17 10:00 Baso # 0.00 K/mm3 (0.0-2.0) 04/30/17 10:00 Neutrophils % (Manual) 95 % (50.0-70.0) H 04/29/17 15:15 Lymphocytes % (Manual) 3 % (22.0-35.0) L 04/29/17 15:15 Monocytes % (Manual) 2 % (1.0-6.0) 04/29/17 15:15 Platelet Evaluation Normal (NORMAL) 04/29/17 15:15 Anisocytosis (manual) Slight 04/29/17 15:15 ESR 16 mm/hr (0.00-15.0) H 04/28/17 12:15 PT 10.6 Seconds (9.9-11.8) 04/28/17 12:15 INR 0.98 (0.93-1.08) 04/28/17 12:15 APTT 27.2 Seconds (23.7-30.8) 04/28/17 12:15 pO2 133 mm/Hg (30-55) H 04/28/17 12:15 VBG pH 7.32 (7.32-7.43) 04/28/17 12:15 VBG pCO2 50.0 (40-60) 04/28/17 12:15 VBG HCO3 25.8 mmol/l (21-28) 04/28/17 12:15 VBG Total CO2 27.3 mmol.L (22-28) 04/28/17 12:15 VBG O2 Sat (Calc) 97.3 % (40-65) H 04/28/17 12:15 VBG Base Excess -0.9 mmol/L (0.0-2.0) L 04/28/17 12:15 VBG Potassium 6.4 mmol/L (3.6-5.2) H* 04/28/17 12:15 Sodium 130.0 mmol/L (132-148) L 04/28/17 12:15 Chloride 96.0 mmol/L (98-107) L 04/28/17 12:15 Glucose 99 mg/dl (75-110) 04/28/17 12:15 Lactate 1.3 mmol/L (0.7-2.1) 04/28/17 12:15 FiO2 21.0 % 04/28/17 12:15 Sodium 128 mmol/L (132-148) L 05/01/17 09:18 Potassium 5.9 mmol/L (3.6-5.0) H* 05/01/17 09:18 Chloride 93 mmol/L (98-107) L 05/01/17 09:18 Carbon Dioxide 20 mmol/L (21-33) L 05/01/17 09:18 Anion Gap 21 (10-20) H 05/01/17 09:18 BUN 79 mg/dL (7-21) H 05/01/17 09:18 Creatinine 8.6 mg/dL (0.5-1.4) H* 05/01/17 09:18 Est GFR ( Amer) 8 05/01/17 09:18 Est GFR (Non-Af Amer) 6 05/01/17 09:18 POC Glucose (mg/dL) 169 mg/dL (65-110) H 05/02/17 17:18 Random Glucose 101 mg/dL (70-110) 05/01/17 09:18 Calcium 10.3 mg/dL (8.4-10.5) 05/01/17 09:18 Phosphorus 6.2 mg/dL (2.5-4.5) H 05/01/17 09:18 Magnesium 2.2 mg/dL (1.7-2.2) 05/01/17 09:18 Total Bilirubin 0.8 mg/dL (0.2-1.3) 05/01/17 09:18 AST 86 U/L (15-59) H 05/01/17 09:18 ALT 55 U/L (7-56) 05/01/17 09:18 Alkaline Phosphatase 104 U/L (38-133) 05/01/17 09:18 Lactate Dehydrogenase 451 U/L (333-699) 04/28/17 21:50 Total Creatine Kinase 289 U/L (35-230) H 04/28/17 21:50 CK-MB (CK-2) 4.6 ng/mL (0.0-3.6) H 04/28/17 21:50 CK-MB (CK-2) % Cancelled 04/28/17 12:15 Troponin I 0.05 ng/mL 04/28/17 21:50 C-React Prot High Sens 5.96 mg/L (1.00-3.00) H 04/28/17 12:15 Total Protein 6.5 g/dL (5.8-8.3) 05/01/17 09:18 Albumin 3.8 g/dL (3.0-4.8) 05/01/17 09:18 Globulin 2.7 gm/dL 05/01/17 09:18 Albumin/Globulin Ratio 1.4 (1.1-1.8) 05/01/17 09:18 Lipase 128 U/L (23-300) 04/28/17 12:15 Procalcitonin 0.71 NG/ML (0.19-0.49) H 04/28/17 12:15 Venous Blood Potassium 6.4 mmol/L (3.6-5.2) H* 04/28/17 12:15 - Hospital Course Hospital Course: improved significantly refuse rehab wants to go home f\u PMD\pulmonology Discharge Exam - Head Exam Head Exam: ATRAUMATIC, NORMAL INSPECTION, NORMOCEPHALIC - Additional Findings Additional findings: - Constitutional Appears: No Acute Distress, Chronically Ill - Additional Findings Additional findings: - Head Exam Head Exam: ATRAUMATIC, NORMAL INSPECTION, NORMOCEPHALIC - Eye Exam Eye Exam: 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 absent: Tenderness Additional comments: obese - Extremities Exam Extremities exam: Positive for: full ROM. Negative for: pedal edema, pedal pulses present Additional comments: b\l leg scars right arm- bruise left arm bruit\A-F fistula - Back Exam Back exam: absent: paraspinal tenderness, vertebral tenderness - Neurological Exam Neurological exam: Alert, Normal Gait, Oriented x3 - Psychiatric Exam Psychiatric exam: Normal Mood - Skin Skin Exam: Intact, Petechiae - Additional Findings Additional findings: PM om chest wall Discharge Plan - Discharge Medications Prescriptions: Clindamycin [Cleocin] 600 mg PO Q8 3 Days predniSONE [predniSONE Tab] 10 mg PO DAILY #9 tab - Follow Up Plan Condition: FAIR Disposition: HOME/ ROUTINE Instructions: Asthma (DC), Diabetes Mellitus Type 2 in Adults (DC), Chronic Bronchitis (DC), Chronic Hypertension (DC), End Stage Kidney Disease (DC) Additional Instructions: Continue to take medications as prescribed. Follow up with PMD within one week of discharge. Referrals: PCP,NO [Primary Care Provider] -
--- NOTE | 2017-05-10 19:05 | PQF PNEUMO ---
05/10/17 Dr. Arlin Lauren, Per quality process auditor, please clarify whether pneumonia was ruled in, ruled out, undetermined, other. Pneumonia is documented only once, on consult of 05/01 by [employer] financial[employer] consultant. Thank you. Clarification of your documentation is requested to better reflect the severity of illness and intensity of treatment of your patient. Indicators present [] Documented diagnosis of pneumonia [] X-ray findings: [] Positive Sputum cultures [] Cough w/ fever [] Abnormal lungs sounds [] Poor gag reflex [] Speech consults/swallow evaluation [] Vent dependence [] Other: [] Location in the medical record that reflects the above clinical findings: [] Treatment Provided: [] PHYSICIAN'S RESPONSE Based on your medical judgment of the clinical indicators outlined above, are you treating this patient for a known or suspected: [] Aspiration pneumonia [] Community acquired pneumonia [] Ventilator associated pneumonia [] Viral pneumonia [] Bacterial pneumonia Please specify organism: [] [] Other, please indicate [] If Unable to Determine, please check the box, sign and date. Present On Admission (POA) Indicator: [] Present at the time of admission [] Not present at the time of admission [] Clinically Undetermined In responding to this query, please exercise your independent professional judgment. The fact that a question is asked does not imply that any particular answer is desired or expected. Thank you for your clarification on this documentation. If you have any questions please call:[ ] * Thank you, [ ] batt packer MANUEL
== END 2017-05-02 18:45 | disposition home or self-care (01) | DRG 202 ==
LOC: ED 12:01 → ERH 13:45 → 2RNO 14:52 → OBSVTOIN 04-30 10:35
PROVIDERS: ADMIT Internal Medicine; ATTEND Internal Medicine
PROC: 5A1D60Z (ICD-10-PCS; principal; 2017-04-29)
PROC: 5A09357 Assistance with Respiratory Ventilation, Less than 24 Consecutive Hours, Continuous Positive Airway Pressure (ICD-10-PCS; 2017-04-30)
DX: J45.909 Unspecified asthma, uncomplicated (principal); J18.9 Pneumonia, unspecified organism; I13.2 Hypertensive heart and chronic kidney disease with heart failure and with stage 5 chronic kidney disease, or end stage renal disease; J47.0 Bronchiectasis with acute lower respiratory infection; N18.6 End stage renal disease; J44.0 Chronic obstructive pulmonary disease with (acute) lower respiratory infection; E11.22 Type 2 diabetes mellitus with diabetic chronic kidney disease; R13.12 Dysphagia, oropharyngeal phase; I48.92 Unspecified atrial flutter; J21.9 Acute bronchiolitis, unspecified; I48.2 Chronic atrial fibrillation; I25.10 Atherosclerotic heart disease of native coronary artery without angina pectoris; I50.9 Heart failure, unspecified; K21.9 Gastro-esophageal reflux disease without esophagitis; Z79.01 Long term (current) use of anticoagulants; Z79.82 Long term (current) use of aspirin; Z95.1 Presence of aortocoronary bypass graft; Z95.810 Presence of automatic (implantable) cardiac defibrillator; Z95.0 Presence of cardiac pacemaker; Z90.49 Acquired absence of other specified parts of digestive tract; Z86.74 Personal history of sudden cardiac arrest; Z85.038 Personal history of other malignant neoplasm of large intestine; Z83.3 Family history of diabetes mellitus; Z82.49 Family history of ischemic heart disease and other diseases of the circulatory system; G47.33 Obstructive sleep apnea (adult) (pediatric); Z99.2 Dependence on renal dialysis; F51.02 Adjustment insomnia; E87.5 Hyperkalemia; E66.01 Morbid (severe) obesity due to excess calories; E11.65 Type 2 diabetes mellitus with hyperglycemia; D64.9 Anemia, unspecified; R26.81 Unsteadiness on feet; R40.2412 Glasgow coma scale score 13-15, at arrival to emergency department; R06.1 Stridor; Z68.34 Body mass index [BMI] 34.0-34.9, adult; M62.50 Muscle wasting and atrophy, not elsewhere classified, unspecified site; H54.41 Blindness, right eye, normal vision left eye; H17.9 Unspecified corneal scar and opacity; I51.7 Cardiomegaly

== ENCOUNTER 2017-05-03 05:38 | Observation (INO) | payer MEDICARE ==
[2017-05-03 05:44] VITALS: BMI 31.6
[2017-05-03] MEDS ORDERED: Albuterol-Ipratrop 3 mg / 0.5 (3 ml) UD IH STA (05:57)
--- NOTE | 2017-05-03 05:58 | ED PDOC ---
Arrival/HPI - General Historian: Patient - History of Present Illness Time/Duration: Other (yesterday evening) Symptom Onset: Gradual Symptom Course: Unchanged Activities at Onset: Rest, Light Context: Home <Jean Carlos Brown - Last Filed: 05/03/17 06:49> <Tod Friedman - Last Filed: 05/03/17 18:03> - General Chief Complaint: Shortness Of Breath Time Seen by Provider: 05/03/17 05:43 - History of Present Illness Narrative History of Present Illness (Text): 05/03/17 05:57 Benny Emerson is a 66 year old male, whose past medical history includes IDDM, hypertension, ESRD on hemodialysis, and CAD, who presents to the Emergency department brought in by EMS complaining of shortness of breath since yesterday evening. Patient reports he was recently discharged from the hospital yesterday but shortness of breath returned later in the evening. Patient had nebulizer treatments at home and en route to ER but denies any significant relief. Patient is scheduled for hemodialysis today. Patient denies any chest pain, nausea, vomiting, diarrhea, back pain, neck pain, headache, dizziness, or any other complaints. (Jean Carlos Brown) Past Medical History - Provider Review Nursing Documentation Reviewed: Yes - Cardiac Hx Hypertension: Yes Hx Pacemaker: Yes - Pulmonary Hx Lung Cancer: No Hx Pulmonary Embolism: No - Renal Hx Dialysis: Yes (M-W-F) - Endocrine/Metabolic Hx Diabetes Mellitus Type 2: Yes - Hematological/Oncological Hx Cancer: Yes (colon) - Musculoskeletal/Rheumatological Hx Falls: No - Gastrointestinal Hx Gastroesophageal Reflux: Yes - Psychiatric Hx Substance Use: No - Surgical History Hx Open Heart Surgery: Yes Other/Comment: Pacemaker/defib, colon removal(1 F) - Anesthesia Hx Anesthesia: Yes Hx Anesthesia Reactions: No Hx Malignant Hyperthermia: No <Jean Carlos rBown - Last Filed: 05/03/17 06:49> Family/Social History - Physician Review Nursing Documentation Reviewed: Yes Family/Social History: Unknown Family HX Smoking Status: Never Smoked Hx Alcohol Use: No Hx Substance Use: No <Jean Carlos Brown - Last Filed: 05/03/17 06:49> Allergies/Home Meds <Jean Carlos Brown - Last Filed: 05/03/17 06:49> <Tod Friedman - Last Filed: 05/03/17 18:03> Allergies/Adverse Reactions: Allergies No Known Allergies Allergy (Verified 04/28/17 12:13) Home Medications: Home Meds Medication Instructions Recorded Confirmed Amiodarone HCl [Pacerone] 200 mg PO BID 04/28/17 05/03/17 Apixaban [Eliquis] 2.5 mg PO BID 04/28/17 05/03/17 Aspirin [Ecotrin] 81 mg PO DAILY 04/28/17 05/03/17 Azithromycin [Zithromax] 250 mg PO DAILY 04/28/17 05/03/17 Cinacalcet [Sensipar] 90 mg PO BID 04/28/17 05/03/17 Enalapril Maleate [Vasotec] 10 mg PO TID 04/28/17 05/03/17 Insulin Lispro Protamin/Lispro 10 units SC TID 04/28/17 05/03/17 [Humalog Mix 75-25 Kwikpen] Metoprolol Succinate [Toprol XL] 50 mg PO DAILY 04/28/17 05/03/17 Sevelamer Carbonate [Renvela] 7 tab PO TID 04/28/17 05/03/17 Zolpidem [Ambien] 10 mg PO DAILY 04/28/17 05/03/17 Midodrine [Proamatine] 5 mg PO MWF PRN 04/29/17 05/03/17 Breo Ellipta 200-25 Mcg INH 1 puff DAILY 05/02/17 05/03/17 Proair Hfa 2 puff PO QID 05/02/17 05/03/17 Review of Systems - Physician Review All systems were reviewed & negative as marked: Yes <Jean Carlos Brown - Last Filed: 05/03/17 06:49> Physical Exam Vital Signs Reviewed: Yes Temperature: Afebrile Blood Pressure: Normal Pulse: Regular Respiratory Rate: Normal Appearance: Positive for: Well-Appearing, Non-Toxic, Comfortable Pain Distress: None Mental Status: Positive for: other (Sleepy but arousbale) <Jean Carlos Brown - Last Filed: 05/03/17 06:49> <Tod Friedman - Last Filed: 05/03/17 18:03> - Physical Exam Narrative Physical Exam (Text): - Review of Systems Constitutional: Normal. absent: Fatigue, Weight Change, Fevers Eyes: Normal ENT: Normal Respiratory: +shortness of breath Cardiovascular: Normal absent: Chest pain, Palpitations, Syncope Gastrointestinal: Normal absent: Abdominal pain, Diarrhea, Nausea, Vomiting Genitourinary: Normal. absent: Dysuria, Frequency, Hematuria Musculoskeletal: Normal. absent: Arthralgias, Back Pain, Neck Pain Skin: Normal Neurological: Normal absent: Focal Weakness Endocrine: Normal Hemo/Lymphatic: Normal Psychiatric: Normal - Physical exam Patient appears age appropriate, speaking full sentences without difficulty - Systems Exam Head: Present: Atraumatic, Normocephalic Pupils: Present: PERRL Extraocular Muscles: Present: EOMI Conjunctiva: Present: Normal Mouth: Present: Moist Mucous Membranes Neck: Present: Normal Range of Motion. No: MIDLINE TENDERNESS, Paraspinal Tenderness Respiratory/Chest: Present: Bibasilar crackles, expiratory wheezing. No: Respiratory Distress, Accessory Muscle Use, Tachypnic Cardiovascular: Present: Regular Rate and Rhythm, Normal S1, S2, Peripheral Pulses Present. No: Murmurs Abdomen: Present: Normal Bowel Sounds, No: Tenderness, Peritoneal Signs, Rebound, Guarding, Distention Back: Present: Normal Inspection. No: Midline Tenderness, Paraspinal Tenderness Upper Extremity: Present: Normal Inspection. No: Cyanosis, Edema Lower Extremity: Present: Normal Inspection. No: Edema Neurological: Present: GCS=15, Speech Normal, cranial nerves II through XII fully intact with no cerebellar abnormality, neuro-sensory fully intact. No focal neurological deficits. Skin: Present: Warm, Dry, Normal Color. No: Rashes Lymphatic: Present: OX3, NI, NC Psychiatric: Present: Sleepy but arousable. (Jean Carlos Brown) Vital Signs Pulse Resp BP Pulse Ox 05/03/17 10:51 66 20 120/64 99 05/03/17 10:40 20 99 05/03/17 10:08 61 17 125/65 100 05/03/17 09:23 62 17 136/69 100 05/03/17 07:57 65 22 174/84 H 05/03/17 07:07 63 16 171/98 H 99 05/03/17 05:47 22 100 Medical Decision Making - EKG Interpretation Interpreted by ED Physician: Yes Type: 12 lead EKG <Jean Carlos Brown - Last Filed: 05/03/17 06:49> <Tod Friedman - Last Filed: 05/03/17 18:03> ED Course and Treatment: 05/03/17 05:57 Impression: 66 year old male brought in for shortness of breath since yesterday evening. On exam, there is bibasilar crackles, expiratory wheezing, pt appears sleepy but arousable. Differential Diagnosis included but are not limited to: bronchitis vs. pneumonia vs. CHF Plan: -- EKG -- Chest X-ray -- Labs, cardiac enzymes, BNP, blood cultures -- Duoneb -- Solu-medrol -- Aspirin -- Reassess and disposition Prior Visits: Notes and results from previous visits were reviewed. On 04/30/2017, pt was admitted to the hospital. CT Chest performed showed bronchiectasis. Pt encouraged to use BiPAP overnight. Progress Notes: 05/03/17 06:50 EKG: Ordered, reviewed, and independently interpreted the EKG. Rate : 80 BPM Rhythm : paced Interpretation : LVH Comparison : No changes versus EKG on 04/28/2017. BP elevated, ntg ordered pt tolerating Bipap well dw Dr. Rios, states will place HD orders 05/03/17 07:00 pt signed out to Dr. Friedman in stable condition, pending labs, HD, reevaluation, and dispo (Jean Carlos Brown) - Lab Interpretations Lab Results: 05/03/17 06:07 05/03/17 06:25 Lab Results 05/03/17 11:00: POC Glucose (mg/dL) 91 05/03/17 10:18: POC Glucose (mg/dL) 67 05/03/17 06:25: Sodium 131 L, Potassium 5.7 H*, Chloride 97 L, Carbon Dioxide 19 L, Anion Gap 21 H, BUN 87 H, Creatinine 8.1 H*, Est GFR ( Amer) 8, Est GFR (Non-Af Amer) 7, Random Glucose 50 L, Calcium 9.9, Total Bilirubin 1.0, AST 113 H, ALT 77 H, Alkaline Phosphatase 101, Lactate Dehydrogenase 866 H, Total Creatine Kinase 1537 H, CK-MB (CK-2) 20.2 H, CK-MB (CK-2) % 1.3 L, Troponin I 0.09 D, NT-Pro-B Natriuret Pep 73438 H, Total Protein 6.7, Albumin 3.9, Globulin 2.8, Albumin/Globulin Ratio 1.4 05/03/17 06:07: PT 11.1, INR 1.03, APTT 24.4 05/03/17 06:07: WBC 12.4 H, RBC 3.68, Hgb 10.8 L, Hct 32.9 L, MCV 89.4, MCH 29.3 , MCHC 32.8, RDW 14.2, Plt Count 219, MPV 9.8, Gran % 78.4 H, Lymph % (Auto) 14.0 L, [place] % (Auto) 7.3 H, Eos % (Auto) 0.2 L, Baso % (Auto) 0.1, Gran # 9.72 H, Lymph # 1.7, [place] # 0.9 H, Eos # 0.0, Baso # 0.01 - RAD Interpretation Radiology Orders: 05/03/17 05:59 CHEST PORTABLE [RAD] Stat - Medication Orders Current Medication Orders: Amiodarone HCl (Cordarone) 200 mg PO BID [facility] Last Admin: 05/03/17 17:26 Dose: 200 mg Apixaban (Eliquis) 2.5 mg PO BID [facility] PRN Reason: Protocol Last Admin: 05/03/17 17:27 Dose: 2.5 mg Aspirin (Ecotrin) 81 mg PO DAILY [facility] Cinacalcet (Sensipar) 90 mg PO BID [facility] Last Admin: 05/03/17 17:27 Dose: 90 mg Guaifenesin/Dextromethorphan (Robitussin Dm) 7.5 ml PO QID PRN PRN Reason: Cough Last Admin: 05/03/17 17:27 Dose: 7.5 ml Insulin Human Regular (Humulin R Med) 0 units SC ACHS [facility] PRN Reason: Protocol Last Admin: 05/03/17 17:27 Dose: 3 units Insulin Lispro Protam/Lispro Human (Humalog Mix 75/25) 10 units SC TID [facility] Last Admin: 05/03/17 17:22 Dose: Lisinopril (Zestril) 20 mg PO DAILY [facility] Last Admin: 05/03/17 17:23 Dose: Methylprednisolone (Solu-Medrol) 30 mg IV Q12 [facility] Last Admin: 05/03/17 17:23 Dose: Metoprolol Succinate (Toprol Xl) 50 mg PO DAILY [facility] Last Admin: 05/03/17 17:23 Dose: Midodrine (Proamatine) 5 mg PO MWF PRN PRN Reason: as needed for bp below 100/60 Pantoprazole Sodium (Protonix Ec Tab) 40 mg PO 0630 [facility] Sevelamer HCl (Renagel) 5,600 mg PO TID [facility] Last Admin: 05/03/17 17:23 Dose: Not Given Non-Admin Reason: Patient Refused Zolpidem Tartrate (Ambien) 10 mg PO HS [facility] PRN Reason: Protocol Discontinued Medications Albuterol/Ipratropium (Duoneb 3 Mg/0.5 Mg (3 Ml) Ud) 3 ml IH STAT STA Stop: 05/03/17 05:58 Last Admin: 05/03/17 06:15 Dose: 3 ml Aspirin (Aspirin Chewable) 324 mg PO STAT STA Stop: 05/03/17 05:58 Last Admin: 05/03/17 06:30 Dose: 324 mg Methylprednisolone (Solu-Medrol) 125 mg IVP STAT STA Stop: 05/03/17 05:58 Last Admin: 05/03/17 06:45 Dose: 125 mg Nitroglycerin (Nitro-Bid 2% Oint) 1 ea TOP STAT STA Stop: 05/03/17 06:46 Last Admin: 05/03/17 06:52 Dose: 1 ea Non-Formulary Medication (Sevelamer Carbonate [Renvela]) 7 tab PO TID [facility] ED OBSERVATION Date of observation admission: 05/03/17 Time of observation admission: 06:00 <Jean Carlos Brown - Last Filed: 05/03/17 06:49> <Tod Friedman - Last Filed: 05/03/17 18:03> - Observation admission statement Patient is being placed in observation because:: hemodialysis (Jean Carlos Brown) - Goals of Observation Goals of observation are:: hemodialysis (Jean Carlos Brown) - Progress Note Progress Note: Patient went to dialysis. Accepted for further evaluation and treatment on medical service. (Tod Friedman) - Scribe Statement The provider has reviewed the documentation as recorded by the Scribe <Jean Carlos Brown - Last Filed: 05/03/17 06:49> <Tod Friedman - Last Filed: 05/03/17 18:03> - Scribe Statement Karely Rubio Provider Scribe Attestation: All medical record entries made by the Scribe were at my direction and personally dictated by me. I have reviewed the chart and agree that the record accurately reflects my personal performance of the history, physical exam, medical decision making, and the department course for this patient. I have also personally directed, reviewed, and agree with the discharge instructions and disposition. (Jean Carlos Brown) Disposition/Present on Arrival - Present on Arrival Any Indicators Present on Arrival: No History of DVT/PE: No History of Uncontrolled Diabetes: Yes Urinary Catheter: No History of Decub. Ulcer: No History Surgical Site Infection Following: None - Disposition Have Diagnosis and Disposition been Completed?: No Disposition Time: 06:00 Patient Plan: Observation <Jean Carlos Brown - Last Filed: 05/03/17 06:49> - Disposition Have Diagnosis and Disposition been Completed?: Yes Patient Plan: Observation <Tod Friedman - Last Filed: 05/03/17 18:03> - Disposition Diagnosis: Asthma exacerbation Disposition: HOSPITALIZED Condition: FAIR
[2017-05-03] MEDS ORDERED: Nitroglycerin 2% Ointment Foilpak UD TOP STA (06:45)
[2017-05-03 06:51] LABS: ALB/GLOB RATIO 1.4 (1.1-1.8); ALBUMIN 3.9 g/dL (3.0-4.8); CALCIUM 9.9 mg/dL (8.4-10.5)
[2017-05-03 07:03] LABS: TROPONIN I 0.09 ng/mL
[2017-05-03 07:36] LABS: INR 1.03 (0.93-1.08); PARTIAL THROMBOPLASTIN TIME 24.4 Seconds (23.7-30.8); PROTHROMBIN TIME 11.1 Seconds (9.9-11.8)
[2017-05-03 07:41] LABS: BASO # 0.01 K/mm3 (0.0-2.0); BASO % 0.1 % (0.0-3.0); EOS % 0.2 % (1.5-5.0); GRAN # 9.72 (1.4-6.5); GRAN % 78.4 % (50.0-68.0); HEMOGLOBIN 10.8 gm/dL (14.0-18.0); LYMPH # 1.7 (1.2-3.4); MEAN CELL VOLUME 89.4 fL (80.0-105.0); MEAN CORPUSCULAR HEMOGLOBIN 29.3 pg (25.0-35.0); MEAN CORPUSCULAR HGB CONC 32.8 g/dl (31.0-37.0); MEAN PLATELET VOLUME 9.8 fl (7.0-11.0); MONO # 0.9 (0.1-0.6); MONO % 7.3 % (1.0-6.0); PLATELET COUNT 219 10^3/uL (120.0-450.0); RBC 3.68 10^6/uL (3.5-6.1); RED CELL DISTRIBUTION WIDTH 14.2 % (11.5-14.5); WHITE BLOOD COUNT 12.4 10^3/ul (4.5-11.0)
--- NOTE | 2017-05-03 08:54 | RAD ---
HISTORY: cough COMPARISON: 05/02/2017 FINDINGS: LUNGS: No active pulmonary disease. PLEURA: No significant pleural effusion identified, no pneumothorax apparent. CARDIOVASCULAR: Normal. OSSEOUS STRUCTURES: Sternal wires VISUALIZED UPPER ABDOMEN: Normal. OTHER FINDINGS: Dual lead pacemaker IMPRESSION: No active disease.
[2017-05-03 09:12] LABS: CK MB% 1.3 % (2.5-3.0); CK-MB 20.2 ng/mL (0.0-3.6)
--- NOTE | 2017-05-03 09:25 | CARD ---
APPROVED REPORT EKG Measurement Heart [id number] <Conclusion> V paced rythm underlying A Fib
[2017-05-03 10:41] VITALS: RESP 20
[2017-05-03] MEDS ORDERED: SEVELAMER CARBONATE PO SCH (14:00)
[2017-05-03] MEDS: Insulin Lispro (humaLOG) MIX 75/25(10 ml) SC SCH ×2 (17:22→18:28)
[2017-05-03] MEDS: Metoprolol Succinate 50 mg XL Tab PO SCH (17:23)
[2017-05-03] MEDS: MethylPREDNISolone 40 mg Vial IV SCH ×2 (17:23→21:37)
[2017-05-03] MEDS: Insulin Reg-MEDIUM-Coverage SC SCH ×2 (17:27→21:36)
[2017-05-03] MEDS: guaiFENesin DM 100 mg-10 mg/5 ml UD PO PRN ×2 (17:27→23:07)
[2017-05-03] MEDS: Levalbuterol 1.25 MG/3 ML Inhal Soln UD IH SCH (20:09)
--- NOTE | 2017-05-03 20:48 | CT ---
EXAM: CT Chest Without Intravenous Contrast CLINICAL HISTORY: 66 years old, male; Signs and symptoms; Shortness of breath; Prior surgery; Surgery date: 6+ months; Surgery type: Open heart surgery; Additional info: SOB TECHNIQUE: Axial computed tomography images of the chest without intravenous contrast. This CT exam was performed using one or more of the following dose reduction techniques: automated exposure control, adjustment of the mA and/or kV according to patient size, and/or use of iterative reconstruction technique. MIP reconstructed images were created and reviewed. Coronal and sagittal reformatted images were created and reviewed. EXAM DATE/TIME: 05/03/2017 7:21 PM COMPARISON: CT - CHEST W/O HIGH RES CHEST 04/28/2017 2:07:35 PM FINDINGS: Lungs and pleural spaces: Trachea and main bronchi are patent.The lungs are well inflated. There are small granulomas bilaterally. There is subsegmental atelectasis in the right upper lobe adjacent to the minor fissure. There is linear atelectasis/scarring in both upper lobes. There is dependent atelectasis greatest at the lung bases. There is atelectasis and scarring at both lung bases. There is mild bronchial wall thickening greatest in the lower lobes.There is compressive atelectasis at the right base adjacent to the elevated right diaphragm There are no effusions Heart and vasculature: The heart is mildly enlarged. There are coronary calcifications. There is no pericardial effusion. Aorta and main pulmonary artery are normal in caliber.There are vascular calcifications. Bones/joints: Bony structures are mildly sclerotic There are postsurgical changes of median sternotomy.There are degenerative changes in the osseus structures. There are old right sixth and seventh rib fractures. Soft tissues: unremarkable Low neck and Mediastinum: Thyroid is not optimally demonstrated. There are multiple mildly prominent nodes in the mediastinum.[place] are not optimally evaluated without contrast material. The esophagus is unremarkable. There is a small hiatal hernia. Upper abdomen: There are extensive bilateral renovascular calcifications. There are bilateral renal cysts. There are granulomas in the spleen. There is extensive calcification of medium and small vessels in the upper abdomen. Tubes, lines and devices: There is streak artifact from a pacemaker in the right chest wall. There is streak artifact from pacemaker leads. IMPRESSION: No focal pneumonia; mild bronchial wall thickening unchanged compared to the prior study; interval increase in basilar atelectasis Additional findings as described above.
[2017-05-04] MEDS: Levalbuterol 1.25 MG/3 ML Inhal Soln UD IH SCH ×4 (01:56→19:22)
--- NOTE | 2017-05-04 03:24 | CP.PCM.PN ---
Subjective - Date & Time of Evaluation Date of Evaluation: 05/04/17 Time of Evaluation: 03:24 - Subjective Subjective: # 22 angiocath was inserted in right hand. Dx:Poor venous access. Objective - Vital Signs/Intake and Output Vital Signs (last 24 hours): Temp Pulse Resp BP Pulse Ox 98.6 F 69 20 143/62 100 05/03/17 16:00 05/03/17 22:00 05/03/17 16:32 05/03/17 17:26 05/03/17 16:00 Intake and Output: 05/03/17 05/04/17 18:59 06:59 Intake Total 540 Balance 540 - Medications Medications: Current Medications Amiodarone HCl (Cordarone) 200 mg PO BID [facility] Last Admin: 05/03/17 17:26 Dose: 200 mg Apixaban (Eliquis) 2.5 mg PO BID [facility] PRN Reason: Protocol Last Admin: 05/03/17 17:27 Dose: 2.5 mg Aspirin (Ecotrin) 81 mg PO DAILY [facility] Cinacalcet (Sensipar) 90 mg PO BID [facility] Last Admin: 05/03/17 17:27 Dose: 90 mg Guaifenesin/Dextromethorphan (Robitussin Dm) 7.5 ml PO QID PRN PRN Reason: Cough Last Admin: 05/03/17 23:07 Dose: 7.5 ml Ceftriaxone Sodium (Rocephin 1 Gram Ivpb) 1 gm in 100 mls @ 100 mls/hr IVPB DAILY [facility] PRN Reason: Protocol Azithromycin (Zithromax 500mg In Ns) 500 mg in 250 mls @ 167 mls/hr IVPB DAILY [facility] PRN Reason: Protocol Insulin Human Regular (Humulin R Med) 0 units SC ACHS [facility] PRN Reason: Protocol Last Admin: 05/03/17 21:36 Dose: Not Given Insulin Lispro Protam/Lispro Human (Humalog Mix 75/25) 10 units SC TID [facility] Last Admin: 05/03/17 18:28 Dose: Not Given Levalbuterol HCl (Xopenex) 1.25 mg IH [id number] [facility] Last Admin: 05/04/17 01:56 Dose: 1.25 mg Lisinopril (Zestril) 20 mg PO DAILY [facility] Last Admin: 05/03/17 17:23 Dose: Not Given Methylprednisolone (Solu-Medrol) 30 mg IV Q12 [facility] Last Admin: 05/03/17 21:37 Dose: 30 mg Metoprolol Succinate (Toprol Xl) 50 mg PO DAILY [facility] Last Admin: 05/03/17 17:23 Dose: Not Given Midodrine (Proamatine) 5 mg PO MWF PRN PRN Reason: as needed for bp below 100/60 Pantoprazole Sodium (Protonix Ec Tab) 40 mg PO 0630 [facility] Sevelamer HCl (Renagel) 5,600 mg PO TID [facility] Last Admin: 05/03/17 17:23 Dose: Not Given Zolpidem Tartrate (Ambien) 10 mg PO HS [facility] PRN Reason: Protocol Last Admin: 05/03/17 21:37 Dose: 10 mg - Labs Labs: PT 11.1 Seconds (9.9-11.8) 05/03/17 06:07 INR 1.03 (0.93-1.08) 05/03/17 06:07 APTT 24.4 Seconds (23.7-30.8) 05/03/17 06:07
[2017-05-04] MEDS: Pantoprazole 40 mg EC Tab PO SCH (06:07)
[2017-05-04] MEDS: guaiFENesin DM 100 mg-10 mg/5 ml UD PO PRN ×3 (06:08→19:57)
--- NOTE | 2017-05-04 07:09 | CON ---
DATE: 05/03/2017 REASON FOR CONSULTATION: Shortness of breath, cough, ESRD, hyperkaliemia. HISTORY OF PRESENT ILLNESS: A 66-year-old male known to me from recent admission. The patient was admitted with the complaints of cough, shortness of breath. Dyspnea on exertion. He was found to have COPD exacerbation, respiratory distress, hypoxia, sleep apnea. The patient was treated with IV steroids, antibiotics. The patient was discharged home yesterday. The patient returned early in the morning with complaints shortness of breath, cough, inability to lay down. In the emergency room he was found to be hypertensive. Blood pressure was 171/98. He was tachypneic with the respiratory rate of 22. Chest x-ray showed no active pulmonary disease. Blood work showed potassium of 5.7. He is currently being observed for respiratory distress, cough. PAST MEDICAL AND SURGICAL HISTORY: NIDDM, hypertension, ESRD, on dialysis Saturday, Saturday and Saturday, colon cancer, history of hemicolectomy in 2002, CAD, CABG in 2002, AICD. FAMILY HISTORY: Hypertension and diabetes. SOCIAL HISTORY: No smoking, no alcohol use, no IV drug abuse. ALLERGIES: NO KNOWN DRUG ALLERGIES. MEDICATIONS: 1. Eliquis. 2. Pacerone. 3. Vasotec. 4. Cleocin. 5. Sensipar. 6. Breo. 7. Zithromax. 8. ProAmatine. 9. Toprol-XL 50 daily. 10. Zestril 20 daily. 11. Insulin. 12. Prednisone 10 mg daily. 13. Zolpidem. 14. Renvela. REVIEW OF SYSTEMS: All systems are reviewed, pertinent positive as mentioned. HISTORY OF PRESENT ILLNESS: *------* unremarkable. PHYSICAL EXAMINATION GENERAL: Elderly male lying in the emergency room on BiPAP, in no acute distress at present. VITAL SIGNS: Blood pressure 171/98, heart rate 63, respiratory rate 16, temperature 98. HEENT: Normocephalic atraumatic, corneal opacity right eye. NECK: Supple, no JVD. CARDIAC: S1 and S2, regular rate and rhythm, positive murmur, no rub. LUNGS: Bilateral rhonchi, no rales appreciated, equal expansion. ABDOMEN: Obese, distended, soft, nontender, bowel sounds present. EXTREMITIES: No lower extremity edema. INTAKE AND OUTPUT: Not charted. LABORATORY DATA: WBC 12.4, hemoglobin 10.8, hematocrit 33, platelets 219. Sodium 131, potassium 5.7, chloride 97, CO2 19. BUN 87. Creatinine 8.1. Glucose 50, calcium 9.1, repeated calcium 9.9. AST 113. ALT 77. CPK 1537. Troponin 0.09. BNP 40,700. CHEST X-RAY: No acute disease. ASSESSMENT: 1. Hyperkaliemia. 2. Shortness of breath. 3. Obstructive sleep apnea. 4. Coronary artery disease. 5. Coronary artery bypass graft. 6. Cardiomyopathy. 7. End-stage renal disease. 8. Anemia of chronic kidney disease. 9. Leukocytosis, likely secondary to steroids. PLAN: 1. Urgent dialysis. 2. Ultrafiltrate as tolerated. 3. Pulmonary evaluation. 4. Sleep study. 5. Close outpatient following. Thank you for the courtesy of this consultation. We will follow this patient closely. Virginia Rios MD
[2017-05-04] MEDS: Insulin Lispro (humaLOG) MIX 75/25(10 ml) SC SCH ×3 (07:48→17:14)
[2017-05-04] MEDS: Insulin Reg-MEDIUM-Coverage SC SCH ×4 (08:39→21:31)
[2017-05-04] MEDS: Metoprolol Succinate 50 mg XL Tab PO SCH (09:43)
[2017-05-04] MEDS: MethylPREDNISolone 40 mg Vial IV SCH ×2 (09:43→21:04)
[2017-05-04] MEDS: Azithromycin 500MG/NS 250ml 500 MG/250 ML BAG IVPB SCH (09:44)
[2017-05-04] MEDS ORDERED: cefTRIAXone 1 gm 1 GM/100 ML BAG IVPB SCH (10:00)
--- NOTE | 2017-05-04 11:31 | HP ---
HISTORY OF PRESENT ILLNESS: The patient is a 66-year-old [place] male who was seen in hemodialysis *------*. He states he did not have a good sleep and feels very tired and when he went home, he was having cough, congestion, shortness of breath, chest pressure, although he was discharged yesterday, but he came to the emergency room for further evaluation. Denies any fever or chills. No history of nausea or vomiting. He is complaining of feeling tired and easily short of breath. PAST MEDICAL HISTORY: Significant for: 1. Insulin-dependent diabetes. 2. Hypertension. 3. End-stage renal disease on hemodialysis. 4. Coronary artery disease status post open heart surgery. ALLERGIES: HE IS NOT ALLERGIC TO ANY MEDICATIONS. MEDICATIONS AT HOME: The patient is on Eliquis 2.5 mg twice a day, amiodarone 200 mg twice a day, Enalapril 10 mg three times a day, clindamycin 600 mg q.8 hours, Sensipar 90 mg twice a day, he is taking Flomax 250 mg daily, aspirin 81 mg daily, midodrine 5 mg Saturday, Saturday, and Saturday, metoprolol 50 mg daily, lispro 75/25 10 unit before each meal, prednisone 10 mg daily, he was on zolpidem. SOCIAL HISTORY: He is , lives with his . Used to be a heavy smoker, but quit few years ago. PHYSICAL EXAMINATION GENERAL: He is sleepy, tired. VITAL SIGNS: He was afebrile, pulse 76, respirations 20, blood pressure 143/63. LUNGS: Bilateral few and expiratory rhonchi. HEART: S1 and S2 audible. ABDOMEN: Soft and nontender. No rebound and no guarding. NEUROLOGIC: He is awake and alert, communicative. He has facial puffiness. No lymphadenopathy. EXTREMITIES: Bilateral leg, no edema. LABORATORY DATA: WBC is 12.4, hemoglobin 10.8, hematocrit 32.9, and platelet is 219,000. PT 11.1, INR 1.03. Chemistry, sodium 131, potassium 5.7, chloride 97, CO2 is 19, BUN 87, creatinine 8.1. Blood sugars are 220, LDH is 66, CPK 1537. BNP is 40,000. He had x-ray of the chest done that is unremarkable. However, he had CT scan of the chest done on April 28, 2017 that showed fairly bronchial thickening and bronchiectasis, but no full consolidation. ASSESSMENT: 1. Exertional dyspnea, with asthmatic bronchitis, and bronchiectasis. 2. Coronary artery disease status post open heart surgery. 3. End-stage renal disease. 4. Rule out pulmonary edema. 5. Insulin-dependent diabetes. 6. Morbid obesity. 7. Hypertension. 8. Obstructive sleep apnea. 9. Peptic ulcer disease. PLAN: The patient is currently on amiodarone 200 mg twice a day. I will continue him on Eliquis for his history of atrial fibrillation. Currently, he is having pace rhythm. Monitor blood sugar. Started him on antibiotics. I will order for CT scan of the chest to rule out underlying pneumonia. Currently, the patient started on small dose of steroid. Continue him on nebulizer treatment. I will order for CT scan of the chest. If it is negative, he will be discharged to home on oral antibiotic and indicating normal steroid. Agusto Gan MD
[2017-05-04] MEDS ORDERED: Promethazine/Cod 6.25mg-10mg/5ml Syr UD PO STA (23:36)
[2017-05-05] MEDS: Levalbuterol 1.25 MG/3 ML Inhal Soln UD IH SCH ×4 (01:44→19:59)
[2017-05-05] MEDS: Pantoprazole 40 mg EC Tab PO SCH (05:33)
[2017-05-05] MEDS: Metoprolol Succinate 50 mg XL Tab PO SCH ×2 (06:08→10:03)
--- NOTE | 2017-05-05 06:08 | CP.PCM.PN ---
Subjective - Date & Time of Evaluation Date of Evaluation: 05/05/17 Time of Evaluation: 06:47 - Subjective Subjective: S:Patient was seen at bedside because his BP was elevated. 168/104. He has no complaints. Denies headache, dizziness. Medical record was reviewed. O: Last Vital Signs 3 Temp 97.7 F 05/04/17 08:21 Pulse 73 05/05/17 06:08 Resp 20 05/04/17 08:21 BP 168/104 H 05/05/17 06:08 Pulse Ox 100 05/04/17 08:21 Awake, alert, not in distress. LUNGS:Normal breathing pattern. A:Elevated blood pressure reading. P:Will give Toprol 50 mg po now instead of at 10:00AM. Objective - Vital Signs/Intake and Output Vital Signs (last 24 hours): Temp Pulse Resp BP Pulse Ox 97.7 F 64 20 149/79 100 05/04/17 08:21 05/04/17 17:13 05/04/17 08:21 05/04/17 17:13 05/04/17 08:21 Intake and Output: 05/04/17 05/05/17 18:59 06:59 Intake Total 540 360 Output Total 0 Balance 540 360 - Medications Medications: Current Medications Amiodarone HCl (Cordarone) 200 mg PO BID [facility] Last Admin: 05/04/17 17:13 Dose: 200 mg Apixaban (Eliquis) 2.5 mg PO BID [facility] PRN Reason: Protocol Last Admin: 05/04/17 17:12 Dose: 2.5 mg Aspirin (Ecotrin) 81 mg PO DAILY [facility] Last Admin: 05/04/17 09:43 Dose: 81 mg Cinacalcet (Sensipar) 90 mg PO BID [facility] Last Admin: 05/04/17 17:13 Dose: 90 mg Guaifenesin/Dextromethorphan (Robitussin Dm) 7.5 ml PO QID PRN PRN Reason: Cough Last Admin: 05/04/17 19:57 Dose: 7.5 ml Azithromycin (Zithromax 500mg In Ns) 500 mg in 250 mls @ 167 mls/hr IVPB DAILY [facility] PRN Reason: Protocol Last Admin: 05/04/17 09:44 Dose: 167 mls/hr Ceftriaxone Sodium (Rocephin 1 Gram Ivpb) 1 gm in 100 mls @ 100 mls/hr IVPB DAILY [facility] PRN Reason: Protocol Insulin Human Regular (Humulin R Med) 0 units SC ACHS [facility] PRN Reason: Protocol Last Admin: 05/04/17 21:31 Dose: Not Given Insulin Lispro Protam/Lispro Human (Humalog Mix 75/25) 10 units SC TID [facility] Last Admin: 05/04/17 17:14 Dose: 10 u Levalbuterol HCl (Xopenex) 1.25 mg IH [id number] [facility] Last Admin: 05/05/17 01:44 Dose: 1.25 mg Lisinopril (Zestril) 20 mg PO DAILY [facility] Last Admin: 05/04/17 09:43 Dose: 20 mg Methylprednisolone (Solu-Medrol) 30 mg IV Q12 [facility] Last Admin: 05/04/17 21:04 Dose: 30 mg Metoprolol Succinate (Toprol Xl) 50 mg PO DAILY [facility] Last Admin: 05/04/17 09:43 Dose: 50 mg Midodrine (Proamatine) 5 mg PO MWF PRN PRN Reason: as needed for bp below 100/60 Pantoprazole Sodium (Protonix Ec Tab) 40 mg PO 0630 [facility] Last Admin: 05/05/17 05:33 Dose: 40 mg Sevelamer HCl (Renagel) 5,600 mg PO WM [facility] Last Admin: 05/04/17 17:11 Dose: 5,600 mg Zolpidem Tartrate (Ambien) 10 mg PO HS [facility] PRN Reason: Protocol Last Admin: 05/04/17 21:04 Dose: 10 mg - Labs Labs: PT 11.1 Seconds (9.9-11.8) 05/03/17 06:07 INR 1.03 (0.93-1.08) 05/03/17 06:07 APTT 24.4 Seconds (23.7-30.8) 05/03/17 06:07
[2017-05-05] MEDS: Insulin Reg-MEDIUM-Coverage SC SCH ×4 (08:27→22:05)
--- NOTE | 2017-05-05 08:53 | CP.PCM.PN ---
Subjective - Date & Time of Evaluation Date of Evaluation: 05/05/17 Time of Evaluation: 08:15 - Subjective Subjective: Patient has a L arm alert and has very poor veins.He needs iv access Objective - Vital Signs/Intake and Output Vital Signs (last 24 hours): Temp Pulse Resp BP Pulse Ox 98.1 F 73 20 168/104 H 100 05/05/17 07:56 05/05/17 07:56 05/05/17 07:56 05/05/17 06:08 05/05/17 07:56 Intake and Output: 05/05/17 05/05/17 06:59 18:59 Intake Total 710 Balance 710 - Medications Medications: Current Medications Amiodarone HCl (Cordarone) 200 mg PO BID [facility] Last Admin: 05/04/17 17:13 Dose: 200 mg Apixaban (Eliquis) 2.5 mg PO BID [facility] PRN Reason: Protocol Last Admin: 05/04/17 17:12 Dose: 2.5 mg Aspirin (Ecotrin) 81 mg PO DAILY [facility] Last Admin: 05/04/17 09:43 Dose: 81 mg Cinacalcet (Sensipar) 90 mg PO BID [facility] Last Admin: 05/04/17 17:13 Dose: 90 mg Guaifenesin/Dextromethorphan (Robitussin Dm) 7.5 ml PO QID PRN PRN Reason: Cough Last Admin: 05/04/17 19:57 Dose: 7.5 ml Azithromycin (Zithromax 500mg In Ns) 500 mg in 250 mls @ 167 mls/hr IVPB DAILY [facility] PRN Reason: Protocol Last Admin: 05/04/17 09:44 Dose: 167 mls/hr Ceftriaxone Sodium (Rocephin 1 Gram Ivpb) 1 gm in 100 mls @ 100 mls/hr IVPB DAILY [facility] PRN Reason: Protocol Insulin Human Regular (Humulin R Med) 0 units SC ACHS [facility] PRN Reason: Protocol Last Admin: 05/05/17 08:27 Dose: Not Given Insulin Lispro Protam/Lispro Human (Humalog Mix 75/25) 10 units SC TID [facility] Last Admin: 05/04/17 17:14 Dose: 10 u Levalbuterol HCl (Xopenex) 1.25 mg IH [id number] [facility] Last Admin: 05/05/17 08:39 Dose: 1.25 mg Lisinopril (Zestril) 20 mg PO DAILY [facility] Last Admin: 05/04/17 09:43 Dose: 20 mg Methylprednisolone (Solu-Medrol) 30 mg IV Q12 [facility] Last Admin: 05/04/17 21:04 Dose: 30 mg Metoprolol Succinate (Toprol Xl) 50 mg PO DAILY [facility] Last Admin: 05/05/17 06:08 Dose: 50 mg Midodrine (Proamatine) 5 mg PO MWF PRN PRN Reason: as needed for bp below 100/60 Pantoprazole Sodium (Protonix Ec Tab) 40 mg PO 0630 [facility] Last Admin: 05/05/17 05:33 Dose: 40 mg Sevelamer HCl (Renagel) 5,600 mg PO WM [facility] Last Admin: 05/04/17 17:11 Dose: 5,600 mg Zolpidem Tartrate (Ambien) 10 mg PO HS [facility] PRN Reason: Protocol Last Admin: 05/04/17 21:04 Dose: 10 mg - Labs Labs: PT 11.1 Seconds (9.9-11.8) 05/03/17 06:07 INR 1.03 (0.93-1.08) 05/03/17 06:07 APTT 24.4 Seconds (23.7-30.8) 05/03/17 06:07 - Constitutional Appears: No Acute Distress Assessment and Plan - Assessment and Plan (Free Text) Assessment: Poor venous access Plan: Hep lock inserted in the R hand. # 24 angiocath used.
[2017-05-05] MEDS: cefTRIAXone 1 gm 1 GM/100 ML BAG IVPB SCH ×2 (10:03→11:57)
[2017-05-05] MEDS: MethylPREDNISolone 40 mg Vial IV SCH (10:03)
[2017-05-05] MEDS: Azithromycin 500MG/NS 250ml 500 MG/250 ML BAG IVPB SCH (10:04)
[2017-05-05] MEDS: Insulin Lispro (humaLOG) MIX 75/25(10 ml) SC SCH ×3 (10:16→17:29)
--- NOTE | 2017-05-05 10:38 | PN ---
DATE: 05/03/2017 SUBJECTIVE: The patient is 66-year-old, seen and examined, at the bedside. She states he feels a lot better. Still having cough and congestion with mucus production. PHYSICAL EXAMINATION: VITAL SIGNS: He is afebrile. Pulse 64, respirations 20, blood pressure 149/79. LUNGS: Bilateral rhonchi and expiratory rhonchi, with soft scattered crackles. HEART: S1 and S2 audible. ABDOMEN: Soft, obese, nontender. No rebound. No guarding. NEUROLOGIC: He is awake and alert. Able to ambulate with some help. walked him to the bathroom. LABORATORY DATA: His blood sugar is 219. He had a CT scan of the chest done that shows no focal pneumonia and mild bronchial wall thickening as compared to previous study, interval increase in bilateral atelectasis. ASSESSMENT: 1. Probably fluid overload. 2. Asthmatic bronchitis and bronchiectasis. 3. Morbid obesity. 4. Obstructive sleep apnea. 5. End-stage renal disease, on hemodialysis. 6. Significant bilateral leg muscle wasting. 7. Insulin-dependent diabetes. 8. Coronary artery disease, status post open heart surgery. PLAN: Currently, the patient is on nebulizer treatment. We will continue him on amiodarone. He is on aspirin 81 daily. He is getting Eliquis. His pressure is being monitored. He is receiving IV steroid. He is on Xopenex and Zithromax. We will reevaluate the patient in the a.m. If he remains stable, possible discharge in the a.m. Agusto Gan MD
[2017-05-05] MEDS: guaiFENesin DM 100 mg-10 mg/5 ml UD PO PRN ×2 (11:53→19:58)
[2017-05-06] MEDS: Levalbuterol 1.25 MG/3 ML Inhal Soln UD IH SCH ×4 (02:31→19:19)
--- NOTE | 2017-05-06 04:44 | PN ---
DATE: SUBJECTIVE: The patient is a 66 years old, seen and examined, seems to be very sleepy, barely arousable. The patient states he could not sleep last night. He has a history of obstructive sleep apnea. The patient seems to be very agitated and uncomfortable, does not want to go home. He states he does not feel good at all. PHYSICAL EXAMINATION VITAL SIGNS: He is afebrile. Pulse 63, respirations 20, blood pressure 164/70. LUNGS: Bilateral few expiratory rhonchi. HEART: S1, S2 audible. ABDOMEN: Soft, obese, nontender. No rebound, no guarding. NEUROLOGIC: He is sleepy, but arousable. LABORATORY EXAM: Blood sugar 134. ASSESSMENT: 1. Severe sleep apnea. 2. Moderate obesity. 3. End-stage renal disease, on hemodialysis. 4. Hypertension. 5. Coronary artery disease, status post open heart surgery. 6. Bilateral basal atelectasis. 7. Insulin-dependent diabetes. PLAN: The patient is still short of breath, uncomfortable. On previous recent admission, he was schedule to have a sleep study done to have BiPAP approved, but the patient states he cannot sleep at all without BiPAP and he is reluctant to be discharged. He states he will come back right away because he does have difficulty breathing on minimal exertion. We will start him on BiPAP and later on if he becomes comfortable, he can be discharged. He will by *------* and have a sleep study done, we will arrange for BiPAP later on. Agusto Gan MD
[2017-05-06] MEDS: guaiFENesin DM 100 mg-10 mg/5 ml UD PO PRN ×3 (05:10→17:42)
[2017-05-06] MEDS: Pantoprazole 40 mg EC Tab PO SCH (06:11)
[2017-05-06 07:14] LABS: ALB/GLOB RATIO 1.4 (1.1-1.8); ALBUMIN 3.5 g/dL (3.0-4.8); CALCIUM 9.9 mg/dL (8.4-10.5); MAGNESIUM 2.5 mg/dL (1.7-2.2)
[2017-05-06 07:31] LABS: GRAN # 11.46 (1.4-6.5); GRAN % 86.3 % (50.0-68.0); HEMOGLOBIN 9.7 gm/dL (14.0-18.0); LYMPH % 7.4 % (22.0-35.0); MEAN CELL VOLUME 88.8 fL (80.0-105.0); MEAN CORPUSCULAR HEMOGLOBIN 30.2 pg (25.0-35.0); MEAN PLATELET VOLUME 10.1 fl (7.0-11.0); MONO # 0.8 (0.1-0.6); MONO % 6.3 % (1.0-6.0); PLATELET COUNT 247 10^3/uL (120.0-450.0); RBC 3.21 10^6/uL (3.5-6.1); RED CELL DISTRIBUTION WIDTH 14.1 % (11.5-14.5); WHITE BLOOD COUNT 13.3 10^3/ul (4.5-11.0)
[2017-05-06] MEDS: Insulin Reg-MEDIUM-Coverage SC SCH ×3 (08:01→17:42)
[2017-05-06] MEDS ORDERED: levoFLOXacin 500 MG TAB PO SCH (10:00)
[2017-05-06] MEDS: Insulin Lispro (humaLOG) MIX 75/25(10 ml) SC SCH ×3 (11:31→18:07)
--- NOTE | 2017-05-06 11:36 | CON ---
DATE: 05/05/2017 REFERRING PHYSICIAN: Dr. Gan REASON FOR CONSULT: Obstructive sleep apnea syndrome, may have obesity hypoventilation syndrome, chronic lung disease. HISTORY OF PRESENT ILLNESS: This is a 66-year-old gentleman, known to me from previous admission, just recently discharged home. He has had multiple medical issues including insulin-dependent diabetes; renal failure, dialysis dependent; hypertension; coronary artery disease, history of coronary artery bypass surgery; bronchiectasis; oropharyngeal dysphagia; suspected sleep apnea syndrome, just recently discharged home with instruction to taper the dose of steroids, antibiotics, inhaled bronchodilator. He was home for 24 hours or so, did not feel well, came to emergency room. He was again dialyzed, started on bronchodilator, feels better. Has a loud snoring at nighttime, daytime sleepy and tired. Still has some surplus sputum production. No hemoptysis, hematemesis, or hematuria. PAST MEDICAL HISTORY: Chronic obstructive lung disease, may have obstructive sleep apnea syndrome, morbid obesity, may have hypoventilation syndrome, insulin-dependent diabetes, hypertension, renal failure, dialysis dependent, coronary artery disease. ALLERGIES: None known. SOCIAL HISTORY: Stopped smoking 9 years ago, denied any alcohol use. FAMILY HISTORY: No significant cardiopulmonary disease reported. MEDICATIONS: He is on Ambien 10 mg at bedtime; amiodarone 200 mg twice a day; Ecotrin 81 mg daily; Eliquis 2.5 mg daily; insulin coverage; Levaquin 500 mg daily was given today and then 250 mg every 48 hours; prednisone 20 mg twice a day; midodrine 5 mg Saturday, Saturday, Saturday; Protonix 40 mg daily; Renagel with meals; Robitussin DM 7.5 mg q.i.d. p.r.n.; Sensipar 90 mg twice a day; Toprol-XL 50 mg daily; Xopenex inhaled every 6 hours; and Zestril 20 mg daily. REVIEW OF SYSTEMS: No headache, has some rhinitis, cough, shortness of breath. Clear sputum production. No chest pain, no nausea, no vomiting and no diarrhea. No significant leg swelling. PHYSICAL EXAMINATION GENERAL: Sitting at the side of the bed, mild distress with cough. VITAL SIGNS: Temperature is 98, heart rate is 73, respiratory rate is 20, blood pressure 146/97, pulse ox 100% on nasal cannula. HEENT: Moist mucous membranes, crowded airway. Mallampati score is 4. NECK: Short, thick neck. LUNGS: Has scattered rhonchi. HEART: S1 and S2. ABDOMEN: Soft, nontender. No organomegaly. EXTREMITIES: There is no edema. NEUROLOGIC: He is awake, alert. Follows simple commands. LABORATORY DATA: Hemoglobin 10.8, hematocrit 32.9, WBC 12.4, platelet count is 219. INR 1.03, PTT is 24. Blood sugar is 134. Sodium 131, potassium 5.7, chloride 97, bicarbonate 219, BUN 87, creatinine 8.1, glucose 257. AST of 113, ALT 77. Troponin less than 0.01. ProBNP 14,700. Microbiology; blood culture has been negative. He had a CAT scan of the chest done, which suggested no bronchiolitis. IMPRESSION AND PLAN: Chronic obstructive lung disease, bronchiectasis and bronchiolitis, oropharyngeal dysphagia, on modified diet, may have chronic aspiration with bronchitis, hypertension, renal failure, dialysis dependent, diabetes, history of colon cancer, coronary artery disease, history of coronary bypass surgery, history of cardiac arrhythmia requiring pacemaker, may have sleep apnea syndrome, suspected hypoventilation syndrome. Case discussed with nursing staff, spoke to the patient in detail. We will place for a BiPAP tonight. Continue antibiotics, bronchodilator, gastric prophylaxis, DVT prophylaxis. Upon discharge, we will do a 10-day sleep study to qualify him for a BiPAP, and we will follow with you. Crescencio Daniels MD
[2017-05-06] MEDS: Metoprolol Succinate 50 mg XL Tab PO SCH (11:46)
[2017-05-06 17:46] VITALS: BP 143/68; PULSE 70
[2017-05-06 18:01] VITALS: TEMP 97.6; O2SAT 95
--- NOTE | 2017-05-07 01:57 | PN ---
DATE: 05/06/2017 SUBJECTIVE: The patient is seen sitting up in bed. is at bedside. He feels better. His shortness of breath is much improved. He denies any chest pain, palpitations. He still has hypoxia/drop in O2 sats when he walks. PHYSICAL EXAMINATION VITAL SIGNS: Blood pressure 117/76, heart rate 63, respiratory rate 30, temperature 98.1. HEENT: Normocephalic and atraumatic. NECK: Supple. No JVD. LUNGS: Bilateral equal air entry, bilateral equal expansion. CARDIAC: S1 and S2, regular rate and rhythm, no murmur, no rub. ABDOMEN: Obese, distended, soft, nontender, bowel sounds presents. EXTREMITIES: No lower extremity edema. INTAKE AND OUTPUT: Not charted. LABORATORY DATA: WBC 13.3, hemoglobin 9.7, hematocrit 29, platelets 247. Sodium 130, potassium 6.3, chloride 99, CO2 of 17, BUN 116, creatinine 9.8, glucose 116, calcium 9.9, phosphorus 6.0, magnesium 2.5. AST 77, ALT 68. Albumin 3.5. ASSESSMENT: 1. End-stage renal disease. 2. Hyperkalemia. 3. Hyponatremia. 4. Hyperphosphatemia. 5. Elevated liver function tests. 6. Sleep apnea. 7. Hypoxia. PLAN: 1. The patient received 4 hours of dialysis, expect potassium and sodium to be corrected. 2. Increase phosphate binders. 3. Increase ultrafiltration as tolerated. 4. Respiratory treatments/sleep study/BiPAP as per Pulmonary. Virginia Rios MD
--- NOTE | 2017-05-07 02:52 | PN ---
DATE: 05/06/2017 PULMONARY PROGRESS NOTE REFERRING PHYSICIAN: Dr. Gan. SUBJECTIVE: Sitting at the side of the bed. Night was unremarkable, tolerated BiPAP well, feels better. Decreased cough, decreased shortness of breath. No nausea, no vomiting, no diarrhea, leg pain, or leg swelling. PHYSICAL EXAMINATION GENERAL: In no acute distress. VITAL SIGNS: Temp is 98, heart rate 70, respiratory rate 20, blood pressure 143/68, O2 sat 95% on 2 L of nasal cannula. HEENT: Moist mucous membranes. Crowded airway. Mallampati score is 4. NECK: Supple. No JVD. HEART: S1, S2. LUNGS: Scattered rhonchi. ABDOMEN: Soft and nontender. No organomegaly. EXTREMITIES: No edema. NEUROLOGIC: Awake and alert, follows simple commands. LABORATORY DATA: Shows hemoglobin 9.7, hematocrit 28.5, WBC 13.3, platelets 247. Sodium 130, potassium 6.3, chloride 99, bicarbonate 17, BUN 116, creatinine 9.8, calcium 9.9, phosphorous 6.0, magnesium 2.5, AST 77, ALT 68, alk phos 91, albumin 3.5. Microbiology; blood culture has been negative, no growth. MEDICATIONS: He is on Ambien 10 mg at bedtime p.r.n., amiodarone 200 mg twice a day, Ecotrin 81 mg daily, Eliquis 2.5 mg twice a day, insulin coverage, Levaquin 250 mg q.48 hour, prednisone 20 mg twice a day, midodrine 5 mg a day Saturday and Saturday, Protonix 40 mg daily, Renagel by mouth with the meals, Robitussin DM 7.5 mg q.i.d. p.r.n., Sensipar 90 mg twice a day, Toprol-XL 50 mg daily, Xopenex inhaler q.6 hours, Zestril 20 mg daily. IMPRESSION: 1. Chronic obstructive lung disease. 2. Bronchiectasis. 3. Bronchiolitis. 4. Oropharyngeal dysphagia, modified diet. 5. Chronic aspiration with bronchitis. 6. Hypertension. 7. Renal failure. 8. Dialysis dependent. 9. Diabetes. 10. History of colon cancer. 11. Coronary artery disease. 12. History of coronary bypass surgery. 13. Cardiac arrhythmia, requiring pacemaker. 14. High risk for sleep apnea syndrome. 15. Also suspected hypoventilation syndrome. PLAN: Spoke to sleep center, schedule the patient for outpatient sleep study. They will have *------* CPAP. I believe, he will be going home today. We will taper dose of steroids, antibiotics, inhaled bronchodilators. Spoke to the patient and . All the questions answered. Fall precaution. Thank you and we will follow up with you. Crescencio Daniels MD
--- NOTE | 2017-05-07 07:42 | DS ---
HISTORY OF PRESENT ILLNESS: The patient is 66 years old [place] male who was admitted initially with cough, congestion, and shortness of breath. He was evaluated by inspector aide and plan was to do sleep study as outpatient to arrange for BiPAP, but the patient felt very uncomfortable as we stated has not been sleeping well, so his discharge was held last night, because he could not sleep the previous night. He was given BiPAP. He received dialysis overnight and he slept very well. He was given dialysis this morning. He stated he feel million time better and he is ready to go home today. PHYSICAL EXAMINATION: VITAL SIGNS: He is afebrile. Pulse is 63, respirations are 22,and pulse oximetry at rest is 86%. LUNGS: Bilateral fair air flow. Diffusely decreased breath sounds. HEART: S1 and S2 audible. ABDOMEN: Soft and nontender. No rebound. Obese. No hepatosplenomegaly. NEUROLOGIC: The patient is awake and alert and communicative. LABORATORY EXAM: WBC of 13.3, hemoglobin of 9.7, hematocrit of 28.5, and platelets of 247,000. Chemistries: Sodium is 130, potassium is 6.3, chloride is 99, CO2 is 17, BUN is 116, creatinine is 1.9, and blood sugar of 81. ASSESSMENT AND PLAN: 1. Morbid obesity. 2. Status post pulmonary edema. 3. Chronic obstructive pulmonary disease with hypoxia. 4. Bronchospasm. 5. End-stage renal disease on hemodialysis. 6. Bilateral basal atelectasis. 7. Oropharyngeal dysphagia. 8. Peptic ulcer disease. 9. Status post pacemaker and defibrillator placement. PLAN: For now, we have given the patient nebulizer treatment, nebulizer solution and arranged for home oxygen until he gets his sleep study done followed by BiPAP machine and he will resume his medication. He is on Eliquis for chronic atrial fibrillation. He is getting amiodarone and enalapril. He is on Sensipar, aspirin, midodrine on the day of dialysis, and he is on metoprolol. He takes insulin for his diabetes that he will continue and then he will follow up with his PMD as outpatient. Agusto Gan MD
== END 2017-05-06 21:45 | disposition home or self-care (01) ==
LOC: ED 05:38 → UNDOADMOB 06:01 → EROBSV 06:01 → ERH 13:17 → EROBSV 13:24 → ERH 13:24 → 3RSO 15:46
PROVIDERS: ADMIT Internal Medicine; ATTEND Internal Medicine
DX: J45.901 Unspecified asthma with (acute) exacerbation (principal); J44.1 Chronic obstructive pulmonary disease with (acute) exacerbation; J44.0 Chronic obstructive pulmonary disease with (acute) lower respiratory infection; J47.0 Bronchiectasis with acute lower respiratory infection; J98.11 Atelectasis; K21.9 Gastro-esophageal reflux disease without esophagitis; K27.9 Peptic ulcer, site unspecified, unspecified as acute or chronic, without hemorrhage or perforation; M62.50 Muscle wasting and atrophy, not elsewhere classified, unspecified site; N18.6 End stage renal disease; R09.02 Hypoxemia; R13.12 Dysphagia, oropharyngeal phase; T38.0X5A Adverse effect of glucocorticoids and synthetic analogues, initial encounter; Z79.01 Long term (current) use of anticoagulants; Z79.4 Long term (current) use of insulin; Z79.82 Long term (current) use of aspirin; Z79.899 Other long term (current) drug therapy; Z82.49 Family history of ischemic heart disease and other diseases of the circulatory system; Z83.3 Family history of diabetes mellitus; J21.9 Acute bronchiolitis, unspecified; I49.9 Cardiac arrhythmia, unspecified; I42.9 Cardiomyopathy, unspecified; I25.10 Atherosclerotic heart disease of native coronary artery without angina pectoris; I12.0 Hypertensive chronic kidney disease with stage 5 chronic kidney disease or end stage renal disease; D63.1 Anemia in chronic kidney disease; E11.22 Type 2 diabetes mellitus with diabetic chronic kidney disease; E66.01 Morbid (severe) obesity due to excess calories; E83.39 Other disorders of phosphorus metabolism; E87.1 Hypo-osmolality and hyponatremia; E87.5 Hyperkalemia; E87.70 Fluid overload, unspecified; G47.33 Obstructive sleep apnea (adult) (pediatric); Z85.038 Personal history of other malignant neoplasm of large intestine; Z87.891 Personal history of nicotine dependence; Z90.49 Acquired absence of other specified parts of digestive tract; Z95.0 Presence of cardiac pacemaker; Z95.1 Presence of aortocoronary bypass graft; Z99.2 Dependence on renal dialysis; R40.2412 Glasgow coma scale score 13-15, at arrival to emergency department; I48.2 Chronic atrial fibrillation; R06.89 Other abnormalities of breathing
CPT/HCPCS: 36415; 71010; 71250; 80053; 82550; 82553; 82948; 83615; 83735; 83880; 84100; 84484; 85025; 85610; 85730; 87040; 93005; 94640; 94660; 96365; 96366; 96367; 96368; 96375; 96376; 99285; G0378; J0456; J0696; J2920; J2930

== ENCOUNTER 2017-05-07 16:26 | Observation (INO) | payer MEDICARE ==
[2017-05-07 16:30] VITALS: BMI 27.0
[2017-05-07] MEDS ORDERED: Ipratropium 0.02% Inhal Soln (0.5 mg/2.5 ml) UD IH STA (17:39)
[2017-05-07] MEDS ORDERED: Levalbuterol 1.25 MG/3 ML Inhal Soln UD IH STA (17:39)
[2017-05-07] MEDS ORDERED: guaiFENesin 200 mg/10 ml Syrup UD PO STA (17:39)
--- NOTE | 2017-05-07 17:55 | ED PDOC ---
Arrival/HPI - General Chief Complaint: Weakness/Neurological Deficit Time Seen by Provider: 05/07/17 16:30 Historian: Patient - History of Present Illness Narrative History of Present Illness (Text): 05/07/17 17:30 Benny Emerson is a 66 year old male, whose past medical history includes DM , hypertension, ESRD on hemodialysis (M,W,F - last HD yesterday), and CAD/CABG, who presents to the Emergency department brought in by EMS complaining of weakness. Patient reports that this morning he was feeling normal, but in the afternoon he began to feel weakness in both legs and mild shortness of breath. He was concerned his potassium level was high, and during his last dialysis yesterday, he did not reach his dry weight. Patient reports currently feeling better and his breathing has improved. Patient denies chest pain, headache, fever, chills, cough, back pain, nausea, vomiting, diarrhea, abdominal pain, or other complaints. Time/Duration: 4-6 hours Symptom Onset: Sudden Symptom Course: Improving Activities at Onset: Light Modifying Factors (Text): None Context: Walking, Home Associated Symptoms (Text): had shortness of breath but currently improved Past Medical History - Provider Review Nursing Documentation Reviewed: Yes - Cardiac Hx Cardiac Disorders: Yes Hx Hypertension: Yes Hx Internal Defibrillator: Yes Hx Pacemaker: Yes Other/Comment: open heart 2002 - Pulmonary Hx Lung Cancer: No Hx Pulmonary Embolism: No - HEENT Hx Blind: Yes (legally) - Renal Hx Dialysis: Yes Date of Last Dialysis Treatment: 05/03/17 Hx Renal Failure: Yes - Endocrine/Metabolic Hx Diabetes Mellitus Type 2: Yes - Hematological/Oncological Hx Cancer: Yes (colon) - Musculoskeletal/Rheumatological Hx Falls: Yes Hx Unsteady Gait: Yes - Gastrointestinal Hx Gastroesophageal Reflux: Yes Other/Comment: Colon CA 2003 - Psychiatric Hx Anxiety: Yes Hx Substance Use: No - Surgical History Hx Open Heart Surgery: Yes - Anesthesia Hx Anesthesia: Yes Hx Anesthesia Reactions: No Hx Malignant Hyperthermia: No Family/Social History - Physician Review Nursing Documentation Reviewed: Yes Family/Social History: Unknown Family HX Smoking Status: Never Smoked Hx Alcohol Use: No Hx Substance Use: No Allergies/Home Meds Allergies/Adverse Reactions: Allergies No Known Allergies Allergy (Verified 04/28/17 12:13) Home Medications: Home Meds Medication Instructions Recorded Confirmed Amiodarone HCl [Pacerone] 200 mg PO BID 04/28/17 05/07/17 Apixaban [Eliquis] 2.5 mg PO BID 04/28/17 05/07/17 Aspirin [Ecotrin] 81 mg PO DAILY 04/28/17 05/07/17 Enalapril Maleate [Vasotec] 10 mg PO TID 04/28/17 05/07/17 Sevelamer Carbonate [Renvela] 7 tab PO TID 04/28/17 05/07/17 Midodrine [Proamatine] 5 mg PO MWF PRN 04/29/17 05/07/17 Breo Ellipta 200-25 Mcg INH 1 puff DAILY 05/02/17 05/07/17 Proair Hfa 2 puff PO QID 05/02/17 05/07/17 Insulin Lispro Mix 75/25 [HumaLOG 10 units SC TID 05/07/17 05/07/17 Mix 75/25] Methylprednisolone [Medrol Dose 4 mg PO DAILY 05/07/17 05/07/17 Pack (21 tabs)] Review of Systems - Review of Systems Constitutional: Fatigue. absent: Fevers Eyes: Other (blind on right eye) ENT: absent: Sore Throat Respiratory: SOB Cardiovascular: absent: Chest Pain Gastrointestinal: absent: Abdominal Pain, Diarrhea, Nausea, Vomiting Genitourinary Male: Normal Musculoskeletal: Other (lower extremity weakness) Skin: Normal Neurological: Normal Endocrine: Normal Hemo/Lymphatic: Normal Psychiatric: Normal Physical Exam Vital Signs Reviewed: Yes Vital Signs Temp Pulse Resp BP Pulse Ox 05/07/17 18:21 73 18 131/83 96 05/07/17 16:27 97.4 F L 73 18 133/72 97 Temperature: Afebrile Blood Pressure: Normal Pulse: Regular Respiratory Rate: Normal Appearance: Positive for: Well-Appearing, Non-Toxic, Comfortable Pain Distress: None Mental Status: Positive for: Alert and Oriented X 3 - Systems Exam Head: Present: Atraumatic, Normocephalic Pupils: Present: PERRL, Other (blind right eye) Conjunctiva: Present: Normal Mouth: Present: Moist Mucous Membranes Pharnyx: Present: Normal. No: ERYTHEMA, EXUDATE, Peritonsilar Swelling Neck: Present: Normal Range of Motion, JVD (mild) Respiratory/Chest: Present: Clear to Auscultation, Good Air Exchange. No: Respiratory Distress, Accessory Muscle Use Cardiovascular: Present: Regular Rate and Rhythm, Normal S1, S2. No: Murmurs Abdomen: Present: Normal Bowel Sounds. No: Tenderness, Distention, Peritoneal Signs Upper Extremity: Present: Normal Inspection. No: Cyanosis, Edema Lower Extremity: Present: Normal Inspection. No: Edema Neurological: Present: GCS=15, CN II-XII Intact, Speech Normal Skin: Present: Warm, Dry, Normal Color. No: Rashes Psychiatric: Present: Alert, Oriented x 3, Normal Insight, Normal Concentration Medical Decision Making ED Course and Treatment: 05/07/17 17:30 Impression: 66 year old male with weakness on lower extremities. Differential Diagnosis included but are not limited to: Hyperkalemia vs acs Plan: -- EKG -- Chest X-ray -- Labs -- Atrovent, Robitussin, and Xopenex -- Reassess and disposition Progress Notes: EKG: Ordered, reviewed, and independently interpreted the EKG. Rate : BPM Rhythm : NSR Interpretation : No ST-segment elevations or depressions, no T-wave inversions, normal intervals. Comparison : No previous EKG for comparison. 05/07/17 19:00 Chest X-ray: Creator : GWENDOLYN DUNCAN MD COMPARISON: 05/03/2017. FINDINGS: LUNGS: The lungs are clear. PLEURA: No significant pleural effusion identified, no pneumothorax apparent. CARDIOVASCULAR: There is mild cardiomegaly. Status post CABG. There is stable position of a right-sided permanent pacing device. OSSEOUS STRUCTURES: No significant abnormalities. VISUALIZED UPPER ABDOMEN: Normal. OTHER FINDINGS: There is chronic elevation of the right hemidiaphragm. IMPRESSION: No acute findings. EKG: afib @ 70 with PVC with LAD with QRS of 182; no new changes c/w previous which was paced on 04/28/17. 05/07/17 20:27 Patient with noted history with EKG results as noted. Labs showing K of 6.1; given kayexalate. Given that patient was symptomatic, discussed with Dr. Rios , who agreed with plan to administer several doses of kayexalate overnight with patient on tele till HD in the am, since HD could not be arranged tonight. 05/07/17 20:[address] Lauren for placement on her service. - Lab Interpretations Lab Results: 05/07/17 17:36 05/07/17 17:36 Lab Results 05/07/17 17:36: Sodium 131 L, Potassium 6.1 H*, Chloride 94 L, Carbon Dioxide 22 , Anion Gap 21 H, BUN 95 H, Creatinine 8.6 H*, Est GFR ( Amer) 8, Est GFR (Non-Af Amer) 6, Random Glucose 140 H, Calcium 9.2, Magnesium 2.4 H, Total Bilirubin 1.0, AST 63 H, ALT 66 H, Alkaline Phosphatase 97, Lactate Dehydrogenase 764 H, Total Creatine Kinase 760 H, CK-MB (CK-2) 16.5 H, CK-MB (CK -2) % 2.2 L, Troponin I 0.07 D, Total Protein 5.8, Albumin 3.3, Globulin 2.5, Albumin/Globulin Ratio 1.3, Lipase 145 05/07/17 17:36: WBC 11.9 H, RBC 3.08 L, Hgb 9.0 L, Hct 27.5 L, MCV 89.3, MCH 29.2, MCHC 32.7, RDW 14.2, Plt Count 216, MPV 9.9, Gran % 86.1 H, Lymph % (Auto ) 6.8 L, Carbon % (Auto) 7.1 H, Eos % (Auto) 0.0 L, Baso % (Auto) 0.0, Gran # 10.22 H, Lymph # 0.8 L, Carbon # 0.8 H, Eos # 0.0, Baso # 0.00 I have reviewed the lab results: Yes - RAD Interpretation Radiology Orders: 05/07/17 17:36 CHEST PORTABLE [RAD] Stat Hydrologist: Radiologist - EKG Interpretation Interpreted by ED Physician: Yes Type: 12 lead EKG - Medication Orders Current Medication Orders: Sodium Polystyrene Sulfonate (Kayexalate Oral Susp) 30 gm PO ONCE ONE Stop: 05/07/17 23:01 Discontinued Medications Guaifenesin (Robitussin) 400 mg PO ONCE STA Stop: 05/07/17 17:40 Last Admin: 05/07/17 17:48 Dose: 400 mg Ipratropium [place] (Atrovent) 0.5 mg IH STAT STA Stop: 05/07/17 17:40 Last Admin: 05/07/17 17:40 Dose: 0.5 mg Levalbuterol HCl (Xopenex) 1.25 mg IH STAT STA Stop: 05/07/17 17:40 Last Admin: 05/07/17 17:49 Dose: 1.25 mg Sodium Polystyrene Sulfonate (Kayexalate Oral Susp) 30 gm PO STAT STA Stop: 05/07/17 18:26 Last Admin: 05/07/17 18:55 Dose: 30 gm - PA / [employer] PROFESSOR / Resident Statement MD/DO has reviewed & agrees with the documentation as recorded. MD/DO has examined the patient and agrees with the treatment plan. - Scribe Statement The provider has reviewed the documentation as recorded by the Scribe 05/07/2017 Yancy Brothers Provider Scribe Attestation: All medical record entries made by the Scribe were at my direction and personally dictated by me. I have reviewed the chart and agree that the record accurately reflects my personal performance of the history, physical exam, medical decision making, and the department course for this patient. I have also personally directed, reviewed, and agree with the discharge instructions and disposition. Disposition/Present on Arrival - Present on Arrival Any Indicators Present on Arrival: No History of DVT/PE: No History of Uncontrolled Diabetes: No Urinary Catheter: No History of Decub. Ulcer: No History Surgical Site Infection Following: None - Disposition Have Diagnosis and Disposition been Completed?: Yes Diagnosis: Hyperkalemia Disposition: HOSPITALIZED Disposition Time: 19:20 Patient Plan: Observation, Telemetry Condition: FAIR
[2017-05-07 18:06] LABS: GRAN # 10.22 (1.4-6.5); GRAN % 86.1 % (50.0-68.0); LYMPH # 0.8 (1.2-3.4); LYMPH % 6.8 % (22.0-35.0); MEAN CELL VOLUME 89.3 fL (80.0-105.0); MEAN CORPUSCULAR HEMOGLOBIN 29.2 pg (25.0-35.0); MEAN CORPUSCULAR HGB CONC 32.7 g/dl (31.0-37.0); MEAN PLATELET VOLUME 9.9 fl (7.0-11.0); MONO # 0.8 (0.1-0.6); MONO % 7.1 % (1.0-6.0); PLATELET COUNT 216 10^3/uL (120.0-450.0); RBC 3.08 10^6/uL (3.5-6.1); RED CELL DISTRIBUTION WIDTH 14.2 % (11.5-14.5); WHITE BLOOD COUNT 11.9 10^3/ul (4.5-11.0)
[2017-05-07 18:12] LABS: ALB/GLOB RATIO 1.3 (1.1-1.8); ALBUMIN 3.3 g/dL (3.0-4.8); CALCIUM 9.2 mg/dL (8.4-10.5); MAGNESIUM 2.4 mg/dL (1.7-2.2)
[2017-05-07 18:23] LABS: TROPONIN I 0.07 ng/mL
[2017-05-07] MEDS ORDERED: Sod Polystyrene Sulf 15 gm/60 ml Oral Susp PO STA (18:25)
[2017-05-07 18:27] LABS: CK MB% 2.2 % (2.5-3.0); CK-MB 16.5 ng/mL (0.0-3.6)
--- NOTE | 2017-05-07 18:57 | RAD ---
HISTORY: generalized weakness COMPARISON: 05/03/2017. FINDINGS: LUNGS: The lungs are clear. PLEURA: No significant pleural effusion identified, no pneumothorax apparent. CARDIOVASCULAR: There is mild cardiomegaly. Status post CABG. There is stable position of a right-sided permanent pacing device. OSSEOUS STRUCTURES: No significant abnormalities. VISUALIZED UPPER ABDOMEN: Normal. OTHER FINDINGS: There is chronic elevation of the right hemidiaphragm. IMPRESSION: No acute findings.
[2017-05-07] MEDS ORDERED: Sod Polystyrene Sulf 15 gm/60 ml Oral Susp PO ONE (23:00)
[2017-05-07] MEDS ORDERED: guaiFENesin DM 100 mg-10 mg/5 ml UD PO PRN (23:48)
[2017-05-08] MEDS ORDERED: Pneumococcal 23-Valent Vaccine IM ONE (00:30)
[2017-05-08] MEDS: guaiFENesin DM 100 mg-10 mg/5 ml UD PO PRN ×2 (00:31→21:14)
[2017-05-08 00:57] LABS: TROPONIN I 0.06 ng/mL
[2017-05-08 01:01] LABS: CK MB% 2.2 % (2.5-3.0); CK-MB 15.4 ng/mL (0.0-3.6)
[2017-05-08 06:12] VITALS: RESP 20
[2017-05-08] MEDS: Insulin Lispro (humaLOG) MIX 75/25(10 ml) SC SCH ×3 (09:47→18:02)
[2017-05-08] MEDS: Nystatin 100,000 Units/ml Oral Susp 5 ml UD PO SCH ×5 (09:57→21:13)
[2017-05-08] MEDS: Metoprolol Succinate 50 mg XL Tab PO SCH (10:00)
--- NOTE | 2017-05-08 12:53 | CARD ---
APPROVED REPORT EKG Measurement Heart [id number] <Conclusion> Demand Ventricular pacemaker Intrinsic Rhythm is Atrial fibrillation Vonsider Lateral ischemia Inferior infarct, age undetermined Abnormal ECG
[2017-05-08 13:30] LABS: ALB/GLOB RATIO 1.3 (1.1-1.8); ALBUMIN 3.2 g/dL (3.0-4.8); MAGNESIUM 2.3 mg/dL (1.7-2.2)
[2017-05-08 13:50] LABS: BASO # 0.01 K/mm3 (0.0-2.0); BASO % 0.1 % (0.0-3.0); EOS # 0.1 (0.0-0.7); EOS % 1.1 % (1.5-5.0); GRAN # 9.45 (1.4-6.5); GRAN % 82.9 % (50.0-68.0); LYMPH # 0.9 (1.2-3.4); LYMPH % 8.3 % (22.0-35.0); MEAN CELL VOLUME 89.2 fL (80.0-105.0); MEAN CORPUSCULAR HEMOGLOBIN 30.5 pg (25.0-35.0); MEAN CORPUSCULAR HGB CONC 34.2 g/dl (31.0-37.0); MEAN PLATELET VOLUME 9.7 fl (7.0-11.0); MONO # 0.9 (0.1-0.6); MONO % 7.6 % (1.0-6.0); PLATELET COUNT 214 10^3/uL (120.0-450.0); RBC 2.95 10^6/uL (3.5-6.1); RED CELL DISTRIBUTION WIDTH 14.1 % (11.5-14.5); WHITE BLOOD COUNT 11.4 10^3/ul (4.5-11.0)
--- NOTE | 2017-05-08 19:55 | CP.PCM.HP ---
History of Present Illness - History of Present Illness History of Present Illness: A 66 yr old male with hx of IDDM, HTN, ESRD on HD, colon cancer , s\p colectomy CAD S\P CABG , obesity on meds came with c\o feeling weak.as per patient he started eating lot of other food which he not suppose to eat from saturday night to saturday,he felt potassium would be high,he came to ER labs noted k-6.2, recieved kayxalte 2 doses last night- 5.3 for HD today c\o cough as per he is 100 mg amiadarone bid from 200 - Present on Admission Any Indicators Present on Admission: No Review of Systems - Constitutional Constitutional: Fatigue, Snoring. absent: Chills, Fever, Night Sweats - EENT Eyes: Other Visual Disturbances Nose/Mouth/Throat: Dry Mouth, no Hoarsness, Sore Throat. absent: Nasal Congestion, Post Nasal Drip, Sinus Pain, Neck Pain - Cardiovascular Cardiovascular: Rapid Heart Rate. absent: Chest Pain, Dyspnea, Leg Edema, Pedal Edema - - EENT Eyes: Other Visual Disturbances Nose/Mouth/Throat: Dry Mouth, no Hoarsness, Sore Throat. absent: Nasal Congestion, Post Nasal Drip, Sinus Pain, Neck Pain - Cardiovascular Cardiovascular: Rapid Heart Rate. absent: Chest Pain, Dyspnea, Leg Edema, Pedal Edema - Respiratory Respiratory: Cough, Dyspnea on exertion for long time, Snoring, Chest Congestion , Excessive Mucous Production, Change in Mucous Color, Pain with Coughing. absent: Hemoptysis - Gastrointestinal Gastrointestinal: absent: Abdominal Pain, Constipation, Dysphagia, Nausea, Vomiting - Musculoskeletal Musculoskeletal: Arthralgias, Limited Range of Motion, Myalgias - Neurological Neurological: absent: Dizziness, Paresthesias - Psychiatric Psychiatric: absent: Change in Appetite, Depression, Mood Swings Past Patient History - Past Social History Smoking Status: Never Smoked - CARDIAC Hx Hypertension: Yes Hx Pacemaker: Yes - PULMONARY Hx Lung Cancer: No Hx Pulmonary Embolism: No - RENAL Hx Dialysis: Yes (M-W-F) - ENDOCRINE/METABOLIC Hx Diabetes Mellitus Type 2: Yes - HEMATOLOGICAL/ONCOLOGICAL Hx Cancer: Yes (colon) - MUSCULOSKELETAL/RHEUMATOLOGICAL Hx Falls: No - PSYCHIATRIC Hx Substance Use: No - SURGICAL HISTORY Hx Open Heart Surgery: Yes Other/Comment: Pacemaker/defib, colon removal(1 F) - ANESTHESIA Hx Anesthesia: Yes Hx Anesthesia Reactions: No Hx Malignant Hyperthermia: No Meds Allergies/Adverse Reactions: Allergies Allergy/AdvReac Type Severity Reaction Status Date / Time No Known Allergies Allergy Verified 05/07/17 12:13 Physical Exam - Constitutional Appears: not In Acute Distress - Head Exam Head Exam: ATRAUMATIC, NORMAL INSPECTION, NORMOCEPHALIC - Eye Exam Eye Exam: Normal appearance (right rye- blind) Additional comments: right eye blind - ENT Exam ENT Exam: Mucous Membranes Moist - Neck Exam Neck exam: Negative for: Lymphadenopathy, Tenderness - Respiratory Exam Respiratory Exam: no Accessory Muscle Use, no Rales, no Rhonchi, no Wheezes, no Respiratory Distress, no Stridor Additional comments: b\l all over - Cardiovascular Exam Cardiovascular Exam: Irregular Rhythm, Systolic Murmur - GI/Abdominal Exam GI & Abdominal Exam: Normal Bowel Sounds, Soft. absent: Tenderness Additional comments: obese - Extremities Exam Extremities exam: Positive for: full ROM. Negative for: pedal edema, pedal pulses present Additional comments: b\l leg scars right arm- bruise left arm bruit\A-F fistula - Back Exam Back exam: absent: paraspinal tenderness, vertebral tenderness - Neurological Exam Neurological exam: Alert, Normal Gait, Oriented x3 - Psychiatric Exam Psychiatric exam: Normal Mood - Skin Skin Exam: Intact, no new Petechiae - Additional Findings Additional findings: PM om chest wall - Additional Findings Additional findings: PM om chest wall Present on Admission - Present on Admission Any Indicators Present on Admission: No Past Patient History - Past Social History Smoking Status: Never Smoked - CARDIAC Hx Cardiac Disorders: Yes (CAD) Hx Hypertension: Yes Hx Internal Defibrillator: Yes Hx Pacemaker: Yes Other/Comment: open heart 2003 - PULMONARY Hx Lung Cancer: No Hx Pulmonary Embolism: No - NEUROLOGICAL Hx Neurological Disorder: No - HEENT Hx HEENT Problems: Yes Hx Blind: Yes (legally-DETACHED RETINA WITH SX) Hx Cataracts: Yes - RENAL Hx Chronic Kidney Disease: Yes Hx Dialysis: Yes Date of Last Dialysis Treatment: 05/06/17 Hx Renal Failure: Yes Other/Comment: LEFT FOREARM -SHUNT - ENDOCRINE/METABOLIC Hx Endocrine Disorders: Yes Hx Diabetes Mellitus Type 2: Yes - HEMATOLOGICAL/ONCOLOGICAL Hx Blood Disorders: Yes Hx Cancer: Yes (colon) - INTEGUMENTARY Hx Dermatological Problems: Yes (SKIN DRYNESS,ELONGATED SCAR TO RIGHT LEG. CABG) - MUSCULOSKELETAL/RHEUMATOLOGICAL Hx Musculoskeletal Disorders: Yes Hx Falls: Yes Hx Unsteady Gait: Yes (CANE) - GASTROINTESTINAL Hx Gastrointestinal Disorders: Yes Hx Gastroesophageal Reflux: Yes Other/Comment: Colon CA 2002-SURGERY - GENITOURINARY/GYNECOLOGICAL Hx Genitourinary Disorders: Yes (ANURIA) - PSYCHIATRIC Hx Psychophysiologic Disorder: Yes Hx Anxiety: Yes Hx Substance Use: No - SURGICAL HISTORY Hx Surgeries: Yes (COLON SURGERY,EYE SX-DETACHED RETINA,CATARACT SX,DEFIB) Hx Open Heart Surgery: Yes - ANESTHESIA Hx Anesthesia: Yes Hx Anesthesia Reactions: No Hx Malignant Hyperthermia: No Meds Allergies/Adverse Reactions: Allergies Allergy/AdvReac Type Severity Reaction Status Date / Time No Known Allergies Allergy Verified 05/08/17 00:08 Results - Vital Signs Recent Vital Signs: Last Vital Signs Temp 98.4 F 05/08/17 12:00 Pulse 74 05/08/17 17:39 Resp 20 05/08/17 12:00 BP 149/79 05/08/17 17:39 Pulse Ox 100 05/08/17 06:00 - Labs Result Diagrams: 05/08/17 13:13 05/08/17 13:13 Labs: Laboratory Results - last 24 hr 05/07/17 05/08/17 05/08/17 23:58 11:08 13:13 WBC 11.4 H RBC 2.95 L Hgb 9.0 L Hct 26.3 L MCV 89.2 MCH 30.5 MCHC 34.2 RDW 14.1 Plt Count 214 MPV 9.7 Gran % 82.9 H Lymph % (Auto) 8.3 L [place] % (Auto) 7.6 H Eos % (Auto) 1.1 L Baso % (Auto) 0.1 Gran # 9.45 H Lymph # 0.9 L [place] # 0.9 H Eos # 0.1 Baso # 0.01 Sodium Potassium 5.2 H Chloride Carbon Dioxide Anion Gap BUN Creatinine Est GFR ( Amer) Est GFR (Non-Af Amer) POC Glucose (mg/dL) 171 H Random Glucose Calcium Phosphorus Magnesium Total Bilirubin AST ALT Alkaline Phosphatase Lactate Dehydrogenase 711 H Total Creatine Kinase 701 H CK-MB (CK-2) 15.4 H CK-MB (CK-2) % 2.2 L Troponin I 0.06 Total Protein Albumin Globulin Albumin/Globulin Ratio TSH 3rd Generation 05/08/17 05/08/17 05/08/17 13:13 13:13 17:40 WBC RBC Hgb Hct MCV MCH MCHC RDW Plt Count MPV Gran % Lymph % (Auto) [place] % (Auto) Eos % (Auto) Baso % (Auto) Gran # Lymph # [place] # Eos # Baso # Sodium 131 L Potassium 5.4 H Chloride 98 Carbon Dioxide 20 L Anion Gap 18 BUN 103 H Creatinine 10.0 H* Est GFR ( Amer) 6 Est GFR (Non-Af Amer) 5 POC Glucose (mg/dL) 172 H Random Glucose 167 H Calcium 9.0 Phosphorus 5.3 H Magnesium 2.3 H Total Bilirubin 1.0 AST 53 ALT 61 H Alkaline Phosphatase 88 Lactate Dehydrogenase Total Creatine Kinase CK-MB (CK-2) CK-MB (CK-2) % Troponin I Total Protein 5.7 L Albumin 3.2 Globulin 2.4 Albumin/Globulin Ratio 1.3 TSH 3rd Generation 0.03 L - EKG Data EKG Interpreted by: Myself EKG shows normal: Sinus rhythm Rate: Normal - EKG Data When Compared to Previous EKG: No Significant Change - Imaging and Cardiology Chest x-ray Status: Report reviewed by me Assessment & Plan (1) Hyperkalemia Status: Acute Comment: HD today. to rpt K. discussed about diet precautions (2) Type 2 diabetes mellitus with hyperglycemia Status: Chronic (3) Cardiomyopathy Status: Chronic (4) Obesity (BMI 30.0-34.9) Status: Acute (5) HTN (hypertension) Status: Chronic (6) A-fib Status: Chronic - Assessment and Plan (Free Text) Plan: 1. resume all meds 2. continue with amiadarone 100 mg bid as per 3. accucheks achs low dose sliding scale 4. cough syrup 5. resume BP meds Decision To Admit - Pt Status Changed To: Hospital Disposition Of: Observation - . Bed Request Type: Telemetry Admitting Physician: Arlin Lauren
[2017-05-08 20:57] LABS: ALB/GLOB RATIO 1.2 (1.1-1.8); ALBUMIN 3.1 g/dL (3.0-4.8); CALCIUM 8.6 mg/dL (8.4-10.5)
[2017-05-09] MEDS: guaiFENesin DM 100 mg-10 mg/5 ml UD PO PRN ×2 (03:43→09:58)
--- NOTE | 2017-05-09 05:29 | CON ---
DATE: 05/08/2017 The patient is admitted per Dr. Arlin Lauren. REFERRING MD: Dr. Oliveros. REASON FOR CONSULTATION: To provide dialysis services for a patient known to my partner, Dr. Rios who presents to the emergency room with weakness and hyperkalemia. HISTORY OF PRESENT ILLNESS: The patient is a pleasant 66-year-old Citizen Of [place] male with a history of end-stage renal disease, on dialysis Saturday, Saturday, and Saturday. The patient had been dialyzing up at [facility] in [place]. He has been on dialysis for many years. The patient lives closer to our dialysis unit in [place] and would like to transfer here. He has been in and out of the hospital, receiving dialysis over the last several weeks, he has not been back in this dialysis unit for approximately 2 weeks. The patient presented to the emergency room with increased weakness and was found to be hyperkalemic with K of 6.1. He was treated with Kayexalate last night and is receiving his regular dialysis today. He would like to be discharged post-dialysis today. The patient would like to transfer his dialysis care over to Dr. Rios and myself, and not return back to [place]. PAST MEDICAL HISTORY: Significant for end-stage renal disease, on Saturday, Saturday, and Saturday dialysis, hypertension, history of NIDDM currently on insulin, history of ASHD, status post CABG 4 vessels in 2002, history of AICD and permanent pacemaker. History of secondary hyperparathyroidism. History of colon cancer, status post hemicolectomy. History of diabetic retinopathy. 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 History of diabetic neuropathy. MEDICATIONS: At home include that of Cleocin, Breo Ellipta, ProAir HFA, Medrol Dosepak, Robitussin, Renvela, ProAmatine, Toprol, Zestril, Humalog, Vasotec, Sensipar, Ecotrin, Eliquis, and amiodarone. ALLERGIES: THE PATIENT HAS NO KNOWN ALLERGIES TO MEDICATIONS. PRESENT MEDICATIONS IN THE HOSPITAL: Include that of lisinopril, Toprol, Sensipar, Robitussin-DM, Renagel, ProAmatine, nystatin, Medrol Dosepak, insulin, Eliquis, amiodarone, and aspirin. SOCIAL HISTORY: No history of cigarette smoking, no history of alcohol use. FAMILY HISTORY: Positive for hypertension, diabetes, history of chronic kidney disease. He had a sister who received a kidney transplant and was on dialysis secondary to diabetic nephropathy. REVIEW OF SYSTEMS: A 10-point systems reviewed with the patient, all negative except for what was noted above and noted in previous charts. PHYSICAL EXAMINATION: GENERAL: The patient is currently seen on dialysis. He is dialyzing on a 1.0 K bath. VITAL SIGNS: Blood pressure 152/85, temperature 98.4, respiratory rate 20 with a pulse of 86. HEENT: Shows him to be normocephalic and atraumatic. The patient is completely blind in the right eye and legally blind in the left eye. NECK: Supple. No neck vein distention. CHEST: Clear to auscultation and percussion. No rales, no rhonchi, and no wheezing. CARDIOVASCULAR: Shows regular rate and rhythm. Healed sternotomy scar. AICD with permanent pacemaker. No S3, No S4. No rub. No audible murmurs. ABDOMEN: Soft. Bowel sounds normal, No rebound. No guarding. No masses. BACK: No CVAT. No spinal tenderness. EXTREMITIES: Show left upper extremity AV fistula, which was cannulated. Excellent BFR. No lower extremity cyanosis, clubbing, or edema. \ NEUROLOGIC: Shows him to be alert and oriented. No gross focal motor deficits. Positive diabetic neuropathy by history. LABORATORY DATA AND IMAGING: Admitting chest x-ray showed no acute pulmonary disease. CBC; white blood cell count 11.9, today 11.4, hemoglobin stable at 9.0, and platelet count is 214,000. Chemistries showed sodium of 131, potassium of 6.1 on admission, 5.4 at the start of dialysis. CO2 is 20. BUN is 103 with a creatinine of 10.0. Glucose 167. Calcium 9.0. Phosphorous acceptable at 5.3 with magnesium of 2.3. Cardiac enzymes are flat at 0.07, 0.06. Mild elevation of his CPK 760 and 701, mild elevation of CPK-MB. TSH is 0.03. Lipase is normal. Albumin is 3.2. ASSESSMENT: 1. End-stage renal disease. The patient is on a Saturday, Saturday, and Saturday dialysis schedule, discussed with the staff at [facility]. The patient to be on [facility], not return to [place]. We will try and accommodate the patient and try and arrange a slot that is acceptable to him. 2. Hyperkaliemia, likely secondary to end-stage renal disease and dietary intake. The patient received 1 dose of Kayexalate last night, currently his potassium level is 5.4. 3. History of hypertension, blood pressure was controlled. 4. History of wvw-uqhqlwn-cmzpbvfcy diabetes mellitus, currently on insulin with acceptable blood sugar control. 5. History of diabetic nephropathy, retinopathy, and neuropathy. 6. History of atherosclerotic heart disease, status post coronary artery bypass graft 4 vessels in 2002, status post automatic implantable cardioverter-defibrillator and permanent peacemaker. 7. History of secondary hyperparathyroidism, being maintained on Sensipar and binder therapy. 8. History of anemia likely secondary to chronic kidney disease, on Aranesp/erythropoietin. 9. History of colon cancer, status post hemicolectomy. PLAN: 1. Discussed with the patient in detail. His most urgent issue is his dry hacking cough. I have given the patient a prescription for Phenergan With Codeine to use in an outpatient setting. He would like to be discharged later today. 2. I have discussed with the staff in [facility], we will try and accommodate patient in [place], so he does not have to travel back to [place]. His next dialysis will be Saturday. 3. In light of the patient's potassium level of 5.4, I will switch the patient over to a 2.0 K bath for the remainder of his dialysis treatment. 4. Continue medication for secondary hyperparathyroidism. 5. Continue erythropoietin on an as needed basis for anemia secondary to chronic kidney disease. Thank you for letting me part take and share in the care of our mutual patient. Wilian Gil MD [facility]
[2017-05-09 05:36] VITALS: O2SAT 97
[2017-05-09] MEDS: Nystatin 100,000 Units/ml Oral Susp 5 ml UD PO SCH (09:55)
[2017-05-09] MEDS: Insulin Lispro (humaLOG) MIX 75/25(10 ml) SC SCH (09:55)
[2017-05-09] MEDS: Metoprolol Succinate 50 mg XL Tab PO SCH (09:56)
[2017-05-09 11:46] VITALS: BP 145/70; PULSE 63; TEMP 98.2
--- NOTE | 2017-05-09 19:49 | PN ---
DATE: 05/09/2017 SUBJECTIVE: The patient is seen sitting in bed. He is awake and he is alert. He is feeling much better. He reports no weakness today. PHYSICAL EXAMINATION GENERAL: Obese elderly male sitting in bed. VITAL SIGNS: Blood pressure 145/70, heart rate 63, respiratory rate 20, temperature 98.2. HEENT: Normocephalic and atraumatic. NECK: Supple. No JVD. LUNGS: Bilateral rhonchi. Distant breath sounds. CARDIAC: S1 and S2. Regular rate and rhythm. Positive murmur. No rub. ABDOMEN: Obese, distended, soft, nontender. Bowel sounds present. EXTREMITIES: No lower extremity edema. INTAKE AND OUTPUT: Not charted. LABORATORY DATA: WBC 11, hemoglobin 9, hematocrit 26 and platelets 214. Sodium 134, potassium 3.9, chloride 96, CO2 of 27, BUN 49, creatinine 5.8, glucose 188, calcium 8.6 and albumin 3.1. MEDICATIONS: Aspirin, amiodarone, Eliquis, insulin, Solu-Medrol, ProAmatine, Renvela, Robitussin, Sensipar, Toprol XL and Zestril. ASSESSMENT AND PLAN: 1. Severe hyperkalemia, resolved. 2. Noncompliance. 3. End-stage renal disease. 4. Noninsulin dependent diabetes mellitus. 5. Hypertension. 6. Coronary artery disease. PLAN: 1. Long discussion with patient and regarding compliance with low potassium diet. 2. If potassium continues to be a problem, may need to discontinue the lisinopril. 3. Kayexalate 30 g p.r.n. 4. No objection to discharge. Virginia Rios MD
--- NOTE | 2017-05-09 21:10 | CP.PCM.PN ---
Subjective - Date & Time of Evaluation Date of Evaluation: 05/09/17 Time of Evaluation: 09:00 - Subjective Subjective: at bed side rpt K-3.9 no new complaints except cough,he has syrup at home c\o mouth sores BS better controlled Objective - Vital Signs/Intake and Output Vital Signs (last 24 hours): Temp Pulse Resp BP Pulse Ox 98.2 F 63 20 145/70 97 05/09/17 11:45 05/09/17 12:05 05/09/17 11:45 05/09/17 11:45 05/09/17 05:36 - Labs Labs: 05/08/17 13:13 05/08/17 20:35 - Additional Findings Additional findings: - Constitutional Appears: not In Acute Distress - Head Exam Head Exam: ATRAUMATIC, NORMAL INSPECTION, NORMOCEPHALIC - Eye Exam Eye Exam: Normal appearance (right rye- blind) Additional comments: right eye blind - ENT Exam ENT Exam: Mucous Membranes Moist - Neck Exam Neck exam: Negative for: Lymphadenopathy, Tenderness - Respiratory Exam Respiratory Exam: no Accessory Muscle Use, no Rales, no Rhonchi, no Wheezes, no Respiratory Distress, no Stridor Additional comments: b\l all over - Cardiovascular Exam Cardiovascular Exam: Irregular Rhythm, Systolic Murmur - GI/Abdominal Exam GI & Abdominal Exam: Normal Bowel Sounds, Soft. absent: Tenderness Additional comments: obese - Extremities Exam Extremities exam: Positive for: full ROM. Negative for: pedal edema, pedal pulses present Additional comments: b\l leg scars right arm- bruise left arm bruit\A-F fistula - Back Exam Back exam: absent: paraspinal tenderness, vertebral tenderness - Neurological Exam Neurological exam: Alert, Normal Gait, Oriented x3 - Psychiatric Exam Psychiatric exam: Normal Mood - Skin Skin Exam: Intact, no new Petechiae - Additional Findings Additional findings: PM om chest wall - Additional Findings Additional findings: PM om chest wall Assessment and Plan (1) Hyperkalemia Status: Resolved (2) Type 2 diabetes mellitus with hyperglycemia Status: Chronic (3) Cardiomyopathy Status: Chronic (4) Obesity (BMI 30.0-34.9) Status: Chronic (5) HTN (hypertension) Status: Chronic (6) A-fib Status: Chronic - Assessment and Plan (Free Text) Plan: advise to f\u cardiology consider d\c amiadarone due to lung condition
--- NOTE | 2017-05-09 21:12 | CP.PCM.DIS ---
Provider - Provider Date of Admission: 05/07/17 19:24 Attending physician: Arlin Lauren MD Primary care physician: Virginia Rios MD Time Spent in preparation of Discharge (in minutes): 30 Diagnosis - Discharge Diagnosis (1) Hyperkalemia Status: Resolved (2) Type 2 diabetes mellitus with hyperglycemia Status: Chronic (3) Cardiomyopathy Status: Chronic (4) Obesity (BMI 30.0-34.9) Status: Chronic (5) HTN (hypertension) Status: Chronic (6) A-fib Status: Chronic Hospital Course - Lab Results Lab Results: Most Recent Lab Values WBC 11.4 10^3/ul (4.5-11.0) H 05/08/17 13:13 RBC 2.95 10^6/uL (3.5-6.1) L 05/08/17 13:13 Hgb 9.0 gm/dL (14.0-18.0) L 05/08/17 13:13 Hct 26.3 % (42.0-52.0) L 05/08/17 13:13 MCV 89.2 fL (80.0-105.0) 05/08/17 13:13 MCH 30.5 pg (25.0-35.0) 05/08/17 13:13 MCHC 34.2 g/dl (31.0-37.0) 05/08/17 13:13 RDW 14.1 % (11.5-14.5) 05/08/17 13:13 Plt Count 214 10^3/uL (120.0-450.0) 05/08/17 13:13 MPV 9.7 fl (7.0-11.0) 05/08/17 13:13 Gran % 82.9 % (50.0-68.0) H 05/08/17 13:13 Lymph % (Auto) 8.3 % (22.0-35.0) L 05/08/17 13:13 [place] % (Auto) 7.6 % (1.0-6.0) H 05/08/17 13:13 Eos % (Auto) 1.1 % (1.5-5.0) L 05/08/17 13:13 Baso % (Auto) 0.1 % (0.0-3.0) 05/08/17 13:13 Gran # 9.45 (1.4-6.5) H 05/08/17 13:13 Lymph # 0.9 (1.2-3.4) L 05/08/17 13:13 [place] # 0.9 (0.1-0.6) H 05/08/17 13:13 Eos # 0.1 (0.0-0.7) 05/08/17 13:13 Baso # 0.01 K/mm3 (0.0-2.0) 05/08/17 13:13 Sodium 134 mmol/L (132-148) 05/08/17 20:35 Potassium 3.9 mmol/L (3.6-5.0) 05/08/17 20:35 Chloride 96 mmol/L (98-107) L 05/08/17 20:35 Carbon Dioxide 27 mmol/L (21-33) 05/08/17 20:35 Anion Gap 15 (10-20) 05/08/17 20:35 BUN 49 mg/dL (7-21) H 05/08/17 20:35 Creatinine 5.8 mg/dL (0.5-1.4) H 05/08/17 20:35 Est GFR ( Amer) 12 05/08/17 20:35 Est GFR (Non-Af Amer) 10 05/08/17 20:35 POC Glucose (mg/dL) 151 mg/dL (65-110) H 05/09/17 07:28 Random Glucose 188 mg/dL (70-110) H 05/08/17 20:35 Calcium 8.6 mg/dL (8.4-10.5) 05/08/17 20:35 Phosphorus 5.3 mg/dL (2.5-4.5) H 05/08/17 13:13 Magnesium 2.3 mg/dL (1.7-2.2) H 05/08/17 13:13 Total Bilirubin 1.0 mg/dL (0.2-1.3) 05/08/17 20:35 AST 44 U/L (15-59) 05/08/17 20:35 ALT 64 U/L (7-56) H 05/08/17 20:35 Alkaline Phosphatase 90 U/L (38-133) 05/08/17 20:35 Lactate Dehydrogenase 711 U/L (333-699) H 05/07/17 23:58 Total Creatine Kinase 701 U/L (35-230) H 05/07/17 23:58 CK-MB (CK-2) 15.4 ng/mL (0.0-3.6) H 05/07/17 23:58 CK-MB (CK-2) % 2.2 % (2.5-3.0) L 05/07/17 23:58 Troponin I 0.06 ng/mL 05/07/17 23:58 Total Protein 5.7 g/dL (5.8-8.3) L 05/08/17 20:35 Albumin 3.1 g/dL (3.0-4.8) 05/08/17 20:35 Globulin 2.6 gm/dL 05/08/17 20:35 Albumin/Globulin Ratio 1.2 (1.1-1.8) 05/08/17 20:35 Lipase 145 U/L (23-300) 05/07/17 17:36 TSH 3rd Generation 0.03 mIU/mL (0.46-4.68) L 05/08/17 13:13 - Hospital Course Hospital Course: at bed side rpt K-3.9 no new complaints except cough,he has syrup at home c\o mouth sores BS better controlled on nystatin ness, MVI magic mouth wash Discharge Exam - Additional Findings Additional findings: - Constitutional Appears: not In Acute Distress - Head Exam Head Exam: ATRAUMATIC, NORMAL INSPECTION, NORMOCEPHALIC - Eye Exam Eye Exam: Normal appearance (right rye- blind) Additional comments: right eye blind - ENT Exam ENT Exam: Mucous Membranes Moist - Neck Exam Neck exam: Negative for: Lymphadenopathy, Tenderness - Respiratory Exam Respiratory Exam: no Accessory Muscle Use, no Rales, no Rhonchi, no Wheezes, no Respiratory Distress, no Stridor Additional comments: b\l all over - Cardiovascular Exam Cardiovascular Exam: Irregular Rhythm, Systolic Murmur - GI/Abdominal Exam GI & Abdominal Exam: Normal Bowel Sounds, Soft. absent: Tenderness Additional comments: obese - Extremities Exam Extremities exam: Positive for: full ROM. Negative for: pedal edema, pedal pulses present Additional comments: b\l leg scars right arm- bruise left arm bruit\A-F fistula - Back Exam Back exam: absent: paraspinal tenderness, vertebral tenderness - Neurological Exam Neurological exam: Alert, Normal Gait, Oriented x3 - Psychiatric Exam Psychiatric exam: Normal Mood - Skin Skin Exam: Intact, no new Petechiae furrows on tonuge with cracks near corners of mouth - Additional Findings Additional findings: PM om chest wall Discharge Plan - Follow Up Plan Condition: FAIR Disposition: HOME/ ROUTINE Instructions: Sodium Polystyrene Sulfonate (By mouth), Hyperkalemia (DC) Additional Instructions: Follow up with your primary doctor in 1 week and follow up with Dr Daniels for sleep study as directed. Referrals: Virginia Rios MD [Primary Care Provider] -
== END 2017-05-09 14:12 | disposition home or self-care (01) ==
LOC: ED 16:26 → ERH 19:24 → 2RNO 22:14
PROVIDERS: ADMIT Internal Medicine; ATTEND Internal Medicine
DX: E87.5 Hyperkalemia (principal); E11.65 Type 2 diabetes mellitus with hyperglycemia; Z79.4 Long term (current) use of insulin; I42.9 Cardiomyopathy, unspecified; E66.9 Obesity, unspecified; Z68.30 Body mass index [BMI] 30.0-30.9, adult; I10 Essential (primary) hypertension; I48.91 Unspecified atrial fibrillation
CPT/HCPCS: 36415; 71010; 80053; 82550; 82553; 82948; 83615; 83690; 83735; 84100; 84132; 84443; 84484; 85025; 93005; 94640; 99285; G0257; G0378; J7509